=== PATIENT | female | born 1950 | race Caucasian/White ===

== ENCOUNTER 2021-11-12 11:35 | Outpatient (CLI) | payer MEDICARE, OTHER, SELFPAY ==
[2021-11-12 13:57] LABS: Cholesterol* 193 mg/dL (90-199); Triglycerides* 163 mg/dL (40-149)
[2021-11-12 13:58] LABS: HDL Cholesterol* 57 mg/dL (>=50); LDL Cholesterol Calculated 103 mg/dL (<100)
[2021-11-12 14:31] LABS: Vitamin D 25 Hydroxy* 34 ng/mL (30-80)
== END 2021-11-12 11:36 | disposition home or self-care (01) ==
LOC: RAD 11:37
PROVIDERS: PCP Internal Medicine; Visit Provider Internal Medicine
DX: Z00.00 Encounter for general adult medical examination without abnormal findings (principal); M81.0 Age-related osteoporosis without current pathological fracture; E78.5 Hyperlipidemia, unspecified; R51.9 Headache, unspecified; F32.9 Major depressive disorder, single episode, unspecified; F41.9 Anxiety disorder, unspecified
CPT/HCPCS: 36415; 80061; 82306

== ENCOUNTER 2022-01-17 13:59 | Outpatient (CLI) | payer MEDICARE, OTHER, SELFPAY ==
--- NOTE | 2022-01-17 14:00 | CRLHL7_ITS ---
For Patients: As a result of the Century Cures Act, medical imaging exams and procedure reports are released immediately into your electronic medical record. You may view this report before your referring provider. If you have questions, please contact your health care provider. DXA BONE MINERAL DENSITY STUDY Current height (in): 67.5. Weight (lb): 175.0. Menopause age: 44. Ethnicity: White. 1. Have you had a previous hip or vertebral fracture? Yes. 2. Have you had any fractures during your adult life which did not result from significant trauma (e.g., auto accident)? Yes. 3. Did either of your parents have a hip fracture? Yes. 4. Do you smoke? No. 5. Have you ever taken Glucocorticoids? No. 6. Do you have rheumatoid arthritis? No. 7. Do you have secondary osteoporosis? No. 8. Do you drink 3 or more alcoholic drinks per day? No. 9. Are you being treated for osteoporosis? No. 10. Have you ever taken any of the following medications: Actonel, Evista, Fosamax, Miacalcin, Reclast, Boniva, Forteo, HRT (i.e. estrogen/hormone therapy), Protelos, Prolia, Vitamin D, Calcium, other ??? please specify. ANSWER: Yes, Fosamax, vitamin D, calcium. 11. Do you have any of the following medical conditions: Anorexia or bulimia, asthma or emphysema, end stage renal disease, hyperparathyroidism, any seizure disorders, cancer, inflammatory bowel diseases, hysterectomy, other ??? please specify. ANSWER: Yes, stroke 2009. 12. What was your maximum height (inches)? Not provided. 13. Do you perform weight bearing exercise regularly? Yes. 14. Do you regularly consume dairy products? Yes. 15. Do you drink caffeinated beverages? Yes. If female: 16. At what age did your period start? 17. 17. Are you premenopausal? No. 18. How many full term pregnancies have you had? 1. 19. Have you ever missed your period for more than 6 months in a row (not including or menopause)? No. TECHNIQUE: Bone mineral density study was performed using the [employer] [facility]. FINDINGS: The results of the study expressed as bone mineral density (BMD) are as follows: Lumbar spine L1 to L3: BMD: 0.716 g/cm2. T-score: -2.7. Z-score: -0.7. Neck Left: BMD: 0.440 g/cm2. T-score: -3.7. Z-score: -1.9. Total Left: BMD: 0.629 g/cm2. T-score: -2.6. Z-score: -1.1. IMPRESSION: Osteoporosis. COMPARISON: Compared with scan of 04/02/2010, the bone mineral density has increased by 1.4 percent at the spine and decreased by 9.3 percent at the left hip. Bandar Rodriguez M.D. Diagnostic Radiologist [email or web address] Transcribed: 9:30 a.m. DW/Dictated by: Bandar Rodriguez MD @ 01/18/2022 8:22:00 AM (Electronically Signed)
--- NOTE | 2022-01-17 14:40 | CRLHL7_ITS ---
For Patients: As a result of the Century Cures Act, medical imaging exams and procedure reports are released immediately into your electronic medical record. You may view this report before your referring provider. If you have questions, please contact your health care provider. BILATERAL SCREENING MAMMOGRAM WITH COMPUTER-AIDED DETECTION AND TOMOSYNTHESIS TECHNIQUE: CC and MLO views were obtained. These mammographic images have been obtained using full-field digital technique. These mammographic images were interpreted with the benefit of computer-aided detection. Breast Tomosynthesis was used in this interpretation. COMPARISON FILM: 10/04/20, 03/01/19, 04/01/17. FINDINGS: There are scattered areas of fibroglandular density IMPRESSION: There is no radiographic evidence for malignancy. ASSESSMENT: BI-RADS Category 2: Benign RECOMMENDATION: Routine screening mammogram in 1 year. A lay language report of this examination will be provided to the patient. Bandar Rodriguez M.D. Diagnostic Radiologist [email or web address] TIRSO/Dictated by: Bandar Rodriguez MD @ 01/18/2022 8:10:00 AM (Electronically Signed)
== END 2022-01-17 14:00 | disposition home or self-care (01) ==
LOC: RAD 13:59
PROVIDERS: PCP Internal Medicine; Visit Provider Internal Medicine
DX: Z12.31 Encounter for screening mammogram for malignant neoplasm of breast (principal); M81.0 Age-related osteoporosis without current pathological fracture
CPT/HCPCS: 77063; 77067; 77080

== ENCOUNTER 2022-02-06 16:21 | Outpatient (CLI) | payer MEDICARE, OTHER, SELFPAY ==
[2022-02-06 12:18] LABS: Creatinine* 0.6 mg/dL (0.5-1.5); Estimated Glomerular Filt Rate 97 ml/min
[2022-02-06 17:03] LABS: Calcium* 9.5 mg/dL (8.4-10.6)
== END 2022-02-06 16:22 | disposition home or self-care (01) ==
PROVIDERS: PCP Internal Medicine; Visit Provider Internal Medicine
DX: M81.0 Age-related osteoporosis without current pathological fracture (principal)
CPT/HCPCS: 82310; 82565

== ENCOUNTER 2022-03-01 09:54 | Outpatient (RCR) | payer MEDICARE, OTHER, SELFPAY ==
--- NOTE | 2022-02-13 10:22 | URNOTE ---
Request received for authorization for Zoledronic acid (Reclast) ([id number]). Prior authorization is not required as services are based on medical necessity and follow Medicare guidelines.
[2022-03-01 10:30] VITALS: BP 129/86; PULSE 81; RESP 16; TEMP 36.1; O2SAT 94
--- NOTE | 2022-03-01 16:29 | ONC.NURNOTE ---
ca 9.5. cr. clear. 86. ok to give reclast.
== END 2022-08-28 23:59 | disposition home or self-care (01) ==
LOC: CCIC 09:54
PROVIDERS: PCP Internal Medicine; Referring Provider Internal Medicine; Visit Provider Internal Medicine
DX: M81.0 Age-related osteoporosis without current pathological fracture (principal)
CPT/HCPCS: 96365; J3489

== ENCOUNTER 2022-07-28 12:01 | Observation (INO) | payer MEDICARE, OTHER, SELFPAY ==
[2022-07-28] VITALS (9 sets, daily range): BP systolic 126–171; BP diastolic 80–106; PULSE 76–97; RESP 16–22; TEMP 36.6–36.8; O2SAT 85–95; BMI 28.2; BMI 27.6
--- NOTE | 2022-07-28 12:32 | ED.URI ---
HPI - URI/Sore Throat General Time Seen by Provider: 12:32 Date Seen: 07/28/22 Chief Complaint: Cough Stated Complaint: Short of breath, cough Time Seen by Provider: 07/28/22 12:15 Source: patient Mode of arrival: ambulatory Limitations: no limitations History of Present Illness HPI Narrative: Pat is a very pleasant 72-year-old female with a history of hemorrhagic stroke with right-sided paralysis, anxiety who is here today for evaluation regarding a cough and shortness of breath. Patient had the onset of symptoms on Friday night and complained to her friend who is here on of a cough. She was tested for COVID on July 26 and yesterday and was negative. Note onset of symptoms on but not feeling well on Friday night. Patient notes chronic difficulty with chronic congestion of the right lung because of her hemiparesis. She has not had a fever but has had mild nausea. No diarrhea. Denies sore throat or runny nose. She did have Tylenol this morning at 0800 hours and she thinks that this helped her and she was feeling better. Her major complaint is a headache with coughing. Related Data Home Medications Medication Instructions Recorded Confirmed calcium-vitamin D3-vitamin K 500 1 tab PO BID 11/12/21 05/28/22 mg-200 unit-40 mcg tablet Previous Rx's Medication Instructions Recorded baclofen 10 mg tablet 10 mg PO BID #180 tabs 11/12/21 fluoxetine 40 mg capsule 40 mg PO DAILY #90 caps 11/12/21 gabapentin 100 mg capsule 100 mg PO TID #270 caps 11/12/21 omeprazole 20 mg capsule,delayed 20 mg PO QAM #90 caps 11/12/21 release simvastatin 20 mg tablet 20 mg PO .Bedtime #90 tabs 11/12/21 acetaminophen 500 mg tablet 1,000 mg PO BID PRN fever or pain 05/07/22 #360 tabs benzoyl peroxide 2.5 % topical gel 1 applic topical QAM #60 grams 05/07/22 clindamycin phosphate 1 % topical 1 applic topical .Bedtime #60 grams 05/07/22 gel sennosides 8.6 mg tablet 3 mg PO BID PRN constipation #180 05/07/22 tabs Allergies Allergy/AdvReac Type Severity Reaction Status Date / Time sulfamethoxazole AdvReac Mild Nausea Verified 11/12/21 11:02 [From Sulfamethoxazole-Trimethoprim] trimethoprim AdvReac Mild Nausea Verified 11/12/21 11:02 [From Sulfamethoxazole-Trimethoprim] Review of Systems Status of ROS: Reports: 10 or more systems reviewed and unremarkable except as noted in History and below Const: Reports: chills and fatigue; Denies: fever ENMT: Reports: difficulty swallowing (Chronic on the right); Denies: throat pain or neck pain Cardio: Reports: lightheadedness and shortness of breath with exertion; Denies: chest pain or swelling of feet/ankles Resp: Reports: shortness of breath, cough and wheezing GI: Reports: nausea and difficulty swallowing (Chronic on the right); Denies: abdominal pain, vomiting or diarrhea Musculo: Denies: neck pain Neuro: Reports: headache (With coughing) Psych: Reports: anxiety Endo: Reports: fatigue Allergy/Immuno: Reports: wheezing PFSH PFSH Medical History Abscess of skin and subcutaneous tissue ?L02.91 - Cutaneous abscess, unspecified (ICD-10) History of pelvic fracture (2012) ?Z87.81 - Personal history of (healed) traumatic fracture (ICD-10) History of small bowel obstruction (02/2011) ?Z87.19 - Personal history of other diseases of the digestive system (ICD-10) Surgical History History of craniotomy (04/2009) ?Z98.890 - Other specified postprocedural states (ICD-10) History of laparoscopic appendectomy (12/2010) ?Z90.49 - Acquired absence of other specified parts of digestive tract (ICD-10) History of open reduction and internal fixation (ORIF) procedure (05/2010) ?Z98.890 - Other specified postprocedural states (ICD-10) Family History Unknown Colon polyps Social History Smoking Status: Never smoker How often do you have a drink containing alcohol: never AUDIT-C Alcohol total score: 0 Non-prescribed substance use: denies use Little interest or pleasure in doing things: not at all Feeling down, depressed, or hopeless: not at all Exam Narrative: Exam Narrative: Patient is alert and oriented. Nontoxic in appearance. She is breathing a quite well with oxygen levels at 90-91% occasionally 93%. If she tells me that she is short of breath she suddenly developed some wheezing. However this is distractible. EOM is full. Obvious cranial deformity on the left episcopalian parietal area. Well-healed. Oral cavity with moist mucous membranes. Neck is supple no lymphadenopathy Heart with regular rate and rhythm. Lungs are clear bilaterally. Perhaps some decreased breath sounds in the right lower lung base. Abdomen is soft nontender. Lower extremities with out a significant edema. Const: Vital Signs, click to edit/add: Vital Signs - 24 hr 07/28/22 12:25 07/28/22 15:16 07/28/22 15:02 Temperature 98.3 F Pulse Rate 97 Pulse Rate [Pulse Oximeter] 95 Respiratory Rate 17 Blood Pressure [Le ft Upper Arm] 171/106 H Pulse Oximetry 93 90 85 L Oxygen Delivery Me thod Room Air Nasal Cannula Room Air Oxygen Flow Rate 4 07/28/22 15:10 Temperature Pulse Rate Pulse Rate [Pulse Oximeter] Respiratory Rate Blood Pressure [Le ft Upper Arm] Pulse Oximetry Oxygen Delivery Me thod Nasal Cannula Oxygen Flow Rate 4 Documenting provider has reviewed patient's vital signs: yes Course Course Hospital Course: Patient is strongly suspicious for COVID although she has had 2- tests at [facility] where she currently resides. COVID PCR/influenza currently ordered. Will place an IV and order CBC, comprehensive, CRP, chest x-ray, and give small bolus of IV fluids 500 mL. Tylenol 1 g p.o. Reevaluation(s) Reevaluation #1: Patient noted to have a positive urinalysis. A admittedly it is somewhat contaminated but I do believe this is real. Patient will be treated with 1 g IV Rocephin. O2 sats continue to dip down to 88-89%. Will try some oxygen to see if her shortness of breath is improved. X-ray was reassuring but given patient's complaint and mild hypoxia have ordered a CT of the chest for PE rule out. Surprisingly COVID is negative. White count slightly depressed. Reevaluation #2: Patient much improved on oxygen. O2 sats now 93-98%. Subjectively also much improved. CT done but results are currently pending. Vital Signs Vital signs: Initial Vital Signs Temperature 98.3 F 07/28/22 12:25 Temperature Source Temporal Artery Scan 07/28/22 12:25 Pulse Rate 95 07/28/22 12:25 Respiratory Rate 17 07/28/22 12:25 Blood Pressure 171/106 H 07/28/22 12:25 Blood Pressure Mean 127 07/28/22 12:25 Pulse Oximetry 93 07/28/22 12:25 Oxygen Delivery Method Room Air 07/28/22 12:25 Vital Signs Temperature 98.3 F 07/28/22 12:25 Pulse Rate 95 07/28/22 12:25 Respiratory Rate 17 07/28/22 12:25 Blood Pressure 171/106 H 07/28/22 12:25 Pulse Oximetry 93 07/28/22 12:25 Oxygen Delivery Method Room Air 07/28/22 12:25 Temperature 98.3 F 07/28/22 12:25 Pulse Rate 97 07/28/22 15:02 Respiratory Rate 17 07/28/22 12:25 Blood Pressure 171/106 H 07/28/22 12:25 Pulse Oximetry 90 07/28/22 15:16 Oxygen Delivery Method Nasal Cannula 07/28/22 15:16 Oxygen Flow Rate 4 07/28/22 15:16 MDM - URI/Sore Throat MDM Narrative Medical decision making narrative: 1. UTI-Rocephin 1 g IV. Culture pending. 2. Viral syndrome-patient has tested negative for COVID but certainly mild leukopenia, hypoxia and shortness of breath suggest this to be the cause of patient's symptoms. CT accomplished and results are currently pending. Dr. Villela will follow-up on these. 3. Headache patient has headache only with cough. Tylenol 1 g given at noon. No new neurological deficits. 4. . Disposition-admission to the floor under the care of hospitalist Dr. Checo Villela. Medical Records Attestation: I reviewed the patient's medical records. Lab Data Attestation: I reviewed the patient's lab results. Labs: Lab Results 07/28/22 07/28/22 07/28/22 Range/Units 12:30 13:20 13:40 WBC 4.30 L (4.50-11.00) K/uL RBC 5.12 (4.00-5.20) m/uL Hgb 16.1 H (12.0-16.0) gm/dL Hct 48.0 (33.0-51.0) % MCV 94 (80-100) fL MCH 31 (26-34) pg MCHC 34 (32-36) gm/dL RDW Coeff of Alex 13.2 (11.5-15.5) % Plt Count 221 (140-440) K/uL Neut % (Auto) 58.2 (42.0-72.0) % Lymph % (Auto) 33.7 (20-44) % [place] % (Auto) 7.9 (0.0-11.0) % Eos % (Auto) 0.2 (0.0-7.0) % Baso % (Auto) 0.0 (0.0-3.0) % Neut # (Auto) 2.50 (1.7-7.0) K/uL Lymph # (Auto) 1.40 (0.90-2.90) K/uL [place] # (Auto) 0.30 (0.00-0.90) K/UL Eos # (Auto) 0.00 (0.00-0.50) K/uL Baso # (Auto) 0.00 (0.00-0.30) K/uL Sodium 141 (135-149) mmol/L Potassium 3.5 L (3.6-5.1) mmol/L Chloride 110 (96-114) mmol/L Carbon Dioxide 23 (20-32) mmol/L BUN 7 (7-30) mg/dL Creatinine 0.4 L (0.5-1.5) mg/dL Estimated Creat Clear 49.00 Estimated GFR 106 ml/min Glucose 100 (60-115) mg/dL Lactate 0.9 (0.5-1.9) mmol/L Calcium 9.0 (8.4-10.6) mg/dL Total Bilirubin 0.8 (0.1-1.5) mg/dL AST 27 (12-35) U/L ALT 24 (4-35) U/L Alkaline Phosphatase 98 (40-150) U/L Troponin I < 0.01 L (0.01-0.04) ng/mL C-Reactive Protein 1.4 H (0.5-1.0) mg/dL Total Protein 7.7 (6.0-8.3) g/dL Albumin 4.3 (3.3-5.0) g/dL Urine Color Light yellow (Yellow) Urine Appearance Cloudy A (Clear) Urine pH 7.0 (5.0-8.5) Ur Specific Cardinal 1.010 (1.000-1.030) Urine Protein Negative (Negative) Urine Glucose (UA) Negative (Negative) Urine Ketones Trace A (Negative) Urine Blood 1+ A (Negative) Urine Nitrite Positive A (Negative) Urine Bilirubin Negative (Negative) Urine Urobilinogen 0.2 (0.2-1.0) Ur Leukocyte Esterase 3+ A (Negative) Urine RBC 5-10 A (0-2) Urine WBC >100 A (0-5) Ur Squamous Epith Cells Moderate A (None-Few) Urine Bacteria Many A (None) SARS-CoV-2 (PCR) Negative SARS-CoV-2 (Negative) Influenza Type A (PCR) Negative PCR FLU A (Negative) Influenza Type B (PCR) Negative PCR FLU B (Negative) Imaging Data Chest x-ray: Attestation: I have reviewed the pertinent imaging results. My impression: No obvious infiltrates Radiologist's impression: o new focal pulmonary opacity, pneumothorax, or pleural effusion. Normal cardiac size. Similar thoracic aortic tortuosity. IMPRESSION: No acute cardiopulmonary findings. Discharge Plan Discharge Clinical Impression: URI (upper respiratory infection), Hypoxia, Acute UTI Patient Disposition: Admitted As Inpatient Condition: Improved
--- NOTE | 2022-07-28 12:53 | CRLHL7_ITS ---
For Patients: As a result of the Century Cures Act, medical imaging exams and procedure reports are released immediately into your electronic medical record. You may view this report before your referring provider. If you have questions, please contact your health care provider. INDICATION: Cough. TECHNIQUE: Portable AP chest radiograph. COMPARISON: 05/04/2021. FINDINGS: No new focal pulmonary opacity, pneumothorax, or pleural effusion. Normal cardiac size. Similar thoracic aortic tortuosity. IMPRESSION: No acute cardiopulmonary findings. Dictated by Dmitriy Jones MD @ 07/28/2022 1:59:06 PM Dictated by: Dmitriy Jones MD @ 07/28/2022 13:59:09 (Electronically Signed)
[2022-07-28] MEDS: ACETAMINOPHEN 500 MG TABLET 1000 MG PO ×2 (13:10→21:07)
[2022-07-28] MEDS: GABAPENTIN 100 MG CAPSULE PO ×2 (13:10→21:08)
[2022-07-28 13:12] LABS: PCR FLU A Negative PCR FLU A (Negative); PCR FLU B Negative PCR FLU B (Negative)
[2022-07-28 13:16] LABS: SARS PCR* Negative SARS-CoV-2 (Negative)
[2022-07-28] MEDS: 0.9 % SODIUM CHLORIDE 500 ML 500 ML IV (13:20)
[2022-07-28 13:30] LABS: Eosinophils Percent Auto 0.2 % (0.0-7.0); Hemoglobin* 16.1 gm/dL (12.0-16.0); Lymphocytes Percent Auto 33.7 % (20-44); Mean Corpuscular HGB Conc 34 gm/dL (32-36); Mean Corpuscular Hemoglobin 31 pg (26-34); Mean Corpuscular Volume 94 fL (80-100); Monocytes Percent Auto 7.9 % (0.0-11.0); Neutrophils Percent Auto 58.2 % (42.0-72.0); Platelet Count* 221 K/uL (140-440); RDW Coefficient of Variation % 13.2 % (11.5-15.5); Red Blood Count 5.12 m/uL (4.00-5.20)
[2022-07-28 13:31] LABS: Lactate* 0.9 mmol/L (0.5-1.9)
[2022-07-28 13:32] LABS: Slide Review Reflex No
[2022-07-28 13:50] LABS: Appearance Urine Cloudy (Clear); Bilirubin Urine Negative (Negative); Blood Urine 1+ (Negative); Color Urine Light yellow (Yellow); Glucose Urine Negative (Negative); Ketones Urine Trace (Negative); Leukocyte Esterase Urine 3+ (Negative); Nitrite Urine Positive (Negative); Protein Urine Negative (Negative); Urobilinogen Urine 0.2 (0.2-1.0)
[2022-07-28 13:51] LABS: Albumin* 4.3 g/dL (3.3-5.0); Chloride* 110 mmol/L (96-114); Sodium* 141 mmol/L (135-149)
[2022-07-28 13:52] LABS: Potassium* 3.5 mmol/L (3.6-5.1)
[2022-07-28 13:54] LABS: Creatinine* 0.4 mg/dL (0.5-1.5); Estimated Glomerular Filt Rate 106 ml/min
[2022-07-28 13:55] LABS: Alanine Aminotransferase* 24 U/L (4-35); Alkaline Phosphatase* 98 U/L (40-150); Aspartate Amino Transferase* 27 U/L (12-35); Bilirubin Total* 0.8 mg/dL (0.1-1.5); Blood Urea Nitrogen* 7 mg/dL (7-30); Carbon Dioxide* 23 mmol/L (20-32); Glucose* 100 mg/dL (60-115); Total Protein* 7.7 g/dL (6.0-8.3)
[2022-07-28 13:58] LABS: C Reactive Protein* 1.4 mg/dL (0.5-1.0)
[2022-07-28 14:11] LABS: Troponin I* < 0.01 ng/mL (0.01-0.04)
[2022-07-28 14:12] LABS: Bacteria Urine Many; Squamous Epithelial Cell Urine Moderate (None-Few); WBC Urine >100 (0-5)
--- NOTE | 2022-07-28 14:37 | CRLHL7_ITS ---
For Patients: As a result of the Century Cures Act, medical imaging exams and procedure reports are released immediately into your electronic medical record. You may view this report before your referring provider. If you have questions, please contact your health care provider. INDICATION: Hypoxia. Shortness of breath. COMPARISON: Chest radiograph from today. TECHNIQUE: CT examination of the chest was performed with the uneventful intravenous administration of 95 cc of Isovue 370 while 1.5 mm thick axial sections were obtained from above the apices of the lungs through the mid renal level. Please note that all CT scans at this facility use dose modulation, iterative reconstruction, and/or weight-based dosing when appropriate to reduce radiation dose to as low as reasonably achievable. FINDINGS: : There is no sign of pulmonary embolism, with normal enhancement and branching of the pulmonary arteries. There is mild eventration of the left hemidiaphragm with mild atelectasis along the posterior left hemidiaphragm. The rest of the chest is clear. There is no sign of mediastinal or hilar mass or adenopathy. The heart is normal in appearance for the patient`s age. There is age appropriate appearance of the thoracic aorta and ascending great vessels. There is no sign of supraclavicular or axillary mass or adenopathy. The visualized superior liver, spleen, pancreas, kidneys, and adrenals are normal in appearance. There is a small hiatal hernia. There is mild loss of T10 vertebral body height with a mild superior endplate fracture of indeterminate age. There is a mild superior T11 endplate fracture without loss of vertebral body height. This is of indeterminate age. IMPRESSION: No sign of pulmonary embolism. No significant abnormality in the chest. Small hiatal hernia. Mild T10 compression fracture with mild superior T10 and T11 endplate fractures, of indeterminate age. Please note that all CT scans at this facility use dose modulation, iterative reconstruction, and/or weight-based dosing when appropriate to reduce radiation dose to as low as reasonably achievable. Dictated by Adalberto Phillip MD @ 07/28/2022 3:57:50 PM (Electronically Signed)
[2022-07-28] MEDS: cefTRIAXone 1 GM in 0.9 % SODIUM CHLORIDE Mini-bag 100 ML IVPB (15:15)
--- NOTE | 2022-07-28 16:13 | ED.NURSE ---
Report given to PREETHI [place].
--- NOTE | 2022-07-28 16:22 | ED.NURSE ---
Pt brought down to M/S via cart by EDT with belongings and personal w/c. Tolerated transfer well.
--- NOTE | 2022-07-28 16:44 | RESP.RT ---
Patient had drop of SaO2 to 85%, was placed on 4 Lpm NC in ED, weaned to 2 Lpm NC by Nursing. Moved to Med/Surg, placed on NC 2 Lpm, SaO2 95%. Bilateral breath sound with fine crackles and very slight expiratory wheeze in right base. clears with wet/moist, coarse, loose, non-productive cough, patient possible swallowed secretions. Patient has effective cough, able to clear secretions when present. When encouraged patient is able to large deep breath.
--- NOTE | 2022-07-28 17:17 | PM.IMHP1 ---
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 Patient awoke Friday night with cough and dyspnea. She says it is worse when she is supine. The cough is quite difficult for her, because as a sequelae of her hemorrhagic stroke, her head hurts whenever she coughs. She has not had a fever. She does feel some dyspnea. She has had some minor upper respiratory symptoms including a scratchy throat and some head congestion. She self tested for COVID a couple times with negative results. She is not having any pain associated with breathing just with coughing. She does not have chest pain or abdominal pain. She does have some chronic pain problems as a sequelae of her hemorrhagic stroke which occurred 13 years ago. No history of lung disease. No history of heart disease. Review of Systems Narrative: She reports no other new concerns other than noted above. Chronically she is most bothered by a pain syndromes related to her hemorrhagic stroke. She currently has some ability to bear weight on her right lower extremity button minimal function in her right upper extremity. [facility] Medical History Abscess of skin and subcutaneous tissue ?L02.91 - Cutaneous abscess, unspecified (ICD-10) History of pelvic fracture (2012) ?Z87.81 - Personal history of (healed) traumatic fracture (ICD-10) History of small bowel obstruction (02/2011) ?Z87.19 - Personal history of other diseases of the digestive system (ICD-10) Surgical History History of craniotomy (04/2009) ?Z98.890 - Other specified postprocedural states (ICD-10) History of laparoscopic appendectomy (12/2010) ?Z90.49 - Acquired absence of other specified parts of digestive tract (ICD-10) History of open reduction and internal fixation (ORIF) procedure (05/2010) ?Z98.890 - Other specified postprocedural states (ICD-10) Family History (Updated 07/28/22 @ 17:22 by Kirill Villela MD) Unknown Colon polyps Brother COPD (chronic obstructive pulmonary disease) Coronary artery disease Lung cancer Diabetes Social History (Updated 07/28/22 @ 17:23 by Kirill Villela MD) Narrative: She lives at [facility]. She is relatively independent in transfers. 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 She walks in the hallway holding onto the railing every day. She has a remote history of minimal smoking. She does not drink alcohol. Code status is full. Smoking Status: Never smoker How often do you have a drink containing alcohol: never AUDIT-C Alcohol total score: 0 Non-prescribed substance use: denies use Little interest or pleasure in doing things: not at all Feeling down, depressed, or hopeless: not at all Meds Home Medications and Allergies Home Medications Medication Instructions Recorded Confirmed Type calcium-vitamin D3-vitamin K 500 1 tab PO BID 11/12/21 07/28/22 History mg-200 unit-40 mcg tablet Allergies Allergy/AdvReac Type Severity Reaction Status Date / Time sulfamethoxazole AdvReac Mild Nausea Verified 11/12/21 11:02 [From Sulfamethoxazole-Trimethoprim] trimethoprim AdvReac Mild Nausea Verified 11/12/21 11:02 [From Sulfamethoxazole-Trimethoprim] Exam Narrative: Exam Narrative: She is alert and appears in no distress. A course rhonchus cough is noted. Breathing appears unlabored with supplemental oxygen. Eyes are normal. Pupils are equal round reactive to light. Oropharynx with dry mucous membranes. Neck is supple without mass or adenopathy or tenderness. Palpation of the head noted tenderness in the low left frontal parietal area from prior craniotomy. No other apparent trauma. Respirations are clear to auscultation without wheezing rales or rhonchi. Breathing is unlabored. Cardiovascular: S1, S2, regular rate and rhythm. No murmur gallop or rub. Abdomen: Bowel sounds active. Abdomen is soft without tenderness or mass. External genitalia normal. Palpation over her back shows no tenderness and no skin breakdown. Lower extremities with trace edema bilaterally. She is able to lift her right foot off the bed but has minimal motion in her right foot. She has intact pedal pulses. Feet are warm to touch with good circulation. Skin is without rash. Const: Vital Signs, click to edit/add: Vital Signs - 24 hr 07/28/22 12:25 07/28/22 15:16 07/28/22 15:02 Temperature 98.3 F Pulse Rate 97 Pulse Rate [Left B rachial] Pulse Rate [Pulse Oximeter] 95 Respiratory Rate 17 Blood Pressure Blood Pressure [Le ft Arm] Blood Pressure [Le ft Upper Arm] 171/106 H Pulse Oximetry 93 90 85 L Oxygen Delivery Me thod Room Air Nasal Cannula Room Air Oxygen Flow Rate 4 07/28/22 15:10 07/28/22 15:35 07/28/22 16:15 Temperature Pulse Rate 88 91 Pulse Rate [Left B rachial] Pulse Rate [Pulse Oximeter] Respiratory Rate Blood Pressure 167/95 H Blood Pressure [Le ft Arm] Blood Pressure [Le ft Upper Arm] Pulse Oximetry 93 89 Oxygen Delivery Me thod Nasal Cannula Nasal Cannula Oxygen Flow Rate 4 2 07/28/22 16:42 07/28/22 16:49 Temperature 98.3 F Pulse Rate Pulse Rate [Left B rachial] 76 Pulse Rate [Pulse Oximeter] Respiratory Rate 22 16 Blood Pressure Blood Pressure [Le ft Arm] 126/80 Blood Pressure [Le ft Upper Arm] Pulse Oximetry 95 94 Oxygen Delivery Me thod Nasal Cannula Nasal Cannula Oxygen Flow Rate 2 2 Documenting provider has reviewed patient's vital signs: yes Hospitalist - H&P: Result Labs Labs: Short CBC 07/28/22 Range/Units 13:20 WBC 4.30 L (4.50-11.00) K/uL Hgb 16.1 H (12.0-16.0) gm/dL Hct 48.0 (33.0-51.0) % Plt Count 221 (140-440) K/uL BMP 07/28/22 13:20 Sodium 141 Potassium 3.5 L Chloride 110 Carbon Dioxide 23 BUN 7 Creatinine 0.4 L Glucose 100 Calcium 9.0 Cardiac Enzymes 07/28/22 Range/Units 13:20 Troponin I < 0.01 L (0.01-0.04) ng/mL Liver Function 07/28/22 Range/Units 13:20 Total Bilirubin 0.8 (0.1-1.5) mg/dL AST 27 (12-35) U/L ALT 24 (4-35) U/L Alkaline Phosphatase 98 (40-150) U/L Albumin 4.3 (3.3-5.0) g/dL Urine 07/28/22 Range/Units 13:40 Urine Color Light yellow (Yellow) Urine Appearance Cloudy A (Clear) Urine pH 7.0 (5.0-8.5) Ur Specific [place] 1.010 (1.000-1.030) Urine Protein Negative (Negative) Urine Glucose (UA) Negative (Negative) Imaging CT scan - chest: Attestation: I have reviewed the pertinent imaging results. (Chest CT shows no acute infiltrate, no pulmonary embolism. Mild vertebral compression fractures lower thoracic spine.) Assessment and Plan Assessment and plan (1) Hypoxia: Status: Acute (2) Bronchitis: Status: Acute (3) Acute UTI: Status: Acute (4) RAJENDRA (generalized anxiety disorder): Problem comment: Fluoxetine started outside 11/06 Status: Chronic (5) History of hemorrhagic stroke with residual hemiparesis: Problem comment: Ruptured AVM. R hemiparesis. 04/2009 Status: Chronic Plan 72-year-old female with history of right hemiparesis secondary to hemorrhagic stroke 13 years ago now presents with a 3-4 day history of cough and dyspnea. She is found to be hypoxic requiring 2 L of oxygen to maintain her O2 sats above 90%. Imaging with CT for PE shows no acute PE or infiltrates. Clinically she has a syndrome of a viral respiratory illness. She also has a urinary tract infection. Will treat with ceftriaxone for respiratory infection and UTI and temporarily and treat with Zithromax for community-acquired pneumonia in pending her clinical course and her hypoxia. Total time is 60 min, 40 min in coordination of care and in discussing with patient and family ongoing evaluation and management of hypoxia and respiratory infection/
[2022-07-28 17:22] LABS: NT Pro B Type NatriureticPept* 137 pg/mL
--- NOTE | 2022-07-28 18:40 | PC.NURSE ---
shift note: pt to room @ 1645 via cart from ED. Pt a&o x3. pt states she has sharp lt side head pain with coughing. Pt has moist non productive cough. LS insp fine crkls bibasilar. pt placed on 2L pnc with sats 94-97%. Pt states she feels sob. pt placed in semi fowlers to assist with sob. Pt using bsc with assist of 2 (guidance only). pt rt u/e flaccid. rt l/e is flaccid but pt is able to guide l/e to pivot to surfaces. iv to Lt AC intact.
[2022-07-28] MEDS: AZITHROMYCIN 250 MG TABLET 500 MG PO (18:59)
[2022-07-28] MEDS: SIMVASTATIN 20 MG TABLET PO (21:08)
[2022-07-28] MEDS: GUAIF/CODEINE 200/20MG/10 ML SOLUTION PO (21:08)
[2022-07-28] MEDS: BACLOFEN 10 MG TABLET PO (21:08)
[2022-07-29 00:55] VITALS: O2SAT 91
[2022-07-29 03:36] VITALS: BP 149/84; PULSE 88; RESP 18; TEMP 37.1; O2SAT 93
[2022-07-29] MEDS: GUAIF/CODEINE 200/20MG/10 ML SOLUTION PO (03:46)
[2022-07-29] MEDS: ACETAMINOPHEN 325 MG TABLET 650 MG PO (04:56)
--- NOTE | 2022-07-29 06:29 | PC.NURSE ---
Pt pleasant and cooperative. Is manipulative at times with her care. She is able to due things that she says she cant. Assist of 2 to bedside commode. No BM . only once to commode during the night. Guafenasin with codiene x2 during this 12 hr shift. Prn dose of tylenol 650 mg x1
[2022-07-29 07:00] VITALS: O2SAT 92
[2022-07-29 07:55] VITALS: BP 148/85; PULSE 82; RESP 16; TEMP 36.9; O2SAT 92
[2022-07-29] MEDS: ACETAMINOPHEN 500 MG TABLET 1000 MG PO (09:07)
[2022-07-29] MEDS: FLUOXETINE HCL 20 MG CAPSULE 40 MG PO (09:08)
[2022-07-29] MEDS: cefTRIAXone 1 GM in 0.9 % SODIUM CHLORIDE Mini-bag 100 ML IVPB (09:09)
[2022-07-29] MEDS: GABAPENTIN 100 MG CAPSULE PO ×2 (09:09→12:56)
[2022-07-29] MEDS: BACLOFEN 10 MG TABLET PO (09:09)
[2022-07-29] MEDS: OMEPRAZOLE 20 MG CAPSULE DR PO (09:09)
[2022-07-29] MEDS: SODIUM CHLORIDE 0.9 % (FLUSH) 10 ML SYRINGE 5 ML IVF (09:11)
[2022-07-29] MEDS: SENNOSIDES 1 TAB TABLET PO (09:12)
--- NOTE | 2022-07-29 10:20 | PM.DS1 ---
DS: Providers Provider Time Seen by Provider: 09:30 Date Seen: 07/29/22 Date of admission: 07/28/22 16:00 Primary care physician: Daylin Rosales MD Admitting Clinician: Kirill Villela MD Attending Physician on discharge: Lara Schulz MD Date of Discharge: 07/29/22 DS: Diagnosis Discharge Diagnosis (1) URI (upper respiratory infection): Status: Acute Problem details: Suspect viral URI. No radiographic evidence of infection. (2) Acute UTI: Status: Acute Problem details: Gram-negative rods on urine culture. (3) RAJENDRA (generalized anxiety disorder): Status: Chronic Problem details: Fluoxetine started outside 11/06 (4) History of hemorrhagic stroke with residual hemiparesis: Status: Chronic Problem details: Ruptured AVM. R hemiparesis. 04/2009 DS: Summary Hospital Course Hospital Course: This is a 72-year-old female with history right hemiparesis secondary to stroke 13 years ago who lives in assisted living at [facility] and presented yesterday for cough, dyspnea and hypoxia. Chest x-ray and chest CT showed no acute infiltrates. She is needing some oxygen initially, but this is improved after admission and she is now satting well on room air. He got 2 doses of ceftriaxone and azithromycin. She has not been febrile. She is doing very well today and has been able to care for herself without are assistance. She is in stable condition and will discharge back to [facility] today. She does have g negative rods in her urine for which I have ordered 1 more day of 3rd generation cephalosporin. She has an allergy to Bactrim and her creatinine clearance is low enough that I cannot use Macrobid. Do not have fosfomycin available in our pharmacy. Time Spent with Patient Time attestation: Total time spent providing and/or coordinating discharge services: Exam Narrative: Exam Narrative: General: No acute distress. Awake, alert, oriented x3. No pallor. No jaundice. Oropharynx: Clear. Mucous membranes moist. Cardiovascular: Regular rate and rhythm. No murmurs, gallops, or rubs. Respiratory: No respiratory distress. She is not on oxygen. Clear to auscultation bilaterally. No wheezes or crackles. Abdomen: Bowel sounds present. Soft, nondistended, nontender. Const: Vital Signs, click to edit/add: Vital Signs - 24 hr 07/28/22 12:25 07/28/22 15:16 07/28/22 15:02 Temperature 98.3 F Pulse Rate 97 Pulse Rate [Left B rachial] Pulse Rate [Pulse Oximeter] 95 Respiratory Rate 17 Blood Pressure Blood Pressure [Le ft Arm] Blood Pressure [Le ft Upper Arm] 171/106 H Pulse Oximetry 93 90 85 L Oxygen Delivery Me thod Room Air Nasal Cannula Room Air Oxygen Flow Rate 4 07/28/22 15:10 07/28/22 15:35 07/28/22 16:15 Temperature Pulse Rate 88 91 Pulse Rate [Left B rachial] Pulse Rate [Pulse Oximeter] Respiratory Rate Blood Pressure 167/95 H Blood Pressure [Le ft Arm] Blood Pressure [Le ft Upper Arm] Pulse Oximetry 93 89 Oxygen Delivery Me thod Nasal Cannula Nasal Cannula Oxygen Flow Rate 4 2 07/28/22 16:42 07/28/22 16:49 07/28/22 16:49 Temperature 98.3 F Pulse Rate Pulse Rate [Left B rachial] 76 Pulse Rate [Pulse Oximeter] Respiratory Rate 22 16 18 Blood Pressure Blood Pressure [Le ft Arm] 126/80 Blood Pressure [Le ft Upper Arm] Pulse Oximetry 95 94 94 Oxygen Delivery Me thod Nasal Cannula Nasal Cannula Nasal Cannula Oxygen Flow Rate 2 2 2 07/28/22 21:45 07/29/22 00:55 07/28/22 23:00 Temperature 98 F Pulse Rate Pulse Rate [Left B rachial] 82 88 Pulse Rate [Pulse Oximeter] Respiratory Rate 20 Blood Pressure Blood Pressure [Le ft Arm] 171/106 H Blood Pressure [Le ft Upper Arm] Pulse Oximetry 93 91 Oxygen Delivery Me thod Room Air Room Air Oxygen Flow Rate 07/29/22 03:36 07/29/22 07:55 07/29/22 07:00 Temperature 98.7 F 98.5 F Pulse Rate Pulse Rate [Left B rachial] 88 Pulse Rate [Pulse Oximeter] 82 Respiratory Rate 18 16 Blood Pressure Blood Pressure [Le ft Arm] 149/84 H 148/85 H Blood Pressure [Le ft Upper Arm] Pulse Oximetry 93 92 92 Oxygen Delivery Me thod Room Air Room Air Room Air Oxygen Flow Rate Documenting provider has reviewed patient's vital signs: yes DS: Data Data Completed and Pending Completed studies during hospitalization: Ordering Physician: Daphney Velázquez M.D. Date of Service: 07/28/22 Procedure(s): XR chest 1V portable Accession Number(s): [id number] cc: Daphney Velázquez M.D.; Daylin Rosales M.D.~ For Patients: As a result of the Cures Act, medical imaging exams and procedure reports are released immediately into your electronic medical record. You may view this report before your referring provider. If you have questions, please contact your health care provider. INDICATION: Cough. TECHNIQUE: Portable AP chest radiograph. COMPARISON: 05/04/2021. FINDINGS: No new focal pulmonary opacity, pneumothorax, or pleural effusion. Normal cardiac size. Similar thoracic aortic tortuosity. IMPRESSION: No acute cardiopulmonary findings. Dictated by Dmitriy Jones MD @ 07/28/2022 1:59:06 PM Dictated by: Dmitriy Jones MD @ 07/28/2022 13:59:09 (Electronically Signed) Ordering Physician: Daphney Velázquez M.D. Date of Service: 07/28/22 Procedure(s): CT angio chest PE protocol Accession Number(s): [id number] cc: Daphney Velázquez M.D.; Daylin Rosales M.D.~ For Patients: As a result of the Cures Act, medical imaging exams and procedure reports are released immediately into your electronic medical record. You may view this report before your referring provider. If you have questions, please contact your health care provider. INDICATION: Hypoxia. Shortness of breath. COMPARISON: Chest radiograph from today. TECHNIQUE: CT examination of the chest was performed with the uneventful intravenous administration of 95 cc of Isovue 370 while 1.5 mm thick axial sections were obtained from above the apices of the lungs through the mid renal level. Please note that all CT scans at this facility use dose modulation, iterative reconstruction, and/or weight-based dosing when appropriate to reduce radiation dose to as low as reasonably achievable. FINDINGS: : There is no sign of pulmonary embolism, with normal enhancement and branching of the pulmonary arteries. There is mild eventration of the left hemidiaphragm with mild atelectasis along the posterior left hemidiaphragm. The rest of the chest is clear. There is no sign of mediastinal or hilar mass or adenopathy. The heart is normal in appearance for the patient`s age. There is age appropriate appearance of the thoracic aorta and ascending great vessels. There is no sign of supraclavicular or axillary mass or adenopathy. The visualized superior liver, spleen, pancreas, kidneys, and adrenals are normal in appearance. There is a small hiatal hernia. There is mild loss of T10 vertebral body height with a mild superior endplate fracture of indeterminate age. There is a mild superior T11 endplate fracture without loss of vertebral body height. This is of indeterminate age. IMPRESSION: No sign of pulmonary embolism. No significant abnormality in the chest. Small hiatal hernia. Mild T10 compression fracture with mild superior T10 and T11 endplate fractures, of indeterminate age. Please note that all CT scans at this facility use dose modulation, iterative reconstruction, and/or weight-based dosing when appropriate to reduce radiation dose to as low as reasonably achievable. Dictated by Adalberto Phillip MD @ 07/28/2022 3:57:50 PM (Electronically Signed) Specimen: [id number] RES Collected: 07/28/22-UNK Received: 07/28/22-1412 Source: Urine CC Sp Descrip: Sub Dr: Daphney Velázquez M.D. Other Dr: Procedure Result Site Urine Culture Preliminary ML Organism 1 Gram negative rajesh Ur [place] Count >100,000 CFU/ml Labs on day of discharge: Labs from last 24 hours 07/28/22 07/28/22 07/28/22 13:40 13:20 12:30 WBC 4.30 L RBC 5.12 Hgb 16.1 H Hct 48.0 MCV 94 MCH 31 MCHC 34 RDW Coeff of Alex 13.2 Plt Count 221 Neut % (Auto) 58.2 Lymph % (Auto) 33.7 Ward % (Auto) 7.9 Eos % (Auto) 0.2 Baso % (Auto) 0.0 Neut # (Auto) 2.50 Lymph # (Auto) 1.40 Ward # (Auto) 0.30 Eos # (Auto) 0.00 Baso # (Auto) 0.00 Sodium 141 Potassium 3.5 L Chloride 110 Carbon Dioxide 23 BUN 7 Creatinine 0.4 L Estimated Creat Clear 49.00 Estimated GFR 106 Glucose 100 Lactate 0.9 Calcium 9.0 Total Bilirubin 0.8 AST 27 ALT 24 Alkaline Phosphatase 98 Troponin I < 0.01 L C-Reactive Protein 1.4 H NT-Pro-B Natriuret Pep 137 Total Protein 7.7 Albumin 4.3 Urine Color Light yellow Urine Appearance Cloudy A Urine pH 7.0 Ur Specific [place] 1.010 Urine Protein Negative Urine Glucose (UA) Negative Urine Ketones Trace A Urine Blood 1+ A Urine Nitrite Positive A Urine Bilirubin Negative Urine Urobilinogen 0.2 Ur Leukocyte Esterase 3+ A Urine RBC 5-10 A Urine WBC >100 A Ur Squamous Epith Cells Moderate A Urine Bacteria Many A SARS-CoV-2 (PCR) Negative SARS-CoV-2 Influenza Type A (PCR) Negative PCR FLU A Influenza Type B (PCR) Negative PCR FLU B Preliminary micro results at discharge 07/28/22 Unknown Urine Culture - Preliminary Urine,Clean Catch Gram negative rajesh Discharge Plan Discharge Disposition: Home, Self-Care Date of Admission: 07/28/22 16:00 Attending Provider on Discharge: Lara Schulz Primary Care Provider: Daylin Rosales Condition: Improved Anticipated Discharge Date/Time: 07/29/22 10:25 Discharge Medications: New cefpodoxime 100 mg tablet 100 mg PO BID Qty: 2 0RF Rx Instructions: Start tomorrow morning (07/30/22). Must administer with a meal/food Continued calcium-vitamin D3-vitamin K 500-200-40 mg-unit-mcg tablet 1 tab PO BID baclofen 10 mg tablet 10 mg PO BID Qty: 180 3RF gabapentin 100 mg capsule 100 mg PO TID Qty: 270 3RF fluoxetine 40 mg capsule 40 mg PO DAILY Qty: 90 3RF simvastatin 20 mg tablet 20 mg PO .Bedtime Qty: 90 3RF sennosides 8.6 mg tablet 3 mg PO BID PRN (Reason: constipation) Qty: 180 0RF benzoyl peroxide 2.5 % gel 1 applic topical QAM Qty: 60 11RF Rx Instructions: APPLIED TO FACE clindamycin phosphate 1 % gel 1 applic topical .Bedtime Qty: 60 11RF Rx Instructions: APPLIED TO POSTERIOR THIGH AREA acetaminophen 500 mg tablet 1,000 mg PO BID PRN (Reason: fever or pain) Qty: 360 3RF Rx Instructions: NO MORE THAN 4000 MG/DAY Held omeprazole 20 mg capsule,delayed release(DR/EC) 20 mg PO QAM Qty: 90 3RF Hold Instructions: Resume on 07/31/22. Discharge Orders: Discharge Order (Routine); Ordered 07/29/22 Ordered By: Lara Schulz Patient Education: Urinary Tract Infection in Women (DC), Upper Respiratory Infection (DC) Activity Level: No Restrictions Discharge Diet: Regular Follow Up Appointments: Daylin Rosales MD [Primary Care Provider] - (as needed) Forms: [employer] Info Instructions
[2022-07-29 10:34] VITALS: BP 167/95; PULSE 91; RESP 16; TEMP 36.9
--- NOTE | 2022-07-29 10:40 | PC.SOCIAL ---
Discharge plan: Met with pt who is aware of plan for discharge today. Pt states she is interested in talking with [facility] staff about increasing her services there but has not done so yet. Pt requested social media analyst contact her dtr and sister regardign plans for discharge today and that her sister will be her transportation back at discharge. Faxed information to PREETHI Wasserman at [facility], and left message for dtr regarding plans to discharge pt today with contact number to call back. Spoke with sister who states she is on her way to the [facility] and will be pt's transportation back to [facility]. Dtr states she wants to make sure that [facility] can met pt's needs prior to discharge. RN will give nurse to nurse report to [facility] prior to discharge. Discharge summary and information on admission have been faxed to [facility] by social media analyst. Discharge orders to be faxed at discharge.
--- NOTE | 2022-07-29 13:15 | PC.NURSE ---
Pt alert and orientated. Known right sided paralysis. SBA to commode. Tolerated activity. Dressed and ate independently. Complained of headache due to cough. Scheduled Tylenol given with relief. D/c instructions given verbally to pt and family. Written instructions sent with pt and family. IV removed with tip intact. D/c to [facility] via family at 1311.
== END 2022-07-29 13:11 | disposition home or self-care (01) ==
LOC: ED 13:15 → MEDSURG 16:00
PROVIDERS: Admitting Provider Family Medicine; Emergency Provider Family Medicine; PCP Internal Medicine; Visit Provider Family Medicine
DX: J06.9 Acute upper respiratory infection, unspecified (principal); R09.02 Hypoxemia; N39.0 Urinary tract infection, site not specified; B96.20 Unspecified Escherichia coli [E. coli] as the cause of diseases classified elsewhere; J40 Bronchitis, not specified as acute or chronic; I69.351 Hemiplegia and hemiparesis following cerebral infarction affecting right dominant side; Z86.79 Personal history of other diseases of the circulatory system; R06.00 Dyspnea, unspecified; F41.1 Generalized anxiety disorder; R05.9 Cough, unspecified; R06.02 Shortness of breath; T36.8X5A Adverse effect of other systemic antibiotics, initial encounter; K44.9 Diaphragmatic hernia without obstruction or gangrene; G44.83 Primary cough headache; R68.83 Chills (without fever); R53.83 Other fatigue; R13.10 Dysphagia, unspecified; R42 Dizziness and giddiness; R07.9 Chest pain, unspecified; R06.2 Wheezing; Z87.81 Personal history of (healed) traumatic fracture; Z87.19 Personal history of other diseases of the digestive system; Z98.890 Other specified postprocedural states; Z90.49 Acquired absence of other specified parts of digestive tract; D72.819 Decreased white blood cell count, unspecified; Z20.822 Contact with and (suspected) exposure to COVID-19; Z87.891 Personal history of nicotine dependence
CPT/HCPCS: 36415; 71045; 71260; 80053; 81001; 83605; 83880; 84484; 85025; 86140; 87086; 87186; 87631; 94761; 96361; 96365; 96366; 99285; A9270; G0378; J0696; J7120; Q9967

== ENCOUNTER 2022-11-04 09:50 | Outpatient (CLI) | payer MEDICARE, OTHER, SELFPAY | END 2022-11-04 09:51 | disposition home or self-care (01) | LOC: NFLDREF 11-05 22:08 | PROVIDERS: PCP Internal Medicine; Referring Provider Internal Medicine; Visit Provider Internal Medicine | DX: Z00.00 Encounter for general adult medical examination without abnormal findings (principal); E78.5 Hyperlipidemia, unspecified; M81.0 Age-related osteoporosis without current pathological fracture | CPT/HCPCS: 80061; 82306 ==

== ENCOUNTER 2023-03-05 10:06 | Outpatient (CLI) | payer MEDICARE, OTHER, SELFPAY | END 2023-03-05 10:07 | disposition home or self-care (01) | LOC: NFLDREF 03-06 22:13 | PROVIDERS: PCP Internal Medicine; Referring Provider Internal Medicine; Visit Provider Internal Medicine | DX: M81.0 Age-related osteoporosis without current pathological fracture (principal) | CPT/HCPCS: 82310; 82565 ==

== ENCOUNTER 2023-03-25 09:28 | Outpatient (CLI) | payer MEDICARE, OTHER, SELFPAY ==
--- NOTE | 2023-03-25 09:45 | CRLHL7_ITS ---
For Patients: As a result of the Cures Act, medical imaging exams and procedure reports are released immediately into your electronic medical record. You may view this report before your referring provider. If you have questions, please contact your health care provider. BILATERAL SCREENING MAMMOGRAM WITH COMPUTER-AIDED DETECTION AND TOMOSYNTHESIS TECHNIQUE: CC and MLO views were obtained. These mammographic images have been obtained using full-field digital technique. These mammographic images were interpreted with the benefit of computer-aided detection. Breast Tomosynthesis was used in this interpretation. COMPARISON FILM: 01/17/22, 10/04/20, 03/01/19. FINDINGS: The breasts are almost entirely fatty IMPRESSION: There is no radiographic evidence for malignancy. ASSESSMENT: BI-RADS Category 2: Benign RECOMMENDATION: Routine screening mammogram in 1 year. A lay language report of this examination will be provided to the patient. Hipolito Benavidez M.D. Diagnostic/Nuclear Medicine Radiologist [email or web address] TIRSO/Dictated by: Hipolito Benavidez MD @ 03/26/2023 9:00:00 AM (Electronically Signed)
== END 2023-03-25 09:29 | disposition home or self-care (01) ==
LOC: MAMMO 09:29
PROVIDERS: PCP Internal Medicine; Visit Provider Internal Medicine
DX: Z12.31 Encounter for screening mammogram for malignant neoplasm of breast (principal)
CPT/HCPCS: 77063; 77067

== ENCOUNTER 2023-03-25 11:07 | Outpatient (RCR) | payer MEDICARE, OTHER, SELFPAY ==
[2023-03-25] MEDS: SODIUM CHLORIDE 0.9 % (FLUSH) 10 ML SYRINGE IVF (10:45)
[2023-03-25] MEDS: 0.9 % SODIUM CHLORIDE 250 ml IV (10:45)
[2023-03-25 11:17] VITALS: BP 128/85; PULSE 67; RESP 16; TEMP 35.8; O2SAT 97
== END 2023-09-21 23:59 | disposition home or self-care (01) ==
LOC: CCIC 11:07
PROVIDERS: PCP Internal Medicine; Referring Provider Internal Medicine; Visit Provider Clinical Nurse Specialist
DX: M81.0 Age-related osteoporosis without current pathological fracture (principal)
CPT/HCPCS: 96374; J3489; J7050

== ENCOUNTER 2023-09-18 16:12 | Inpatient (IN) | payer MEDICARE, SELFPAY ==
[2023-09-18 16:16] VITALS: BP 136/88; PULSE 87; RESP 18; TEMP 36.4; O2SAT 93; BMI 27.3
--- NOTE | 2023-09-18 16:42 | CRLHL7_ITS ---
For Patients: As a result of the Century Cures Act, medical imaging exams and procedure reports are released immediately into your electronic medical record. You may view this report before your referring provider. If you have questions, please contact your health care provider. Indication: Left abdominal pain, vomiting, history of bowel obstruction Comparison: None available. Technique: CT of the abdomen and pelvis with IV contrast. 83 mL Isovue 370 IV. Findings: Examination is positive for small bowel obstruction with multiple fluid-filled bowel loops with air-fluid levels seen measuring just under 3 cm in the anterior mid abdomen and pelvis. Mesenteric venous congestion and moderate amount of stranding surrounding these bowel loops especially in the lower pelvis. Swirling of loops around some postsurgical changes around the cecum is seen which appears tethered towards the midline (see image 75, series 2, and image 38, series 4). No pneumatosis or portal venous gas. No mesenteric venous gas. Small amount of perihepatic fluid and small amount of fluid in the pelvis. Trace fluid between the affected bowel loops. The mucosal enhancement appears intact within the bowel loops. Non cirrhotic liver morphology. Patent portal and hepatic veins. The spleen is normal size. No suspicious incidental findings in the lung bases. Adrenal glands appear unremarkable. Kidneys enhance symmetrically without hydronephrosis. No suspicious pancreatic abnormality. The gallbladder appears unremarkable. The IVC and iliac veins are patent. Atherosclerotic changes within the abdominal aorta without abdominal aortic aneurysm. Femoral neck screw fixation. No aggressive appearing osseous lesion. Mild height loss of lower thoracic vertebral bodies. No obvious abnormality involving the uterus or adnexa. Impression: Distal small bowel obstruction which appears tethered and swirling around postoperative changes in the region of the cecum. Small amount of fluid between the bowel loops more inferiorly, with trace amount of fluid around the liver and in the pelvis are concerning but there is no definite pneumatosis or portal venous gas. Correlate with lactate, and exam to determine if there is ischemia. Recommend surgical consult. Please note that all CT scans at this facility use dose modulation, iterative reconstruction, and/or weight-based dosing when appropriate to reduce radiation dose to as low as reasonably achievable. Dictated by Paco Montoya MD @ 09/18/2023 7:50:59 PM (Electronically Signed)
--- OUTSIDE RECORDS SUMMARY | 2023-09-18 16:51 | XMS_ITS | Clinical Summary ---
Author Organization [facility] Address [place], [place] [address] Care Team Providers Care Roller Coaster Designer Name Role Phone Daylin Rosales MD Primary Care Provider [phone] Stella Padron MD Unavailable [phone] Allergies Active Allergy Reactions Criticality Noted Date Comments Sulfamethoxazole-Trimethoprim Nausea Only 09/09 Medications Medication Sig Dispensed Refills Start Date End Date Status simvastatin (ZOCOR) 10 mg tabletIndications:Heal th care maintenance Take 1 tablet by mouth at bedtime. 0 04/17/2015 Active calcium carbonate-vitamin D2, 500 mg-200 units, (OS-MICHEL 500 + D) 500 mg(1,250mg) -200 unit tabletIndications:Heal th care maintenance Take 1 tablet by mouth 2 times daily with meals. 0 04/17/2015 Active clindamycin 1% (CLEOCIN-T) 1 % gel 30 mg one time. Active Benzoyl Peroxide 2.5 % topical cream 60 mg once daily. Apply once daily to affected areas 12/14/2015 Active KETAMINE HCL (KETAMINE 8%-GABAPENTIN 6%-LIDOCAINE 2.5%) gelIndications:Neuropa thic pain Apply 0.3-1 mL topically to affected area(s) 4 times daily. 100 mL 05/28/2016 Active sennosides-docusate, 8.6-50 mg, (SENOKOT S) 8.6-50 mg tabletIndications:[facility] Take 3 tablets by mouth once daily. 0 12/11/2017 Active acetaminophen (TYLENOL EXTRA STRGTH) 500 mg tablet Take 2 tablets by mouth 3 times daily. 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 05/26/2009 Arteriovenous malformation 10/28/2007 Encounters Date Type Department Care Team Description 07/17/2023 10:45 AM CDT - 07/17/2023 11:59 PM CDT Hospital Encounter [facility] [address] [place] [address] Stella Padron MD 07/17/2023 10:45 AM CDT Procedure Only [facility] [address] [place] [phone] Stella Padron MD Procedure (Botox) 07/17/2023 Travel 06/25/2023 Telephone [facility] [address] [place] [phone] Stella Padron MD Procedure from Last 3 Months Social History Tobacco Use Types Packs/Day Years Used Date Smoking Tobacco: Never Smokeless Tobacco: Never Tobacco Cessation:Counseling Given: Yes Alcohol Use Standard Drinks/Week Comments Never 0 (1 standard drink = 0.6 oz pur e alcohol) Sex and Gender Information Value Date Recorded Sex Assigned at Not on file Gender Identity Not on file Sexual Orientation Not on file Obstetrics History Last Filed Vital Signs Vital Sign Reading Time Taken Comments Blood Pressure 150/79 07/17/2023 10:50 AM CDT Pulse 69 07/17/2023 10:50 AM CDT Temperature 36.7 ??C (98.1 ??F) 08/29/2022 1 :35 PM CDT Respiratory Rate 16 01/11/2021 11:0 1 AM CDT Oxygen Saturation 95% 07/17/2023 10: 50 AM CDT Inhaled Oxygen Concentration - - Weight 83.9 kg (185 lb) 05/10/2021 10:3 6 AM [employer]ATERWOR[employer] 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[employer] 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 Patient reported Height 170.2 cm (5' 7) 05/10/2021 10:3 6 AM [employer]ATERWOR[employer] CHIEF ENGINEER Patient reported Body Mass Index 28.98 05/10/2021 10:36 AM [employer]ATERWOR[employer] CHIEF ENGINEER Plan of Treatment Upcoming Encounters Date Type Department Care Team (Late st Contact Info) Description 10/23/2023 11:00 AM CDT Procedure Only [facility] [address] [place] [phone] Stella Padron MD [address] [place], [place] [phone] Health Maintenance Due Date Last Done Comments Tdap 1963 Depression screening for age 12+ 1964 Hepatitis C screening for age 18-79 1970 Tetanus booster 1972 Colonoscopy through age 75 1997 Lipids for age 45-75 1997 Mammogram for age 45-75 1997 Zoster (shingles) series for age 50+ (1 of 2) 2002 DEXA/DXA scan for age 65+ 2017 Medicare Wellness for age 65+ 2017 Pneumococcal series for age 65+ (1 of 1 - PCV) 2017 BMI (ht and wt on same day) for age 18+ 05/10/2022 05/10/2021 COVID-19 vaccine series ( season) 2022 01/31/2022, 06/18/2020, 05/21/2020 Influenza for age 65+ 12/28/2023 Care Teams Roller Coaster Designer Relationship Specialty Start Date End Date Daylin Rosales MD [address] [place], [place] [phone] PCP - General Internal Medicine 04/03/15 Stella Padron MD [facility] [place] [address] Physical Medicince Rehab Physical Medicine and Rehabilitation 4/25/19
--- NOTE | 2023-09-18 16:54 | ED_ITS ---
HPI - General Adult General Date Seen: 09/18/23 Chief complaint: Abdominal Pain Stated complaint: Abdominal pain, vomiting Time Seen by Provider: 09/18/23 16:15 Source: patient, RN notes reviewed and old records reviewed Mode of arrival: ambulatory Limitations: no limitations History of Present Illness HPI narrative: Patient is a 73-year-old woman here with her sister for evaluation of abdominal pain and vomiting. She and her sister both say she was in her usual state of health when she got up today. At around 9:15 a.m. she had her normal breakfast which included fiber 1 serial, steel cut oats, pumpkin pie, apparently she struggles a little bit with constipation and tries to eat a lot of fiber. They went out for a walk after that, she did have a small bowel movement before they left but while they were walking started to feel ill, developed which he thought were gas pains. Went back had another small bowel movement but also vomited twice. She continues to have abdominal pain which is more on the left side than on the right. She continues to feel nauseated. She has not had a fever that she knows of, but she has been feeling hot and cold. She has not had urinary symptoms. She has had an appendectomy, her sister reports that she does have a history of a bowel obstruction in the past. She does not smoke or drink. 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 She is not anticoagulated. Related Data Home Medications ?Medication ?Instructions ?Recorded ?Confirmed calcium carbonate 600 mg-vitamin 1 tab PO BID 09/19/23 09/19/23 D3 5 mcg (200 unit) tablet (Calcium 600 + D(3)) clindamycin phosphate 1 % topical 1 applic topical HS 09/19/23 09/19/23 gel simvastatin 20 mg tablet 20 mg PO HS 09/19/23 09/19/23 Previous Rx's ?Medication ?Instructions ?Recorded benzoyl peroxide 2.5 % topical gel 1 applic topical QAM #60 grams 05/07/22 sennosides 8.6 mg tablet 3 mg (0.3488 x 8.6 mg) PO BID PRN 05/07/22 constipation #180 tabs gabapentin 100 mg capsule 100 mg PO TID #270 caps 11/06/22 omeprazole 20 mg capsule,delayed 20 mg PO QAM #90 caps 11/06/22 release fluoxetine 40 mg capsule 40 mg PO DAILY #90 caps 05/07/23 baclofen 10 mg tablet 10 mg PO BID #180 tabs 05/15/23 Allergies Allergy/AdvReac Type Severity Reaction Status Date / Time sulfamethoxazole AdvReac Mild Nausea Verified 09/18/23 19:19 [From Sulfamethoxazole-Trimethoprim] trimethoprim AdvReac Mild Nausea Verified 09/18/23 19:19 [From Sulfamethoxazole-Trimethoprim] Review of Systems Status of ROS: Reports: 10 or more systems reviewed and unremarkable except as noted in History and below [facility] Medical History (Updated 09/19/23 @ 11:39 by Lara Schulz MD) Hemiparesis ?G81.90 - Hemiplegia, unspecified affecting unspecified side (ICD-10) Fracture of right ankle, lateral malleolus ?S82.61XA - Displaced fracture of lateral malleolus of right fibula, initial encounter for closed fracture (ICD-10) Physician orders for life-sustaining treatment (POLST) form indicates patient wish for full code resuscitation status (06/25/18) ?Z78.9 - Other specified health status (ICD-10) Health care directive on file (07/17/09) ?Z78.9 - Other specified health status (ICD-10) Hyperlipidemia ?E78.5 - Hyperlipidemia, unspecified (ICD-10) RAJENDRA (generalized anxiety disorder) (2011) ?F41.1 - Generalized anxiety disorder (ICD-10) Major depressive disorder (2011) ?F32.9 - Major depressive disorder, single episode, unspecified (ICD-10) Chronic intractable headache (2009) ?R51.9 - Headache, unspecified (ICD-10) ?G89.29 - Other chronic pain (ICD-10) History of hemorrhagic stroke with residual hemiparesis (04/2009) ?I69.359 - Hemiplegia and hemiparesis following cerebral infarction affecting unspecified side (ICD-10) Osteoporosis (2012) ?M81.0 - Age-related osteoporosis without current pathological fracture (ICD- 10) History of pelvic fracture (2012) ?Z87.81 - Personal history of (healed) traumatic fracture (ICD-10) History of small bowel obstruction (02/2011) ?Z87.19 - Personal history of other diseases of the digestive system (ICD-10) Abscess of skin and subcutaneous tissue ?L02.91 - Cutaneous abscess, unspecified (ICD-10) Surgical History (Updated 09/19/23 @ 11:38 by Lara Schulz MD) S/P exploratory laparotomy (09/18/23) ?Z98.890 - Other specified postprocedural states (ICD-10) History of open reduction and internal fixation (ORIF) procedure (06/10/10) ?Z98.890 - Other specified postprocedural states (ICD-10) History of laparoscopic appendectomy (12/2010) ?Z90.49 - Acquired absence of other specified parts of digestive tract (ICD-10) History of craniotomy (04/2009) ?Z98.890 - Other specified postprocedural states (ICD-10) Family History Unknown Colon polyps Brother COPD (chronic obstructive pulmonary disease) Coronary artery disease Lung cancer Diabetes Social History Narrative: She lives at [facility]. She is relatively independent in transfers. 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 She walks in the hallway holding onto the railing every day. She has a remote history of minimal smoking. She does not drink alcohol. Code status is full. What is your current living situation?: I presently have a place to live Problems where you live: no known problems In the past 12 months, utilities in danger of being shut off: no In past 12 months, lack of transportation kept you from medical appts, meetings, work, or getting things needed for daily living: no In the past 12 mos, have been you worried that your food would run out before you had money to buy more?: never true In the past 12 mos, the food you bought just didn't last and you didn't have money to buy more?: never true Highest level of school completed/degree received: Bachelor's degree Smoking Status: Former smoker Do you use any of these nicotine containing products: None Second hand tobacco smoke exposure: No How often do you have a drink containing alcohol: never How often do you have six or more drinks on one occasion: Never AUDIT-C Alcohol total score: 0 Non-prescribed substance use: denies use Caffeine: No How often does anyone, including family, friends and others, physically hurt you : never How often does anyone, including family, friends and others, insult or talk down to you: never How often does anyone, including family, friends and others, threaten you with harm: never How often does anyone, including family, friends and others, scream or curse at you: never Little interest or pleasure in doing things: not at all Feeling down, depressed, or hopeless: not at all service: No Exam Narrative: Exam Narrative: Vital signs as noted above. In general, an alert, well-appearing patient. Head: Normocephalic, atraumatic. Eyes: Pupils are equal reactive. Extraocular movements are full. Conjunctivae are normal. ENT: Mucous membranes are moist. Throat is normal. Neck: Supple without lymphadenopathy. Heart: Regular rate and rhythm. No murmur or rub. Lungs: Clear bilaterally. No increased work of breathing, crackles or wheezes. Abdomen: Soft, not significantly distended. Diffuse tenderness to palpation with some voluntary guarding, no rebound or rigidity. Extremities: Well perfused. No edema. No calf tenderness. Pulses intact. Neurologic: Patient is alert and oriented to person and place. Speech is fluent. Face is symmetric. Chronic right-sided hemiparesis. Affect: Normal. Skin: Warm and dry. Well perfused. Const: Vital Signs, click to edit/add: Vital Signs - 24 hr 09/18/23 20:11 09/18/23 20:44 09/18/23 20:46 Temperature Pulse Rate Pulse Rate [Right Pulse Oximeter] 78 83 Respiratory Rate 18 Blood Pressure Blood Pressure [Ri ght Upper Arm] 172/103 H Pulse Oximetry 95 94 94 Oxygen Delivery Me thod Room Air Nasal Cannula Nasal Cannula Oxygen Flow Rate 2 09/19/23 00:00 09/19/23 00:05 09/19/23 00:10 Temperature 97.0 F L Pulse Rate 93 94 96 Pulse Rate [Right Pulse Oximeter] Respiratory Rate 18 16 18 Blood Pressure 145/95 H 147/86 H 136/64 Blood Pressure [Ri ght Upper Arm] Pulse Oximetry 97 97 97 Oxygen Delivery Me thod Nasal Cannula Nasal Cannula Nasal Cannula Oxygen Flow Rate 5 5 5 09/19/23 00:15 09/19/23 00:20 09/19/23 00:25 Temperature 98.0 F Pulse Rate 95 94 96 Pulse Rate [Right Pulse Oximeter] Respiratory Rate 18 17 19 Blood Pressure 141/79 H 135/76 132/77 Blood Pressure [Ri ght Upper Arm] Pulse Oximetry 97 94 94 Oxygen Delivery Me thod Nasal Cannula Nasal Cannula Room Air Oxygen Flow Rate 5 3 09/19/23 00:30 Temperature 98.5 F Pulse Rate 94 Pulse Rate [Right Pulse Oximeter] Respiratory Rate 18 Blood Pressure 138/79 Blood Pressure [Ri ght Upper Arm] Pulse Oximetry 94 Oxygen Delivery Me thod Room Air Oxygen Flow Rate Course Course ED Course: An IV was placed, she was initially given Zofran, L of normal saline as well as morphine 4 mg. She went on have labs and I ordered a CT of the abdomen to evaluate for diagnostic possibilities such as bowel obstruction, colitis, diverticulitis,, a UA was obtained, CBC showed a white blood cell count of 11.8, 90% neutrophils. Her lactate was 1.5, metabolic panel was unremarkable. CRP was less than 0.5, LFTs normal. Lipase was 54. UA does show 3+ ketones, positive nitrites and 5-10 white blood cells. Pain was improved after morphine, she continued to complain of nausea. She went on have CT scan which by my review look to show bowel obstruction, read as follows by Radiology:Findings: Examination is positive for small bowel obstruction with multiple fluid-filled bowel loops with air-fluid levels seen measuring just under 3 cm in the anterior mid abdomen and pelvis. Mesenteric venous congestion and moderate amount of stranding surrounding these bowel loops especially in the lower pelvis. Swirling of loops around some postsurgical changes around the cecum is seen which appears tethered towards the midline (see image 75, series 2, and image 38, series 4). No pneumatosis or portal venous gas. No mesenteric venous gas. Small amount of perihepatic fluid and small amount of fluid in the pelvis. Trace fluid between the affected bowel loops. The mucosal enhancement appears intact within the bowel loops. Non cirrhotic liver morphology. Patent portal and hepatic veins. The spleen is normal size. No suspicious incidental findings in the lung bases. Adrenal glands appear unremarkable. Kidneys enhance symmetrically without hydronephrosis. No suspicious pancreatic abnormality. The gallbladder appears unremarkable. The IVC and iliac veins are patent. Atherosclerotic changes within the abdominal aorta without abdominal aortic aneurysm. Femoral neck screw fixation. No aggressive appearing osseous lesion. Mild height loss of lower thoracic vertebral bodies. No obvious abnormality involving the uterus or adnexa. Impression: Distal small bowel obstruction which appears tethered and swirling around postoperative changes in the region of the cecum. Small amount of fluid between the bowel loops more inferiorly, with trace amount of fluid around the liver and in the pelvis are concerning but there is no definite pneumatosis or portal venous gas. Correlate with lactate, and exam to determine if there is ischemia. Recommend surgical consult. Repeat abdominal exam shows continued tenderness but certainly less tender than previously. No longer guarding. Case was discussed with Dr. Lynne, general surgery who is reviewed patient CT scan and we have discussed exam and lab findings. She recommends OR for exploratory laparotomy tonight. Patient is agreeable to this plan. I have ordered some Reglan to see if we can get her nausea settled down a bit more. She is also going to have 4 mg more of morphine IV. She did have an EKG which by my review showed a normal sinus rhythm, diffuse T-wave flattening, no acute ST segment changes. Sinus rhythm of 86 beats per minute. Vital Signs Vital signs: Initial Vital Signs Temperature 97.6 F 09/18/23 16:16 Temperature Source Temporal Artery Scan 09/18/23 16:16 Pulse Rate 87 09/18/23 16:16 Respiratory Rate 18 09/18/23 16:16 Blood Pressure 136/88 09/18/23 16:16 Blood Pressure Mean 104 09/18/23 16:16 Blood Pressure Position Sitting 09/18/23 16:16 Pulse Oximetry 93 09/18/23 16:16 Oxygen Delivery Method Room Air 09/18/23 16:16 Vital Signs Temperature 97.6 F 09/18/23 16:16 Pulse Rate 87 09/18/23 16:16 Respiratory Rate 18 09/18/23 16:16 Blood Pressure 136/88 09/18/23 16:16 Pulse Oximetry 93 09/18/23 16:16 Oxygen Delivery Method Room Air 09/18/23 16:16 Temperature 98.8 F 09/19/23 15:00 Pulse Rate 92 09/19/23 15:00 Respiratory Rate 18 09/19/23 15:00 Blood Pressure 141/83 H 09/19/23 15:00 Pulse Oximetry 94 09/19/23 15:00 Oxygen Delivery Method Room Air 09/19/23 15:00 Oxygen Flow Rate 2 09/19/23 03:30 Medications Administered Medications: Generic Name Dose Route Start Last Admin Trade Name Wilq PRN Reason Stop Dose Admin Baclofen 10 mg 09/19/23 09:00 09/19/23 10:19 Baclofen 10 Mg Tablet PO 10 mg BID CELE Administration Enoxaparin Sodium 40 mg 09/19/23 12:00 09/19/23 12:07 Enoxaparin 40 Mg/0.4 Ml Inj SUBCUT 40 mg Q24H CELE Administration Fluoxetine HCl 40 mg 09/19/23 09:00 09/19/23 10:18 Fluoxetine Hcl 20 Mg Capsule PO 40 mg DAILY CELE Administration Gabapentin 100 mg 09/19/23 09:00 09/19/23 14:16 Gabapentin 100 Mg Capsule PO 100 mg TID CELE Administration Hydromorphone HCl 0.1 - 0.5 mg 09/18/23 21:35 09/19/23 03:59 Hydromorphone 0.5 Mg/0.5 Ml Inj IVP 0.5 mg Q1H PRN Administration Pain Lactated Ringer's 1,000 mls @ 100 mls/hr 09/18/23 21:35 09/19/23 17:12 Lactated Ringers 1000 Ml IV 100 mls/hr .Q10H CELE Administration Omeprazole 20 mg 09/19/23 09:00 09/19/23 10:18 Omeprazole [address] PO 20 mg QAM CELE Administration Ondansetron HCl 4 - 8 mg 09/18/23 21:35 09/19/23 10:42 Ondansetron 2 Mg/Ml Inj IVP 4 mg Q8H PRN Administration Nausea And Vomiting Discontinued Medications Generic Name Dose Route Start Last Admin Trade Name Soledad PRN Reason Stop Dose Admin Hydromorphone HCl 0.5 mg 09/19/23 00:18 09/19/23 00:05 Hydromorphone 0.5 Mg/0.5 Ml Inj IVP 0.5 mg Q10M PRN Administration Sodium Chloride 1,000 mls @ 1,000 mls/hr 09/18/23 16:45 09/18/23 19:09 0.9 % Sodium Chloride 1000 Ml IV 09/18/23 17:44 Infused .Q1H CELE Infusion Metoclopramide HCl 10 mg/ 102 mls @ 306 mls/hr 09/18/23 20:21 09/19/23 07:21 Sodium Chloride IVPB 09/18/23 20:22 Infused ONCE ONE Infusion Piperacillin Sod/Tazobactam 100 mls @ 200 mls/hr 09/18/23 22:15 09/19/23 07:21 Sod 3.375 gm/ Sodium Chloride IVPB 09/18/23 22:44 Infused ONCE ONE Infusion Morphine Sulfate 4 mg 09/18/23 16:42 09/18/23 17:12 Morphine 4 Mg/Ml Inj IVP 09/18/23 16:43 4 mg ONCE ONE Administration Morphine Sulfate 4 mg 09/18/23 20:40 09/18/23 20:42 Morphine 4 Mg/Ml Inj IVP 09/18/23 20:41 4 mg ONCE ONE Administration Ondansetron HCl 4 mg 09/18/23 16:42 09/18/23 17:12 Ondansetron 2 Mg/Ml Inj IVP 09/18/23 16:43 4 mg ONCE ONE Administration Medical Decision Making Lab Data Labs: Lab Results 09/18/23 09/18/23 Range/Units 17:00 Unknown WBC 11.82 H (4.50-11.00) K/uL RBC 5.06 (4.00-5.20) m/uL Hgb 15.8 (12.0-16.0) gm/dL Hct 48.5 (33.0-51.0) % MCV 96 (80-100) fL MCH 31 (26-34) pg MCHC 33 (32-36) gm/dL RDW Coeff of Alex 12.7 (11.5-15.5) % Plt Count 305 (140-440) K/uL Neut % (Auto) 90.3 H (42.0-72.0) % Lymph % (Auto) 7.5 L (20-44) % [place] % (Auto) 1.9 (0.0-11.0) % Eos % (Auto) 0.0 (0.0-7.0) % Baso % (Auto) 0.0 (0.0-3.0) % Neut # (Auto) 10.70 H (1.7-7.0) K/uL Lymph # (Auto) 0.90 (0.90-2.90) K/uL [place] # (Auto) 0.20 (0.00-0.90) K/UL Eos # (Auto) 0.00 (0.00-0.50) K/uL Baso # (Auto) 0.00 (0.00-0.30) K/uL Abs Immat Gran (auto) 0.00 (0.00-0.30) K/uL Imm/Tot Granulo (auto) 0.3 % Sodium 142 (135-149) mmol/L Potassium 3.7 (3.6-5.1) mmol/L Chloride 110 (96-114) mmol/L Carbon Dioxide 22 (20-32) mmol/L Anion Gap 10 (7-15) mEq/L BUN 17 (7-30) mg/dL Creatinine 0.5 (0.5-1.5) mg/dL Estimated Creat Clear 48.30 Estimated GFR 100 ml/min Glucose 147 H (60-115) mg/dL Lactate 1.5 (0.5-1.9) mmol/L Calcium 9.6 (8.4-10.6) mg/dL Total Bilirubin 0.8 (0.1-1.5) mg/dL Direct Bilirubin 0.3 (0.0-0.5) mg/dL AST 27 (12-35) U/L ALT 24 (4-35) U/L Alkaline Phosphatase 122 (40-150) U/L C-Reactive Protein < 0.5 L (0.5-1.0) mg/dL Total Protein 8.9 H (6.0-8.3) g/dL Albumin 5.0 (3.3-5.0) g/dL Lipase 54 (23-300) U/L Urine Color Yellow (Yellow) Urine Appearance Cloudy A (Clear) Urine pH 5.5 (5.0-8.5) Ur Specific [place] >= 1.030 (1.000-1.030) Urine Protein Trace A (Negative) Urine Glucose (UA) Negative (Negative) Urine Ketones 3+ A (Negative) Urine Blood Negative (Negative) Urine Nitrite Positive A (Negative) Urine Bilirubin Negative (Negative) Urine Urobilinogen 0.2 (0.2-1.0) Ur Leukocyte Esterase Negative (Negative) Urine RBC 0-2 (0-2) Urine WBC 5-10 A (0-5) Ur Squamous Epith Cells Few (None-Few) Amorphous Sediment Few A (None) Urine Bacteria Many A (None) Urine Mucus Moderate A (None)
[2023-09-18 17:04] LABS: Lactate Sepsis w/Reflex* 1.5 mmol/L (0.5-1.9)
[2023-09-18 17:07] LABS: Hematocrit 48.5 % (33.0-51.0); Hemoglobin* 15.8 gm/dL (12.0-16.0); Immature Granulocytes Pct Auto 0.3 %; Lymphocytes Percent Auto 7.5 % (20-44); Mean Corpuscular HGB Conc 33 gm/dL (32-36); Mean Corpuscular Hemoglobin 31 pg (26-34); Mean Corpuscular Volume 96 fL (80-100); Monocytes Percent Auto 1.9 % (0.0-11.0); Neutrophils Percent Auto 90.3 % (42.0-72.0); Platelet Count* 305 K/uL (140-440); RDW Coefficient of Variation % 12.7 % (11.5-15.5); Red Blood Count 5.06 m/uL (4.00-5.20); White Blood Count* 11.82 K/uL (4.50-11.00)
[2023-09-18 17:10] LABS: Slide Review Reflex No
[2023-09-18] MEDS: ONDANSETRON 2 MG/ML inj 4 MG IVP (17:12)
[2023-09-18] MEDS: 0.9 % SODIUM CHLORIDE 1000 ml 1,000 ML IV (17:12)
[2023-09-18] MEDS: MORPHINE 4 MG/ML INJ IVP ×2 (17:12→20:42)
[2023-09-18 17:47] LABS: Chloride* 110 mmol/L (96-114)
[2023-09-18 17:48] LABS: Potassium* 3.7 mmol/L (3.6-5.1); Sodium* 142 mmol/L (135-149)
[2023-09-18 17:49] LABS: Creatinine* 0.5 mg/dL (0.5-1.5); Estimated Glomerular Filt Rate 100 ml/min
[2023-09-18 17:50] LABS: Alkaline Phosphatase* 122 U/L (40-150); Anion Gap 10 mEq/L (7-15); Aspartate Amino Transferase* 27 U/L (12-35); Bilirubin Direct* 0.3 mg/dL (0.0-0.5); Bilirubin Total* 0.8 mg/dL (0.1-1.5); Blood Urea Nitrogen* 17 mg/dL (7-30); Carbon Dioxide* 22 mmol/L (20-32); Lipase* 54 U/L (23-300); Total Protein* 8.9 g/dL (6.0-8.3)
[2023-09-18 17:51] LABS: Alanine Aminotransferase* 24 U/L (4-35); Calcium* 9.6 mg/dL (8.4-10.6); Glucose* 147 mg/dL (60-115)
[2023-09-18 18:02] LABS: C Reactive Protein* < 0.5 mg/dL (0.5-1.0)
[2023-09-18 18:17] VITALS: BP 127/66; RESP 18; O2SAT 95
[2023-09-18 18:57] LABS: Appearance Urine Cloudy (Clear); Bilirubin Urine Negative (Negative); Blood Urine Negative (Negative); Color Urine Yellow (Yellow); Glucose Urine Negative (Negative); Ketones Urine 3+ (Negative); Leukocyte Esterase Urine Negative (Negative); Nitrite Urine Positive (Negative); Protein Urine Trace (Negative); Specific Gravity Urine >= 1.030 (1.000-1.030); Urobilinogen Urine 0.2 (0.2-1.0); pH Urine 5.5 (5.0-8.5)
[2023-09-18 19:45] LABS: Amorphous Sediment Urine Few; Bacteria Urine Many; Mucus Urine Moderate; RBC Urine 0-2 (0-2); Squamous Epithelial Cell Urine Few (None-Few)
[2023-09-18 20:11] VITALS: BP 172/103; PULSE 78; O2SAT 95
[2023-09-18] MEDS: METOCLOPRAMIDE HCL 10 MG in 0.9 % SODIUM CHLORIDE 100 ml 100 ML 306 MG IVPB (20:39)
[2023-09-18 20:44] VITALS: O2SAT 94
[2023-09-18 20:46] VITALS: PULSE 83; RESP 18; O2SAT 94
--- OUTSIDE RECORDS SUMMARY | 2023-09-18 21:14 | XMS_ITS | Clinical Summary ---
Author Organization [employer] [facility] Address [place], [place] [address] Care Team Providers Care Flux Plant Operator Name Role Phone Daylin Rosales MD Primary Care Provider [phone] Stella Padron MD Unavailable [phone] Allergies Active Allergy Reactions Criticality Noted [...] 8.6-50 mg, (SENOKOT S) 8.6-50 mg tabletIndications:[facility] Take 3 tablets by mouth once [...] - 07/17/2023 11:59 PM CDT Hospital Encounter [facility] [address] [place] [address] Stella Padron MD 07/17/2023 10:45 AM CDT Procedure Only [facility] [address] [place] [address] [phone] Stella Padron MD Procedure (Botox) 07/17/2023 Travel 06/25/2023 Telephone [facility] [address] [place] [phone] Stella Padron MD Procedure from Last 3 [...] kg (185 lb) 05/10/2021 10:3 6 AM 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 Patient reported Height 170.2 cm (5' 7) 05/10/2021 10:3 6 AM 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 Patient reported Body Mass Index 28.98 05/10/2021 10:36 AM 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 Plan of Treatment Upcoming Encounters Date Type Department Care Team (Late st Contact Info) Description 10/23/2023 11:00 AM CDT Procedure Only [facility] [address] [place] [phone] Stella Padron MD [address] [place], [place] [phone] Health Maintenance Due Date Last Done Comments [...] Influenza for age 65+ 12/28/2023 Care Teams Flux Plant Operator Relationship Specialty Start Date End Date Daylin Rosales MD [address] [place], [place] [id number] PCP - General Internal Medicine 04/03/15 Stella Padron MD [facility] [place] [address] Physical Medicince Rehab Physical Medicine and Rehabilitation 4/25/19
--- NOTE | 2023-09-18 21:28 | PM.GSHP ---
History of Present Illness History of Present Illness Date Seen: 09/18/23 Chief complaint: Abdominal pain, vomiting Narrative: Shanti Hollins is a 73 year old female, paraplegic, presented to emergency room with abdominal pain and I was asked by Dr. Brewster to see in consultation. Patient states that her abdominal pain started at 10:30 a.m. of a sudden. She did not feel good after fiber that she usually eats to avoid constipation. She describes it as ?gassy?. She went on a walk to try and feel better but her pain was getting progressively worse. She then started vomiting. He had a small bowel movement but no gas since the abdominal pain started. In the emergency room she was found to have an elevated WBC of 11. Her CRP was less than 0.5. Abdominal CT was obtained that showed dilated loops of small bowel with some of the loops being decompressed. The radiologist described tethering of the small bowel loops in the middle of the abdomen adjacent to her prior appendectomy site. There was also a finding of moderate mesenteric edema. Off note, patient recently ?smashed? her right foot and has a compound fibular fracture on the right side. She can weight bear on that side and is okay to do independent transfers on the right leg. Review of Systems Narrative: General: no fevers HENT: no problems swallowing CV: no shortness of breath Resp: no cough GI: No nausea, vomiting, abdominal pain : no dysuria, no increased urinary frequency, no hematuria Skin: no new rashes Musculoskeletal: no back pain Neuro: no muscle weakness Psyche: no depression, no anxiety PFSH PFSH Medical History History of pelvic fracture (2012) ?Z87.81 - Personal history of (healed) traumatic fracture (ICD-10) History of small bowel obstruction (02/2011) ?Z87.19 - Personal history of other diseases of the digestive system (ICD-10) Abscess of skin and subcutaneous tissue ?L02.91 - Cutaneous abscess, unspecified (ICD-10) Surgical History History of open reduction and internal fixation (ORIF) procedure (06/10/10) ?Z98.890 - Other specified postprocedural states (ICD-10) History of laparoscopic appendectomy (12/2010) ?Z90.49 - Acquired absence of other specified parts of digestive tract (ICD-10) History of craniotomy (04/2009) ?Z98.890 - Other specified postprocedural states (ICD-10) Family History Unknown Colon polyps Brother COPD (chronic obstructive pulmonary disease) Coronary artery disease Lung cancer Diabetes Social History Narrative: She lives at [facility]. She is relatively independent in transfers. 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 She walks in the hallway holding onto the railing every day. She has a remote history of minimal smoking. She does not drink alcohol. Code status is full. What is your current living situation?: I presently have a place to live Problems where you live: no known problems In the past 12 months, utilities in danger of being shut off: no In past 12 months, lack of transportation kept you from medical appts, meetings, work, or getting things needed for daily living: no In the past 12 mos, have been you worried that your food would run out before you had money to buy more?: never true In the past 12 mos, the food you bought just didn't last and you didn't have money to buy more?: never true Highest level of school completed/degree received: Bachelor's degree Smoking Status: Former smoker What tobacco products do you use: cigarettes Smoking quit date/years: >15 years ago Do you use any of these nicotine containing products: None Second hand tobacco smoke exposure: No How often do you have a drink containing alcohol: never AUDIT-C Alcohol total score: 0 Non-prescribed substance use: denies use Caffeine: No How often does anyone, including family, friends and others, physically hurt you: never How often does anyone, including family, friends and others, insult or talk down to you: never How often does anyone, including family, friends and others, threaten you with harm: never How often does anyone, including family, friends and others, scream or curse at you: never Little interest or pleasure in doing things: not at all Feeling down, depressed, or hopeless: not at all service: No Meds Home Medications and Allergies Home Medications ?Medication ?Instructions ?Recorded ?Confirmed ?Type calcium-vitamin D3-vitamin K 500 1 tab PO BID 11/12/21 09/09/23 History mg-200 unit-40 mcg tablet acetaminophen 500 mg tablet 1,000 mg PO BID PRN fever or pain 08/01/22 09/09/23 History Allergies Allergy/AdvReac Type Severity Reaction Status Date / Time sulfamethoxazole AdvReac Mild Nausea Verified 09/18/23 19:19 [From Sulfamethoxazole-Trimethoprim] trimethoprim AdvReac Mild Nausea Verified 09/18/23 19:19 [From Sulfamethoxazole-Trimethoprim] Exam Narrative: Exam Narrative: General appearance: Alert, cooperative, and in no distress Pulmonary: Chest symmetric, lungs clear bilaterally Cardiovascular Heart: Regular rate and rhythm, S1, S2, no murmurs/rubs/gallops Gastrointestinal Abdominal: soft, not distended, not tender to percussion but diffusely tender to palpation especially in epigastrium. There is involuntary guarding in epigastrium. Neuro: The right arm is flaccid and positioned over the right thigh. Psychiatric: Alert, cooperative, normal affect. Const: Vital Signs, click to edit/add: Vital Signs - 24 hr 09/18/23 16:16 09/18/23 18:17 09/18/23 20:11 Temperature 97.6 F Pulse Rate [Right Pulse Oximeter] 87 78 Respiratory Rate 18 18 Blood Pressure [Ri ght Upper Arm] 136/88 127/66 172/103 H Pulse Oximetry 93 95 95 Oxygen Delivery Me thod Room Air Room Air Room Air Oxygen Flow Rate 09/18/23 20:44 09/18/23 20:46 Temperature Pulse Rate [Right Pulse Oximeter] 83 Respiratory Rate 18 Blood Pressure [Ri ght Upper Arm] Pulse Oximetry 94 94 Oxygen Delivery Me thod Nasal Cannula Nasal Cannula Oxygen Flow Rate 2 Results Results EKG: image reviewed Additional studies: EKG with regular rate and rhythm. Progress Note:A&P Assessment and plan (1) Small bowel obstruction: Status: Acute Assessment and Plan: 73-year-old female presents with abdominal pain and vomiting that is due to small-bowel obstruction concerning for an internal hernia. I discussed with the patient and her sister her CT findings and her laboratory findings. Her CT is concerning for possible internal hernia due to adhesions. I recommended to proceed with urgent exploratory laparotomy. The procedure was discussed in detail. The risks associated procedure including infection, bleeding, injury to intra-abdominal organs, possible small-bowel resection, and possible need for additional procedures were all discussed with the patient, and she agreed to proceed.
[2023-09-18] MEDS: LACTATED RINGERS 1000 ML 1,000 ML 100 ML IV ×2 (21:49→23:26)
[2023-09-18] MEDS: PIPERACILLIN/TAZOBACTAM 3.375 GM in 0.9 % SODIUM CHLORIDE Mini-bag 100 ML IVPB (22:09)
[2023-09-19] VITALS (26 sets, daily range): BP systolic 117–149; BP diastolic 64–95; PULSE 88–102; RESP 14–19; TEMP 36.1–37.4; O2SAT 90–97; BMI 27.4
[2023-09-19] MEDS: HYDROmorphone 0.5 mg/0.5 ml inj IVP ×4 (00:05→23:38)
--- NOTE | 2023-09-19 00:06 | PM.GSPRC ---
Operative Note Date of procedure: 09/19/23 Pre-op diagnosis: 1. Small-bowel obstruction concerning for internal hernia. Post-op diagnosis: 1. Closed loop obstruction due to adhesion. Type of Procedure: 1. Exploratory laparotomy. 2. Lysis of adhesions. Indications: 73-year-old female presented to emergency room with sudden onset of abdominal pain nausea and vomiting that started today in the morning. The pain was getting progressively worse and patient was brought to the emergency room by her sister. In the emergency room she was found to have an elevated WBC of 11. An abdominal CT was obtained that showed dilated loops of small bowel with tethering appearing adhesive band or small intestine in the mid abdomen concerning for an internal hernia. On clinical exam patient had tenderness to palpation throughout the abdomen with involuntary guarding in epigastrium. Given patient's clinical information and her clinical exam an internal hernia or closed loop obstruction was suspected, and exploratory laparotomy was recommended. The procedure was discussed in detail. The risks associated procedure including infection, bleeding, injury to intra-abdominal organs, the need for small-bowel resection, and the need for additional procedures were all discussed with the patient, and she agreed to proceed. Procedure Description: After discussing the risks and benefits of the procedure, the patient signed informed consent.? The operative site was marked and the patient was brought to the operating room and placed on the operating table in supine position.? Care was taken to pad the patient's pressure points.?? The patient was then intubated by anesthesia.??TAP blocks were administered by Anesthesia. Clement catheter was placed under sterile conditions. The operative site was then prepped and draped in the usual sterile fashion.? A time-out was then performed. Midline laparotomy incision was made with a scalpel. Subcutaneous fat was divided with cautery down to the anterior fascia. The anterior fascia was then grasped with Chris clamps and incised with Metzenbaum scissors. Posterior fascia and peritoneum were grasped with Honey clamps and incised with Metzenbaum scissors as well. Abdomen was entered. The incision was then extended superiorly and inferiorly for the length of the skin incision. The large Blair retractor was placed into the incision. Moderate amount of thin slightly bloody ascites was seen and suctioned out. A loop of dusky appearing maroon intestine was immediately identified. This was somewhat twisted and there was a very tight adhesive band spanning from proximal terminal ileum to the cecum that was creating the closed loop obstruction. This band was lysed and the bowel was carefully examined. The small intestine was congested and the mesentery of the terminal ileum for about 50 cm proximal to the ileocecal valve was edematous and somewhat ecchymotic. No additional adhesive bands were noted. We placed the small intestine into the abdomen and covered with towels and waited to assess perfusion. After waiting for over 1/2 hour, we assessed perfusion of the small intestine. Visually, majority of the affected terminal ileum has recovered with only 2 short areas that still had some maroon patchiness but were not necrotic. Using the indocyanine green( I-SPY) this affected segment had perfusion and the edematous mesentery also appeared perfused. Decision was made not to perform small bowel resection. The small intestine was then placed back into the abdomen and covered by omentum. The abdomen was irrigated with warm normal saline. The midline fascia was then closed with 2 running 0-0 Maxon sutures. Subcutaneous fat and dermis was reapproximated with interrupted 3-0 Vicryl sutures. The skin was closed with mayra. Sterile dressings were placed over the incision. Sterile dressings were then applied. ? The patient was then woken and transported to the recovery area in stable condition. ? The patient tolerated the procedure well. Findings: A tight adhesive band creating a closed loop obstruction. Edematous mesentery and small intestine improved after waiting. Perfusion was confirmed by I-SPY. NG tube was placed and its stomach position was confirmed intraoperatively. Anesthesia: GETA Surgeon: Walter Mathur MD Estimated blood loss (mL): 25 Condition: stable Disposition: PACU
--- NOTE | 2023-09-19 00:19 | P.ANES_ITS ---
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
--- NOTE | 2023-09-19 00:19 | W.ANESCHARGE ---
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
--- NOTE | 2023-09-19 00:20 | P.NB_ITS ---
Nerve Block Nerve Block Time Seen by Provider: 22:02 Date Seen: 09/18/23 Type of block requested by surgeon for post-operative analgesia: TAP Side: bilateral Time out performed: Yes Verification of patient name: Yes Verification of date of : Yes Name of person performing procedure: SAVANNAH Land Continuous monitoring Was continuous monitoring of O2 sat, B/P, monitoring analyst, recorded every 15 minutes?: Yes Procedure Checklist: sterile prep, needles and gloves Ultrasound guided. Images saved: Yes Medications given in 5ml increments after negative aspiration: Marcaine (30 ml total) %: 0.25 mL: 15 Needle gauge: 20 and Exparel (10 ml total) mL: 5 Needle gauge: 20 Patient tolerated procedure well: Yes Block Charges Block Charge (with Pro Fee): TAP Bilateral Use of Ultrasound Machine for Block: Yes- US Guidance/pain block
[2023-09-19] MEDS: LACTATED RINGERS 1000 ML 1,000 ML 100 ML IV ×2 (05:48→17:12)
--- NOTE | 2023-09-19 06:35 | PC.NURSE ---
ADMISSION/SHIFT NOTE: Pt admitted to med-surg from PACU at 0040. Pt very drowsy, arouses to name, but falls asleep quickly between cares. Abdominal incision with a dressing, CDI. Ice pack to op site. NG patent in the left nare, 150ml of pink output this shift. Clement patent with adequate amounts of clear & yellow output. Pt repositioned with a 2 assist, tolerates fairly, increased pain with movement. PRN Dilaudid given x1 with pt reporting good relief. Denies SOB, CP, and N/V. Initially requiring oxygen 2L PNC on arrival from PACU, weaned to room air.
--- NOTE | 2023-09-19 08:54 | PM.IMCN1 ---
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 She was found to have an SBO and had an exploratory laporotomy with lysis of adhesions overnight by Dr. Mathur. We are consulted for medical management. Pat c/o sore throat this morning from the NGT that is in place. Abdominal pain at incision site is tolerable. She saw Dr. Douglas 09/09/23 for R ankle fracture. He recommended nonoperative management and said she is safe to bear weight with transfers as tolerated. She noted that she had a lot of pain at first, but that has gotten better and she is able to put some weight on her right LE for transfers now. She had recently been working on strengthening her core, but with last night's surgery, her ability to transfer is affected. She uses a power chair, but also has a manual chair that she uses sometimes. Review of Systems Status of ROS: Reports: 10 or more systems reviewed and unremarkable except as noted in History and below [facility] Medical History (Updated 09/19/23 @ 11:39 by Lara Schulz MD) Hemiparesis ?G81.90 - Hemiplegia, unspecified affecting unspecified side (ICD-10) Fracture of right ankle, lateral malleolus ?S82.61XA - Displaced fracture of lateral malleolus of right fibula, initial encounter for closed fracture (ICD-10) Physician orders for life-sustaining treatment (POLST) form indicates patient wish for full code resuscitation status (06/25/18) ?Z78.9 - Other specified health status (ICD-10) Health care directive on file (07/17/09) ?Z78.9 - Other specified health status (ICD-10) Hyperlipidemia ?E78.5 - Hyperlipidemia, unspecified (ICD-10) RAJENDRA (generalized anxiety disorder) (2011) ?F41.1 - Generalized anxiety disorder (ICD-10) Major depressive disorder (2012) ?F32.9 - Major depressive disorder, single episode, unspecified (ICD-10) Chronic intractable headache (2009) ?R51.9 - Headache, unspecified (ICD-10) ?G89.29 - Other chronic pain (ICD-10) History of hemorrhagic stroke with residual hemiparesis (04/2009) ?I69.359 - Hemiplegia and hemiparesis following cerebral infarction affecting unspecified side (ICD-10) Osteoporosis (2012) ?M81.0 - Age-related osteoporosis without current pathological fracture (ICD-10) History of pelvic fracture (2012) ?Z87.81 - Personal history of (healed) traumatic fracture (ICD-10) History of small bowel obstruction (02/2011) ?Z87.19 - Personal history of other diseases of the digestive system (ICD-10) Abscess of skin and subcutaneous tissue ?L02.91 - Cutaneous abscess, unspecified (ICD-10) Surgical History (Updated 09/19/23 @ 11:38 by Lara Schulz MD) S/P exploratory laparotomy (09/18/23) ?Z98.890 - Other specified postprocedural states (ICD-10) History of open reduction and internal fixation (ORIF) procedure (06/10/10) ?Z98.890 - Other specified postprocedural states (ICD-10) History of laparoscopic appendectomy (12/2010) ?Z90.49 - Acquired absence of other specified parts of digestive tract (ICD-10) History of craniotomy (04/2009) ?Z98.890 - Other specified postprocedural states (ICD-10) Family History Unknown Colon polyps Brother COPD (chronic obstructive pulmonary disease) Coronary artery disease Lung cancer Diabetes Social History Narrative: She lives at [facility]. She is relatively independent in transfers. She gets assistant director of admissions is for a bath twice a week. She walks in the hallway holding onto the railing every day. She has a remote history of minimal smoking. She does not drink alcohol. Code status is full. What is your current living situation?: I presently have a place to live Problems where you live: no known problems In the past 12 months, utilities in danger of being shut off: no In past 12 months, lack of transportation kept you from medical appts, meetings, work, or getting things needed for daily living: no In the past 12 mos, have been you worried that your food would run out before you had money to buy more?: never true In the past 12 mos, the food you bought just didn't last and you didn't have money to buy more?: never true Highest level of school completed/degree received: Bachelor's degree Smoking Status: Former smoker Do you use any of these nicotine containing products: None Second hand tobacco smoke exposure: No How often do you have a drink containing alcohol: never How often do you have six or more drinks on one occasion: Never AUDIT-C Alcohol total score: 0 Non-prescribed substance use: denies use Caffeine: No How often does anyone, including family, friends and others, physically hurt you: never How often does anyone, including family, friends and others, insult or talk down to you: never How often does anyone, including family, friends and others, threaten you with harm: never How often does anyone, including family, friends and others, scream or curse at you: never Little interest or pleasure in doing things: not at all Feeling down, depressed, or hopeless: not at all service: No Meds Home Medications and Allergies Home Medications ?Medication ?Instructions ?Recorded ?Confirmed ?Type calcium carbonate 600 mg-vitamin 1 tab PO BID 09/19/23 09/19/23 History D3 5 mcg (200 unit) tablet (Calcium 600 + D(3)) clindamycin phosphate 1 % topical 1 applic topical HS 09/19/23 09/19/23 History gel simvastatin 20 mg tablet 20 mg PO HS 09/19/23 09/19/23 History Allergies Allergy/AdvReac Type Severity Reaction Status Date / Time sulfamethoxazole AdvReac Mild Nausea Verified 09/18/23 19:19 [From Sulfamethoxazole-Trimethoprim] trimethoprim AdvReac Mild Nausea Verified 09/18/23 19:19 [From Sulfamethoxazole-Trimethoprim] Exam Narrative: Exam Narrative: General: No acute distress. Awake alert oriented x3. HEENT: Normocephalic atraumatic, pupils equally round and reactive to light and accommodation. Oropharynx clear. Mucous membranes are dry. No cervical lymphadenopathy, thyromegaly or carotid bruits. No JVD. Cardiovascular: Regular rate and rhythm. No murmurs, gallops, or rubs. Chest: No increased work of breathing. Clear to auscultation bilaterally. No crackles or wheezes. Abdomen: Bandages are clean, dry, and intact. Extremities: Right lower extremity has brace in place. Trace right ankle edema. Skin: No jaundice, no pallor, no rashes. Neuro: Chronic right-sided hemiparesis. Right arm especially is spastic. Const: Vital Signs, click to edit/add: Vital Signs - 24 hr 09/18/23 16:16 09/18/23 18:17 09/18/23 20:11 Temperature 97.6 F Pulse Rate Pulse Rate [Left P ulse Oximeter] Pulse Rate [Right Pulse Oximeter] 87 78 Respiratory Rate 18 18 Blood Pressure Blood Pressure [Le ft Arm] Blood Pressure [Ri ght Upper Arm] 136/88 127/66 172/103 H Pulse Oximetry 93 95 95 Oxygen Delivery Me thod Room Air Room Air Room Air Oxygen Flow Rate 09/18/23 20:44 09/18/23 20:46 09/19/23 00:00 Temperature 97.0 F L Pulse Rate 93 Pulse Rate [Left P ulse Oximeter] Pulse Rate [Right Pulse Oximeter] 83 Respiratory Rate 18 18 Blood Pressure 145/95 H Blood Pressure [Le ft Arm] Blood Pressure [Ri ght Upper Arm] Pulse Oximetry 94 94 97 Oxygen Delivery Me thod Nasal Cannula Nasal Cannula Nasal Cannula Oxygen Flow Rate 2 5 09/19/23 00:05 09/19/23 00:10 09/19/23 00:15 Temperature 98.0 F Pulse Rate 94 96 95 Pulse Rate [Left P ulse Oximeter] Pulse Rate [Right Pulse Oximeter] Respiratory Rate 16 18 18 Blood Pressure 147/86 H 136/64 141/79 H Blood Pressure [Le ft Arm] Blood Pressure [Ri ght Upper Arm] Pulse Oximetry 97 97 97 Oxygen Delivery Me thod Nasal Cannula Nasal Cannula Nasal Cannula Oxygen Flow Rate 5 5 5 09/19/23 00:20 09/19/23 00:25 09/19/23 00:30 Temperature 98.5 F Pulse Rate 94 96 94 Pulse Rate [Left P ulse Oximeter] Pulse Rate [Right Pulse Oximeter] Respiratory Rate 17 19 18 Blood Pressure 135/76 132/77 138/79 Blood Pressure [Le ft Arm] Blood Pressure [Ri ght Upper Arm] Pulse Oximetry 94 94 94 Oxygen Delivery Me thod Nasal Cannula Room Air Room Air Oxygen Flow Rate 3 09/19/23 00:40 09/19/23 00:42 09/19/23 00:42 Temperature 97.9 F 97.9 F 97.9 F Pulse Rate 97 97 Pulse Rate [Left P ulse Oximeter] 97 Pulse Rate [Right Pulse Oximeter] Respiratory Rate 16 16 16 Blood Pressure 144/89 H 144/89 H Blood Pressure [Le ft Arm] 144/89 H Blood Pressure [Ri ght Upper Arm] Pulse Oximetry 91 91 91 Oxygen Delivery Me thod Room Air Nasal Cannula Nasal Cannula Oxygen Flow Rate 2 2 2 09/19/23 00:45 09/19/23 01:00 09/19/23 01:15 Temperature 97.9 F 97.8 F 98.1 F Pulse Rate 95 97 93 Pulse Rate [Left P ulse Oximeter] Pulse Rate [Right Pulse Oximeter] Respiratory Rate 14 14 16 Blood Pressure 149/89 H 136/90 H 133/84 Blood Pressure [Le ft Arm] Blood Pressure [Ri ght Upper Arm] Pulse Oximetry 92 93 93 Oxygen Delivery Me thod Nasal Cannula Nasal Cannula Nasal Cannula Oxygen Flow Rate 2 2 2 09/19/23 01:30 09/19/23 01:45 09/19/23 02:00 Temperature 98 F 98.1 F 98.3 F Pulse Rate 95 95 94 Pulse Rate [Left P ulse Oximeter] Pulse Rate [Right Pulse Oximeter] Respiratory Rate 16 14 14 Blood Pressure 132/80 127/80 132/80 Blood Pressure [Le ft Arm] Blood Pressure [Ri ght Upper Arm] Pulse Oximetry 93 91 92 Oxygen Delivery Me thod Nasal Cannula Nasal Cannula Nasal Cannula Oxygen Flow Rate 2 2 2 09/19/23 02:30 09/19/23 03:00 09/19/23 03:30 Temperature 98.1 F 99 F 99.1 F Pulse Rate 95 96 98 Pulse Rate [Left P ulse Oximeter] Pulse Rate [Right Pulse Oximeter] Respiratory Rate 14 16 16 Blood Pressure 122/80 125/78 129/76 Blood Pressure [Le ft Arm] Blood Pressure [Ri ght Upper Arm] Pulse Oximetry 92 92 93 Oxygen Delivery Me thod Nasal Cannula Nasal Cannula Nasal Cannula Oxygen Flow Rate 2 2 2 09/19/23 04:00 09/19/23 05:00 09/19/23 06:00 Temperature 99 F 99.1 F 99.2 F Pulse Rate 102 H 96 100 Pulse Rate [Left P ulse Oximeter] Pulse Rate [Right Pulse Oximeter] Respiratory Rate 16 18 16 Blood Pressure 130/88 117/75 122/75 Blood Pressure [Le ft Arm] Blood Pressure [Ri ght Upper Arm] Pulse Oximetry 90 90 91 Oxygen Delivery Me thod Room Air Room Air Room Air Oxygen Flow Rate 09/19/23 07:00 Temperature 99.4 F Pulse Rate 100 Pulse Rate [Left P ulse Oximeter] Pulse Rate [Right Pulse Oximeter] Respiratory Rate 14 Blood Pressure 131/78 Blood Pressure [Le ft Arm] Blood Pressure [Ri ght Upper Arm] Pulse Oximetry 92 Oxygen Delivery Me thod Room Air Oxygen Flow Rate Labs Labs: Short CBC 09/18/23 Range/Units 17:00 WBC 11.82 H (4.50-11.00) K/uL Hgb 15.8 (12.0-16.0) gm/dL Hct 48.5 (33.0-51.0) % Plt Count 305 (140-440) K/uL BMP 09/18/23 17:00 Sodium 142 Potassium 3.7 Chloride 110 Carbon Dioxide 22 BUN 17 Creatinine 0.5 Glucose 147 H Calcium 9.6 Liver Function 09/18/23 Range/Units 17:00 Total Bilirubin 0.8 (0.1-1.5) mg/dL Direct Bilirubin 0.3 (0.0-0.5) mg/dL AST 27 (12-35) U/L ALT 24 (4-35) U/L Alkaline Phosphatase 122 (40-150) U/L Albumin 5.0 (3.3-5.0) g/dL Urine 09/18/23 Range/Units Unknown Urine Color Yellow (Yellow) Urine Appearance Cloudy A (Clear) Urine pH 5.5 (5.0-8.5) Ur Specific [place] >= 1.030 (1.000-1.030) Urine Protein Trace A (Negative) Urine Glucose (UA) Negative (Negative) Procedure(s): CT abdomen pelvis w con Accession Number(s): [id number] cc: Daphney Brewster M.D.; Daylin Rosales M.D.~ For Patients: As a result of the Century Cures Act, medical imaging exams and procedure reports are released immediately into your electronic medical record. You may view this report before your referring provider. If you have questions, please contact your health care provider. Indication: Left abdominal pain, vomiting, history of bowel obstruction Comparison: None available. Technique: CT of the abdomen and pelvis with IV contrast. 83 mL Isovue 370 IV. Findings: Examination is positive for small bowel obstruction with multiple fluid-filled bowel loops with air-fluid levels seen measuring just under 3 cm in the anterior mid abdomen and pelvis. Mesenteric venous congestion and moderate amount of stranding surrounding these bowel loops especially in the lower pelvis. Swirling of loops around some postsurgical changes around the cecum is seen which appears tethered towards the midline (see image 75, series 2, and image 38, series 4). No pneumatosis or portal venous gas. No mesenteric venous gas. Small amount of perihepatic fluid and small amount of fluid in the pelvis. Trace fluid between the affected bowel loops. The mucosal enhancement appears intact within the bowel loops. Non cirrhotic liver morphology. Patent portal and hepatic veins. The spleen is normal size. No suspicious incidental findings in the lung bases. Adrenal glands appear unremarkable. Kidneys enhance symmetrically without hydronephrosis. No suspicious pancreatic abnormality. The gallbladder appears unremarkable. The IVC and iliac veins are patent. Atherosclerotic changes within the abdominal aorta without abdominal aortic aneurysm. Femoral neck screw fixation. No aggressive appearing osseous lesion. Mild height loss of lower thoracic vertebral bodies. No obvious abnormality involving the uterus or adnexa. Impression: Distal small bowel obstruction which appears tethered and swirling around postoperative changes in the region of the cecum. Small amount of fluid between the bowel loops more inferiorly, with trace amount of fluid around the liver and in the pelvis are concerning but there is no definite pneumatosis or portal venous gas. Correlate with lactate, and exam to determine if there is ischemia. Recommend surgical consult. Please note that all CT scans at this facility use dose modulation, iterative reconstruction, and/or weight-based dosing when appropriate to reduce radiation dose to as low as reasonably achievable. Dictated by Paco Montoya MD @ 09/18/2023 7:50:59 PM (Electronically Signed) Assessment and Plan Assessment and plan (1) S/P exploratory laparotomy: Problem comment: - 09/19/23 Dr. Kevan - Cares per surgery, routine post op cares - discuss when to start pharmacologic VTE prophylaxis with gen surgery - NGT in place to LIS. IVF are LR @100cc/hr Status: Acute (2) Small bowel obstruction: Problem comment: - now s/p exp lap. Status: Acute (3) Hemiparesis: Problem comment: spastic paresis, affecting dominant side, due to h/o stroke Status: Chronic (4) Fracture of right ankle, lateral malleolus: Problem comment: - closed treatment of a closed, acute right lateral malleolus fracture (DOI: 09/01/2023) - Saw Dr. Douglas (ortho) on 09/09/23: nonoperative management, safe to bear weight with transfers as tolerated; anything that produces a sharp pain should be regressed; f/u in ortho clinic in 2 months - Start PT and OT to assess and treat as movement and rehab are likely affected by abdominal surgery and overall level of debility. Patient may need rehab before returning to [facility]. Status: Acute Plan VTE prophylaxis: Low-dose nightly enoxaparin and SCDs.
[2023-09-19] MEDS: GABAPENTIN 100 MG CAPSULE PO ×3 (10:17→21:09)
[2023-09-19] MEDS: OMEPRAZOLE 20 MG CAPSULE DR PO (10:18)
[2023-09-19] MEDS: FLUOXETINE HCL 20 MG CAPSULE 40 MG PO (10:18)
[2023-09-19] MEDS: BACLOFEN 10 MG TABLET PO ×2 (10:19→21:09)
--- NOTE | 2023-09-19 10:20 | PM.GSPN ---
Subjective Subjective Date Seen: 09/19/23 Interval history: Patient is doing well postoperatively. She had some nausea but no vomiting. NG tube with minimal amount of clear brown fluid. Patient denies passing gas. Her abdominal pain is controlled with pain medication. Exam Narrative: Exam Narrative: Abdomen is soft, minimally distended, tender to palpation throughout the abdomen. Midline surgical incision is covered with clean and dry dressing. Const: Vital Signs, click to edit/add: Vital Signs - 24 hr 09/18/23 16:16 09/18/23 18:17 09/18/23 20:11 Temperature 97.6 F Pulse Rate Pulse Rate [Left P ulse Oximeter] Pulse Rate [Right Pulse Oximeter] 87 78 Respiratory Rate 18 18 Blood Pressure Blood Pressure [Le ft Arm] Blood Pressure [Ri ght Upper Arm] 136/88 127/66 172/103 H Pulse Oximetry 93 95 95 Oxygen Delivery Me thod Room Air Room Air Room Air Oxygen Flow Rate 09/18/23 20:44 09/18/23 20:46 09/19/23 00:00 Temperature 97.0 F L Pulse Rate 93 Pulse Rate [Left P ulse Oximeter] Pulse Rate [Right Pulse Oximeter] 83 Respiratory Rate 18 18 Blood Pressure 145/95 H Blood Pressure [Le ft Arm] Blood Pressure [Ri ght Upper Arm] Pulse Oximetry 94 94 97 Oxygen Delivery Me thod Nasal Cannula Nasal Cannula Nasal Cannula Oxygen Flow Rate 2 5 09/19/23 00:05 09/19/23 00:10 09/19/23 00:15 Temperature 98.0 F Pulse Rate 94 96 95 Pulse Rate [Left P ulse Oximeter] Pulse Rate [Right Pulse Oximeter] Respiratory Rate 16 18 18 Blood Pressure 147/86 H 136/64 141/79 H Blood Pressure [Le ft Arm] Blood Pressure [Ri ght Upper Arm] Pulse Oximetry 97 97 97 Oxygen Delivery Me thod Nasal Cannula Nasal Cannula Nasal Cannula Oxygen Flow Rate 5 5 5 09/19/23 00:20 09/19/23 00:25 09/19/23 00:30 Temperature 98.5 F Pulse Rate 94 96 94 Pulse Rate [Left P ulse Oximeter] Pulse Rate [Right Pulse Oximeter] Respiratory Rate 17 19 18 Blood Pressure 135/76 132/77 138/79 Blood Pressure [Le ft Arm] Blood Pressure [Ri ght Upper Arm] Pulse Oximetry 94 94 94 Oxygen Delivery Me thod Nasal Cannula Room Air Room Air Oxygen Flow Rate 3 09/19/23 00:40 09/19/23 00:42 09/19/23 00:42 Temperature 97.9 F 97.9 F 97.9 F Pulse Rate 97 97 Pulse Rate [Left P ulse Oximeter] 97 Pulse Rate [Right Pulse Oximeter] Respiratory Rate 16 16 16 Blood Pressure 144/89 H 144/89 H Blood Pressure [Le ft Arm] 144/89 H Blood Pressure [Ri ght Upper Arm] Pulse Oximetry 91 91 91 Oxygen Delivery Me thod Room Air Nasal Cannula Nasal Cannula Oxygen Flow Rate 2 2 2 09/19/23 00:45 09/19/23 01:00 09/19/23 01:15 Temperature 97.9 F 97.8 F 98.1 F Pulse Rate 95 97 93 Pulse Rate [Left P ulse Oximeter] Pulse Rate [Right Pulse Oximeter] Respiratory Rate 14 14 16 Blood Pressure 149/89 H 136/90 H 133/84 Blood Pressure [Le ft Arm] Blood Pressure [Ri ght Upper Arm] Pulse Oximetry 92 93 93 Oxygen Delivery Me thod Nasal Cannula Nasal Cannula Nasal Cannula Oxygen Flow Rate 2 2 2 09/19/23 01:30 09/19/23 01:45 09/19/23 02:00 Temperature 98 F 98.1 F 98.3 F Pulse Rate 95 95 94 Pulse Rate [Left P ulse Oximeter] Pulse Rate [Right Pulse Oximeter] Respiratory Rate 16 14 14 Blood Pressure 132/80 127/80 132/80 Blood Pressure [Le ft Arm] Blood Pressure [Ri ght Upper Arm] Pulse Oximetry 93 91 92 Oxygen Delivery Me thod Nasal Cannula Nasal Cannula Nasal Cannula Oxygen Flow Rate 2 2 2 09/19/23 02:30 09/19/23 03:00 09/19/23 03:30 Temperature 98.1 F 99 F 99.1 F Pulse Rate 95 96 98 Pulse Rate [Left P ulse Oximeter] Pulse Rate [Right Pulse Oximeter] Respiratory Rate 14 16 16 Blood Pressure 122/80 125/78 129/76 Blood Pressure [Le ft Arm] Blood Pressure [Ri ght Upper Arm] Pulse Oximetry 92 92 93 Oxygen Delivery Me thod Nasal Cannula Nasal Cannula Nasal Cannula Oxygen Flow Rate 2 2 2 09/19/23 04:00 09/19/23 05:00 09/19/23 06:00 Temperature 99 F 99.1 F 99.2 F Pulse Rate 102 H 96 100 Pulse Rate [Left P ulse Oximeter] Pulse Rate [Right Pulse Oximeter] Respiratory Rate 16 18 16 Blood Pressure 130/88 117/75 122/75 Blood Pressure [Le ft Arm] Blood Pressure [Ri ght Upper Arm] Pulse Oximetry 90 90 91 Oxygen Delivery Me thod Room Air Room Air Room Air Oxygen Flow Rate 09/19/23 07:00 Temperature 99.4 F Pulse Rate 100 Pulse Rate [Left P ulse Oximeter] Pulse Rate [Right Pulse Oximeter] Respiratory Rate 14 Blood Pressure 131/78 Blood Pressure [Le ft Arm] Blood Pressure [Ri ght Upper Arm] Pulse Oximetry 92 Oxygen Delivery Me thod Room Air Oxygen Flow Rate Progress Note:A&P Assessment and plan (1) S/P exploratory laparotomy: Status: Acute Assessment and Plan: 73-year-old female s/p exploratory laparotomy for closed loop obstruction POD 1. NG tube will remain in place on low intermittent suction. We will remove patient's Clement catheter. Will restart patient's home medications. She will work with Physical therapy and Occupational therapy on mobility. Patient is independent at home. Waiting for return of bowel function.
--- NOTE | 2023-09-19 10:28 | CRLHL7_ITS ---
For Patients: As a result of the Century Cures Act, medical imaging exams and procedure reports are released immediately into your electronic medical record. You may view this report before your referring provider. If you have questions, please contact your health care provider. Indication: Check NG tube placement Technique: AP view of the abdomen. Comparison: None. Findings: Enteric tube with tip in the distal stomach. Skin mayra overlie the upper abdomen. Nonobstructive bowel gas pattern. Possible lucency is seen superior to the liver beneath the diaphragm. Impression: 1. Enteric tube with tip in the distal stomach. 2. Possible lucency is seen superior to the liver beneath the diaphragm; pneumoperitoneum is difficult to exclude, which was not present on CT 09/18/2023. Consider correlation with physical examination and further evaluation with CT as clinically indicated if there is concern for free air. Dictated by Edward Harper MD @ 09/19/2023 11:53:01 AM (Electronically Signed)
[2023-09-19] MEDS: ONDANSETRON 2 MG/ML inj IVP (10:42)
[2023-09-19 11:09] LABS: Hematocrit 41.3 % (33.0-51.0); Hemoglobin* 13.7 gm/dL (12.0-16.0); Immature Granulocytes Pct Auto 0.2 %; Lymphocytes Percent Auto 8.4 % (20-44); Mean Corpuscular HGB Conc 33 gm/dL (32-36); Mean Corpuscular Hemoglobin 32 pg (26-34); Mean Corpuscular Volume 96 fL (80-100); Monocytes Percent Auto 5.5 % (0.0-11.0); Neutrophils Percent Auto 85.9 % (42.0-72.0); Platelet Count* 275 K/uL (140-440); Red Blood Count 4.29 m/uL (4.00-5.20); White Blood Count* 11.24 K/uL (4.50-11.00)
[2023-09-19 11:23] LABS: Chloride* 114 mmol/L (96-114); Slide Review Reflex No
[2023-09-19 11:24] LABS: Potassium* 3.6 mmol/L (3.6-5.1); Sodium* 141 mmol/L (135-149)
[2023-09-19 11:26] LABS: Creatinine* 0.5 mg/dL (0.5-1.5); Estimated Glomerular Filt Rate 100 ml/min
[2023-09-19 11:27] LABS: Anion Gap 4 mEq/L (7-15); Blood Urea Nitrogen* 11 mg/dL (7-30); Calcium* 8.1 mg/dL (8.4-10.6); Carbon Dioxide* 23 mmol/L (20-32); Glucose* 134 mg/dL (60-115)
[2023-09-19] MEDS: ENOXAPARIN 40 MG/0.4 ML INJ SUBCUT (12:07)
--- NOTE | 2023-09-19 13:26 | PC.NURSE ---
End of Shift Note: Patient is alert and orientated. She did get up to the chair for several hours and then PT used the lucas steady and she went back to bed easier that when she got up. Did a x-ray this am to check placement of her NG as was not comfortable that it was in the right place as her nose securement device came loose. After x-ray did give her medications through her NG tube. Complains of the NG tube being in place but due to history of stroke she is worried about doing lidcaine spray or anything as not sure how it will effect her swallowing. Will continue to monitor until next shift arrives.
--- NOTE | 2023-09-19 14:33 | REH.OT ---
OT: New orders received, attempted x2, initially had just returned to bed with PT then with other discipline. Noted family bringing in pt's manual w/c and may benefit from modifying set up of room to simulate transfers in apartment with pt getting OOB to L side. Will follow to assess and aid in d/c recommendations.
--- NOTE | 2023-09-19 15:55 | PC.SOCIAL ---
Discharge planning: Called to [facility] where pt lives and spoke with nurse Wasserman about plan at discharge. Lisy states that if pt is ready for discharge on Friday, updated information on her needs, including MD note, RN notes, PT/OT notes and medication list should be faxed to nurse Raygoza (phone [phone], fax [phone]). Idalmis will assess and make a decision on whether she needs to come for a face to face assessment or if pt can just return to [facility]. As social work is not working on Friday, nursing will contact [facility] nurse on Friday with this information if pt is ready for discharge.
--- NOTE | 2023-09-19 19:33 | PC.NURSE ---
Pt up to BR using Maria Alejandra Ashby. Pt anxious with movements and new situations. Prior explanation of plan helps pt process information and ease anxiety. Pain in abdomen with movement, denies need for PRN meds. Complains of pain in throat due to NG tube. Bowel sounds present, pt denies Flatus.
[2023-09-20] VITALS (7 sets, daily range): BP systolic 134–153; BP diastolic 79–91; PULSE 79–90; RESP 16–20; TEMP 36.6–37.3; O2SAT 90–94
[2023-09-20] MEDS: LACTATED RINGERS 1000 ML 1,000 ML 100 ML IV ×2 (02:38→15:06)
--- NOTE | 2023-09-20 04:38 | PC.NURSE ---
Shift note: Pt has been in bed throughout the shift. Pain has been rated between 3 and 5. PRN Deluded given 2x. Pt is A/O. Pt is incontinent with urine. Hypoactive bowel sound. Pt has not pass gas. Dressing appeared clean and dry. NG tube is at 65 cm, suction intermittently at low pressure with brownish gastric content. Turn and reposition upon request.
--- NOTE | 2023-09-20 09:12 | PM.GSPN ---
Subjective Subjective Date Seen: 09/20/23 Interval history: Shanti had a rough night yesterday because she was not able to cough easily. She states that her cough reflex is not normal after her stroke. Her abdominal pain is controlled. She denies passing gas. She sat in a chair yesterday. Clement catheter was removed and she is incontinent of urine. NG tube is bothering her lot. It put out only 150 mL yesterday and 150 mL since midnight. Exam Narrative: Exam Narrative: Abdomen is soft, not distended, not tender to percussion but tender to palpation throughout the abdomen. Surgical dressing was removed and incision is clean and dry. There was no surrounding erythema. Const: Vital Signs, click to edit/add: Vital Signs - 24 hr 09/19/23 11:00 09/19/23 15:00 09/19/23 15:00 Temperature 98.5 F 98.8 F Pulse Rate [Left P ulse Oximeter] 96 92 92 Respiratory Rate 18 18 18 Blood Pressure [Le ft Arm] 136/78 141/83 H Pulse Oximetry 92 94 Oxygen Delivery Me thod Room Air Room Air Oxygen Flow Rate 09/19/23 19:00 09/19/23 23:00 09/19/23 23:00 Temperature 99.1 F 98.7 F Pulse Rate [Left P ulse Oximeter] 91 88 91 Respiratory Rate 18 18 18 Blood Pressure [Le ft Arm] 142/82 H 135/82 Pulse Oximetry 91 91 Oxygen Delivery Me thod Room Air Room Air Oxygen Flow Rate 2 09/20/23 02:02 Temperature 98.4 F Pulse Rate [Left P ulse Oximeter] 90 Respiratory Rate 18 Blood Pressure [Le ft Arm] 134/80 Pulse Oximetry 90 Oxygen Delivery Me thod Room Air Oxygen Flow Rate Progress Note:A&P Assessment and plan (1) S/P exploratory laparotomy: Status: Acute Assessment and Plan: 73-year-old female s/p exploratory laparotomy and lysis of adhesions POD 2. I discussed with the patient that we are waiting for return of bowel function. If patient's NG continues to put out minimal amount, we may remove it tomorrow because it is bothersome to the patient. Patient needs to be out of bed as much as possible. She is on DVT prophylaxis.
[2023-09-20] MEDS: FLUOXETINE HCL 20 MG CAPSULE 40 MG PO (10:00)
[2023-09-20] MEDS: GABAPENTIN 100 MG CAPSULE PO ×3 (10:00→20:42)
[2023-09-20] MEDS: BACLOFEN 10 MG TABLET PO ×2 (10:00→20:42)
[2023-09-20] MEDS: OMEPRAZOLE 20 MG CAPSULE DR PO (10:00)
[2023-09-20 10:03] LABS: Albumin* 3.8 g/dL (3.3-5.0); Chloride* 109 mmol/L (96-114); Potassium* 3.4 mmol/L (3.6-5.1); Sodium* 138 mmol/L (135-149)
[2023-09-20 10:05] LABS: Anion Gap 3 mEq/L (7-15); Aspartate Amino Transferase* 29 U/L (12-35); Carbon Dioxide* 26 mmol/L (20-32); Creatinine* 0.4 mg/dL (0.5-1.5); Estimated Glomerular Filt Rate 106 ml/min
[2023-09-20 10:06] LABS: Alanine Aminotransferase* 18 U/L (4-35); Alkaline Phosphatase* 92 U/L (40-150); Blood Urea Nitrogen* 7 mg/dL (7-30); Glucose* 98 mg/dL (60-115); Total Protein* 7.1 g/dL (6.0-8.3)
[2023-09-20] MEDS: ONDANSETRON 2 MG/ML inj IVP (13:22)
[2023-09-20] MEDS: ENOXAPARIN 40 MG/0.4 ML INJ SUBCUT (13:24)
--- NOTE | 2023-09-20 13:46 | PM.IMPN1 ---
Progress Note: A&P Assessment and plan (1) S/P exploratory laparotomy: Problem details: - 09/19/23 Dr. Mathur. Lysis of adhesions for closed loop obstruction. No bowel resection. Status: Acute (2) Small bowel obstruction: Problem details: - now s/p exp lap. Day 2. Coordinate with General surgery regarding NG suctioning and advancing diet. Status: Acute (3) Hemiparesis: Problem details: spastic paresis, affecting dominant side, due to h/o stroke. Abdominal surgery is affecting her ability to transfer. PT and OT to work towards discharge back to [facility] Status: Chronic (4) Fracture of right ankle, lateral malleolus: Problem details: Avulsion facture of lateral malleolus of right ankle. Weight-bearing as tolerated. Has AFO for old stroke on that side. Status: Acute (5) RAJENDRA (generalized anxiety disorder): Problem details: Fluoxetine started outside 11/06 Status: Chronic (6) Discharge planning issues: Problem details: Prior to admission patient was functioning fairly well at [facility]. Goal is to return there. She will need to regain her ability to transfer independently to achieve this goal. Still having quite a bit of abdominal pain and core weakness with transfers. Status: Acute Plan Continue in hospital for postoperative care including NG suctioning, IV fluids. Continue therapies. Time Spent With Patient Total time spent: Total time spent today is 50 minutes, 30 minutes in coordination of care discussing with patient family and other providers management of postoperative care in the context of right hemiparesis from stroke. 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 She was found to have an SBO and had an exploratory laporotomy with lysis of adhesions at the time of admission by Dr. Mathur. Operative findings include a closed loop small-bowel obstruction secondary to adhesion. She had lysis of adhesions without bowel resection. Postoperatively she has had an NG tube in place. She reports discomfort from the NG tube, abdominal pain with any movement or coughing. She has not had dyspnea or fever. She has not yet passed gas. Exam Narrative: Exam Narrative: She is alert and appears in no distress. Speech is normal. Respirations are clear to auscultation. Cardiovascular: S1, S2, regular rate and rhythm. Abdomen with bowel sounds present. Laparotomy incision is clean and dry. Minimal bruising around the incision. No erythema. No drainage. She has diffuse abdominal tenderness consistent with her postoperative status. External genitalia normal. Extremities without edema. Chronic right hemiparesis and rigidity from stroke noted. Const: Vital Signs, click to edit/add: Vital Signs - 24 hr 09/19/23 15:00 09/19/23 15:00 09/19/23 19:00 Temperature 98.8 F 99.1 F Pulse Rate [Left P ulse Oximeter] 92 92 91 Respiratory Rate 18 18 18 Blood Pressure [Le ft Arm] 141/83 H 142/82 H Pulse Oximetry 94 91 Oxygen Delivery Me thod Room Air Room Air Oxygen Flow Rate 2 09/19/23 23:00 09/19/23 23:00 09/20/23 02:02 Temperature 98.7 F 98.4 F Pulse Rate [Left P ulse Oximeter] 88 91 90 Respiratory Rate 18 18 18 Blood Pressure [Le ft Arm] 135/82 134/80 Pulse Oximetry 91 90 Oxygen Delivery Me thod Room Air Room Air Oxygen Flow Rate 09/20/23 07:00 09/20/23 09:00 09/20/23 11:00 Temperature 98.4 F 98.2 F Pulse Rate [Left P ulse Oximeter] 90 86 87 Respiratory Rate 16 18 18 Blood Pressure [Le ft Arm] 153/91 H 147/88 H Pulse Oximetry 90 93 Oxygen Delivery Me thod Room Air Room Air Oxygen Flow Rate Documenting provider has reviewed patient's vital signs: yes Labs Labs: Laboratory Results - last 24 hr 09/20/23 09:36 Sodium 138 Potassium 3.4 L Chloride 109 Carbon Dioxide 26 Anion Gap 3 L BUN 7 Creatinine 0.4 L Estimated Creat Clear 48.30 Estimated GFR 106 Glucose 98 Calcium 8.0 L Total Bilirubin 1.0 AST 29 ALT 18 Alkaline Phosphatase 92 Total Protein 7.1 Albumin 3.8
[2023-09-20] MEDS: POTASSIUM CHLORIDE 10 MEQ/100 ML PIGGYBACK 100 MEQ IVPB ×2 (19:25→20:42)
--- NOTE | 2023-09-20 19:26 | PC.NURSE ---
Pt up in chair, using Maria Alejandra Steady to bedside commode. Denies pain at rest, c/o pain with movement, denies need for medication intervention. Slight nausea after morning pills, with NG clamp. Zofran given per MAR with relief. Bowels active, pt denies flatus but states I think I might have a BM, but tried twice with no success.
[2023-09-21 00:30] VITALS: BP 147/84; PULSE 76; PULSE 81; RESP 18; TEMP 36.6; O2SAT 95
[2023-09-21 03:00] VITALS: BP 154/95; PULSE 84; RESP 20; TEMP 37; O2SAT 91
[2023-09-21] MEDS: LACTATED RINGERS 1000 ML 1,000 ML 100 ML IV (03:13)
--- NOTE | 2023-09-21 05:48 | PC.NURSE ---
Shift note: Pt's pain is minimal, increases to about 5 with activity or reposition. Incision site appeared clean and dry, no erythema or swelling. Incontinent with bladder. Pt had hypoactive bowel sound. Pt has not pass gas yet. Continue to have right sided paralysis. NG tube set to low intermittent suction.
[2023-09-21 06:41] LABS: Basophils Absolute Auto 0.01 K/uL (0.00-0.30); Basophils Percent Auto 0.1 % (0.0-3.0); Eosinophils Absolute Auto 0.04 K/uL (0.00-0.50); Eosinophils Percent Auto 0.5 % (0.0-7.0); Hematocrit 39.1 % (33.0-51.0); Hemoglobin* 12.8 gm/dL (12.0-16.0); Immature Granulocytes Abs Auto 0.07 K/uL (0.00-0.30); Lymphocytes Absolute Auto 1.99 K/uL (0.90-2.90); Lymphocytes Percent Auto 27.2 % (20-44); Mean Corpuscular HGB Conc 33 gm/dL (32-36); Mean Corpuscular Hemoglobin 32 pg (26-34); Mean Corpuscular Volume 97 fL (80-100); Monocytes Percent Auto 6.6 % (0.0-11.0); Neutrophils Absolute Auto 4.73 K/uL (1.7-7.0); Neutrophils Percent Auto 64.6 % (42.0-72.0); Platelet Count* 233 K/uL (140-440); RDW Coefficient of Variation % 12.5 % (11.5-15.5); Red Blood Count 4.04 m/uL (4.00-5.20); White Blood Count* 7.32 K/uL (4.50-11.00)
[2023-09-21 06:45] LABS: Slide Review Reflex No
[2023-09-21 06:56] LABS: Chloride* 110 mmol/L (96-114); Sodium* 138 mmol/L (135-149)
[2023-09-21 06:57] LABS: Potassium* 3.4 mmol/L (3.6-5.1)
[2023-09-21 06:59] LABS: Anion Gap 6 mEq/L (7-15); Carbon Dioxide* 22 mmol/L (20-32); Creatinine* 0.4 mg/dL (0.5-1.5); Estimated Glomerular Filt Rate 106 ml/min
[2023-09-21 07:00] LABS: Blood Urea Nitrogen* 6 mg/dL (7-30); Calcium* 8.1 mg/dL (8.4-10.6); Glucose* 77 mg/dL (60-115); Magnesium* 2.4 mg/dL (1.5-2.6)
[2023-09-21 07:20] VITALS: BP 140/98; PULSE 86; RESP 16; TEMP 37.1; O2SAT 91
--- NOTE | 2023-09-21 08:01 | PM.GSPN ---
Subjective Subjective Date Seen: 09/21/23 Interval history: Patient is improving postoperatively. Her pain is improving although she still complains of abdominal pain worse with movement. Patient slept better last night. She denies passing gas. The NG tube is bothering her a lot. Patient has a baseline impaired cough due to her stroke. She was in the chair for majority of the day. Exam Narrative: Exam Narrative: Abdomen is soft, not distended, tender to palpation to the right of surgical incision. Midline laparotomy incision is with intact mayra. There is some surrounding resolving ecchymosis around the surgical incision but no surrounding erythema. Const: Vital Signs, click to edit/add: Vital Signs - 24 hr 09/20/23 09:00 09/20/23 11:00 09/20/23 15:00 Temperature 98.2 F Pulse Rate [Left P ulse Oximeter] 86 87 85 Respiratory Rate 18 18 18 Blood Pressure [Le ft Arm] 147/88 H Pulse Oximetry 93 Oxygen Delivery Me thod Room Air 09/20/23 15:00 09/20/23 19:00 09/20/23 23:00 Temperature 97.9 F 99.1 F Pulse Rate [Left P ulse Oximeter] 89 89 79 Respiratory Rate 20 20 20 Blood Pressure [Le ft Arm] 149/89 H Pulse Oximetry 94 93 Oxygen Delivery Me thod Room Air Room Air 09/20/23 23:00 09/21/23 03:00 Temperature 98.7 F 98.6 F Pulse Rate [Left P ulse Oximeter] 79 84 Respiratory Rate 20 20 Blood Pressure [Le ft Arm] 144/79 H 154/95 H Pulse Oximetry 93 91 Oxygen Delivery Me thod Room Air Room Air Progress Note:A&P Assessment and plan (1) S/P exploratory laparotomy: Status: Acute Plan 73-year-old female s/p exploratory laparotomy with lysis of adhesions POD 2. Will remove patient's NG tube due to discomfort and her impaired cough reflex. Will still continue with NPO and bowel rest until return of bowel function.
[2023-09-21] MEDS: FLUOXETINE HCL 20 MG CAPSULE 40 MG PO (08:14)
[2023-09-21] MEDS: GABAPENTIN 100 MG CAPSULE PO ×3 (08:14→21:04)
[2023-09-21] MEDS: BACLOFEN 10 MG TABLET PO ×2 (08:14→21:04)
[2023-09-21] MEDS: OMEPRAZOLE 20 MG CAPSULE DR PO (08:14)
[2023-09-21] MEDS: 5 % DEX/0.9 SOD CHL+KCL 20 mEq 1,000 ML 100 ML IV (12:11)
[2023-09-21] MEDS: POTASSIUM CHLORIDE 10 MEQ/100 ML PIGGYBACK 100 MEQ IVPB (12:11)
--- NOTE | 2023-09-21 12:13 | PM.IMPN1 ---
Progress Note: A&P Assessment and plan (1) S/P exploratory laparotomy: Problem details: - 09/19/23 Dr. Mathur. Lysis of adhesions for closed loop obstruction. No bowel resection. Anticipate slow return of bowel function due to mesenteric edema. Status: Acute (2) Small bowel obstruction: Problem details: - now s/p exp lap. Day 2. Remove NG tube today. Status: Acute (3) Hemiparesis: Problem details: spastic paresis, affecting dominant side, due to h/o stroke. Abdominal surgery is affecting her ability to transfer. PT and OT to work towards discharge back to [facility]. She reports weight-bearing is much better today Status: Chronic (4) Fracture of right ankle, lateral malleolus: Problem details: Avulsion facture of lateral malleolus of right ankle. Weight-bearing as tolerated. Has AFO for old stroke on that side. Status: Acute (5) RAJENDRA (generalized anxiety disorder): Problem details: Fluoxetine started outside 11/06 Status: Chronic (6) Discharge planning issues: Problem details: Prior to admission patient was functioning fairly well at [facility]. Goal is to return there. She will need to regain her ability to transfer independently to achieve this goal. Still having quite a bit of abdominal pain and core weakness with transfers. Status: Acute Plan Continue in-hospital for monitoring for return of bowel function. Manage fluid and electrolytes. Ongoing therapy to return to independent living. 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 She was found to have an SBO and had an exploratory laporotomy with lysis of adhesions at the time of admission by Dr. Mathur. Operative findings include a closed loop small-bowel obstruction secondary to adhesion. She had lysis of adhesions without bowel resection. Prominent mesenteric edema noted. Postoperatively she has had an NG tube in place. She reports discomfort from the NG tube, abdominal pain with any movement or coughing. She has not had dyspnea or fever. She has not yet passed gas. Exam Narrative: Exam Narrative: She is alert and appears in no distress. Mood and affect are brighter today. Respirations are clear to auscultation. Cardiovascular: S1, S2, regular rate and rhythm. No murmur gallop or rub. Abdomen: Bowel sounds are present but diminished. Abdomen is soft with moderate mid abdominal tenderness, near the laparotomy incision. Incision is clean and dry with mild bruising around it but no erythema or drainage. Extremities without edema. Const: Vital Signs, click to edit/add: Vital Signs - 24 hr 09/20/23 15:00 09/20/23 15:00 09/20/23 19:00 Temperature 97.9 F 99.1 F Pulse Rate [Left P ulse Oximeter] 85 89 89 Respiratory Rate 18 20 20 Blood Pressure [Le ft Arm] 149/89 H Pulse Oximetry 94 93 Oxygen Delivery Me thod Room Air Room Air 09/20/23 23:00 09/20/23 23:00 09/21/23 03:00 Temperature 98.7 F 98.6 F Pulse Rate [Left P ulse Oximeter] 79 79 84 Respiratory Rate 20 20 20 Blood Pressure [Le ft Arm] 144/79 H 154/95 H Pulse Oximetry 93 91 Oxygen Delivery Me thod Room Air Room Air 09/21/23 07:20 09/21/23 07:20 Temperature 98.7 F Pulse Rate [Left P ulse Oximeter] 86 86 Respiratory Rate 16 16 Blood Pressure [Le ft Arm] 140/98 H Pulse Oximetry 91 Oxygen Delivery Me thod Room Air Documenting provider has reviewed patient's vital signs: yes Labs Labs: Laboratory Results - last 24 hr 09/21/23 05:55 WBC 7.32 RBC 4.04 Hgb 12.8 Hct 39.1 MCV 97 MCH 32 MCHC 33 RDW Coeff of Alex 12.5 Plt Count 233 Neut % (Auto) 64.6 Lymph % (Auto) 27.2 Parmer % (Auto) 6.6 Eos % (Auto) 0.5 Baso % (Auto) 0.1 Neut # (Auto) 4.73 Lymph # (Auto) 1.99 Parmer # (Auto) 0.50 Eos # (Auto) 0.04 Baso # (Auto) 0.01 Abs Immat Gran (auto) 0.07 Imm/Tot Granulo (auto) 1.0 Sodium 138 Potassium 3.4 L Chloride 110 Carbon Dioxide 22 Anion Gap 6 L BUN 6 L Creatinine 0.4 L Estimated Creat Clear 48.30 Estimated GFR 106 Glucose 77 Calcium 8.1 L Magnesium 2.4
[2023-09-21] MEDS: ENOXAPARIN 40 MG/0.4 ML INJ SUBCUT (12:22)
[2023-09-21 12:30] VITALS: PULSE 88; RESP 18; TEMP 36.6; O2SAT 91
[2023-09-21 15:30] VITALS: BP 148/89; PULSE 81; RESP 18; TEMP 37.2; O2SAT 95
--- NOTE | 2023-09-21 18:10 | PC.NURSE ---
Pt cooperative, pleasant, and less anxious today. Able to stand to Mame Steady with less assistance today than yesterday. Per pt I feel so much better and stronger today. Up in pt's own wheelchair after therapy. NG pulled, denies n/v entire day. Flatus noted in late afternoon hours per pt.
[2023-09-21 19:00] VITALS: BP 140/84; PULSE 81; RESP 18; TEMP 37; O2SAT 95
[2023-09-22] VITALS (7 sets, daily range): BP systolic 135–167; BP diastolic 84–99; PULSE 73–79; RESP 16–18; TEMP 36.5–36.9; O2SAT 93–96
[2023-09-22] MEDS: HYDROmorphone 0.5 mg/0.5 ml inj IVP (04:22)
[2023-09-22 06:20] LABS: Basophils Absolute Auto 0.01 K/uL (0.00-0.30); Basophils Percent Auto 0.2 % (0.0-3.0); Eosinophils Absolute Auto 0.05 K/uL (0.00-0.50); Eosinophils Percent Auto 0.9 % (0.0-7.0); Hemoglobin* 13.1 gm/dL (12.0-16.0); Immature Granulocytes Abs Auto 0.04 K/uL (0.00-0.30); Immature Granulocytes Pct Auto 0.8 %; Lymphocytes Absolute Auto 1.38 K/uL (0.90-2.90); Lymphocytes Percent Auto 26.2 % (20-44); Mean Corpuscular HGB Conc 34 gm/dL (32-36); Mean Corpuscular Hemoglobin 32 pg (26-34); Mean Corpuscular Volume 95 fL (80-100); Neutrophils Absolute Auto 3.37 K/uL (1.7-7.0); Neutrophils Percent Auto 63.9 % (42.0-72.0); Platelet Count* 253 K/uL (140-440); RDW Coefficient of Variation % 12.4 % (11.5-15.5); Red Blood Count 4.09 m/uL (4.00-5.20); White Blood Count* 5.27 K/uL (4.50-11.00)
[2023-09-22 06:22] LABS: Slide Review Reflex No
[2023-09-22 06:32] LABS: Chloride* 110 mmol/L (96-114); Potassium* 3.3 mmol/L (3.6-5.1); Sodium* 139 mmol/L (135-149)
[2023-09-22 06:35] LABS: Anion Gap 7 mEq/L (7-15); Blood Urea Nitrogen* 7 mg/dL (7-30); Carbon Dioxide* 22 mmol/L (20-32); Creatinine* 0.4 mg/dL (0.5-1.5); Estimated Glomerular Filt Rate 106 ml/min; Glucose* 97 mg/dL (60-115)
[2023-09-22 06:36] LABS: Calcium* 8.3 mg/dL (8.4-10.6)
--- NOTE | 2023-09-22 06:48 | PC.NURSE ---
PATIENT INCONTINENT OF URINE BUT UP WITH A2 AND KATT STEADY TO BEDSIDE COMMODE AND VOIDED AGAIN. REPORTED INCREASED PAIN AFTER ACTIVITY THAT IMPROVED WITH DILAUDID. DENIES NAUSEA. PASSING GAS.
--- NOTE | 2023-09-22 09:17 | PM.GSPN ---
Subjective Subjective Date Seen: 09/22/23 Interval history: Patient did well yesterday without NG tube. She denied nausea vomiting. She started to pass gas overnight. She was active and in the hallway in the wheelchair. Exam Narrative: Exam Narrative: Abdomen is soft, tender to palpation near her midline laparotomy incision. There is resolving ecchymosis surrounding her laparotomy incision. No peritoneal signs. Const: Vital Signs, click to edit/add: Vital Signs - 24 hr 09/21/23 12:30 09/21/23 15:30 09/21/23 15:30 Temperature 97.9 F 98.9 F Pulse Rate [Left P ulse Oximeter] 88 81 81 Respiratory Rate 18 18 18 Blood Pressure [Le ft Arm] 148/89 H Pulse Oximetry 91 95 Oxygen Delivery Me thod Room Air Room Air 09/21/23 19:00 09/22/23 03:30 09/22/23 07:48 Temperature 98.6 F 97.7 F 98.0 F Pulse Rate [Left P ulse Oximeter] 81 76 79 Respiratory Rate 18 18 18 Blood Pressure [Le ft Arm] 140/84 H 156/89 H 167/99 H Pulse Oximetry 95 95 96 Oxygen Delivery Me thod Room Air Room Air Room Air Progress Note:A&P Assessment and plan (1) S/P exploratory laparotomy: Status: Acute Assessment and Plan: 73-year-old female s/p exploratory laparotomy POD 3. Patient is improving. Will advance her to clear liquid diet. If doing well, will advance further tomorrow. Possible discharge to assisted living in 1-2 days.
[2023-09-22] MEDS: GABAPENTIN 100 MG CAPSULE PO ×3 (09:24→20:53)
[2023-09-22] MEDS: OMEPRAZOLE 20 MG CAPSULE DR PO (09:25)
[2023-09-22] MEDS: BACLOFEN 10 MG TABLET PO ×2 (09:25→20:53)
[2023-09-22] MEDS: FLUOXETINE HCL 20 MG CAPSULE 40 MG PO (09:25)
[2023-09-22] MEDS: POTASSIUM BICARB 25 MEQ EFFERVESCENT TAB PO ×2 (11:37→18:00)
[2023-09-22] MEDS: 5 % DEX/0.9 SOD CHL+KCL 20 mEq 1,000 ML 50 ML IV (12:42)
[2023-09-22] MEDS: ENOXAPARIN 40 MG/0.4 ML INJ SUBCUT (12:42)
[2023-09-22] MEDS: ONDANSETRON 2 MG/ML inj IVP (12:47)
--- NOTE | 2023-09-22 13:42 | P.IMPN_ITS ---
Progress Note: A&P Assessment and plan (1) S/P exploratory laparotomy: Problem details: - 09/19/23 Dr. Mathur. Lysis of adhesions for closed loop obstruction. No bowel resection. Anticipate slow return of bowel function due to mesenteric edema. Status: Acute (2) Hemiparesis: Problem details: spastic paresis, affecting dominant side, due to h/o stroke. Abdominal surgery is affecting her ability to transfer. PT and OT to work towards discharge back to [facility]. She reports weight-bearing is much better today Status: Chronic (3) Discharge planning issues: Problem details: Prior to admission patient was functioning fairly well at [facility]. Goal is to return there. She will need to regain her ability to transfer independently to achieve this goal. Still having quite a bit of abdominal pain and core weakness with transfers. Status: Acute (4) Fracture of right ankle, lateral malleolus: Problem details: Avulsion facture of lateral malleolus of right ankle. Weight-bearing as tolerated. Has AFO for old stroke on that side. Status: Acute Plan Continue in hospital for management of postoperative cares, advancing diet and therapy to regain mobility. Time Spent With Patient Total time spent: Total time spent today is 35 minutes, 25 minutes in coordination of care discussing with patient, family and other providers ongoing evaluation management of recovery from surgery and rehabilitation Subjective Date Seen: 09/22/23 Interval history: Shanti Hollins is a 73 year old female with a h/o right spastic hem iparesis due to hemorrhagic stroke 14 years ago who had sudden onset of abdominal pain and vomiting the day of admission. She was found to have an SBO and had an exploratory laporotomy with lysis of adhesions at the time of admission by Dr. Mathur. Operative findings include a closed loop small-bowel obstruction secondary to adhesion. She had lysis of adhesions without bowel resection. Prominent mesenteric edema noted. Postoperatively she has had an NG tube in place. September 20: She reports discomfort from the NG tube, abdominal pain with any movement or coughing. She has not had dyspnea or fever. She has not yet passed gas. September 21: NG tube removed yesterday and patient tolerated this well. Past gas last night and had a small stool this morning. No bloating, no nausea. Has inc isional abdominal pain only associated with movement. Feeling good about making progress with therapy. Exam Narrative: Exam Narrative: She is alert and appears in no distress. Respirations are clear to auscultation. Cardiovascular: S1, S2, regular rate and rhythm. Abdomen: B owel sounds are present. Abdomen is soft with still ongoing mid abdominal tenderness. Incision is clean and dry with mild bruising and no erythema or drainage. Extremities without edema. Const: Vital Signs, click to edit/add: Vital Signs - 24 hr 09/21/23 15:30 09/21/23 15:30 09/21/23 19:00 Temperature 98.9 F 98.6 F Pulse Rate [Left P ulse Oximeter] 81 81 81 Respiratory Rate 18 18 18 Blood Pressure [Le ft Arm] 148/89 H 140/84 H Pulse Oximetry 95 95 Oxygen Delivery Me thod Room Air Room Air 09/22/23 03:30 09/22/23 07:00 09/22/23 07:48 Temperature 97.7 F 98.0 F Pulse Rate [Left P ulse Oximeter] 76 78 79 Respiratory Rate 18 18 18 Blood Pressure [Le ft Arm] 156/89 H 167/99 H Pulse Oximetry 95 96 Oxygen Delivery Me thod Room Air Room Air 09/22/23 11:00 Temperature 98.3 F Pulse Rate [Left P ulse Oximeter] 78 Respiratory Rate 18 Blood Pressure [Le ft Arm] 149/90 H Pulse Oximetry 95 Oxygen Delivery Me thod Room Air Documenting provider has reviewed patient's vital signs: yes Labs Labs: Laboratory Results - last 24 hr 09/22/23 05:57 WBC 5.27 RBC 4.09 Hgb 13.1 Hct 39.0 MCV 95 MCH 32 MCHC 34 RDW Coeff of Alex 12.4 Plt Count 253 Neut % (Auto) 63.9 Lymph % (Auto) 26.2 Stanley % (Auto) 8.0 Eos % (Auto) 0.9 Baso % (Auto) 0.2 Neut # (Auto) 3.37 Lymph # (Auto) 1.38 Stanley # (Auto) 0.40 Eos # (Auto) 0.05 Baso # (Auto) 0.01 Abs Immat Gran (auto) 0.04 Imm/Tot Granulo (auto) 0.8 Sodium 139 Potassium 3.3 L Chloride 110 Carbon Dioxide 22 Anion Gap 7 BUN 7 Creatinine 0.4 L Estimated Creat Clear 48.30 Estimated GFR 106 Glucose 97 Calcium 8.3 L
--- NOTE | 2023-09-22 18:50 | PC.NURSE ---
End of shift-- Pleasant, alert and oriented patient. VSS and pt is afebrile. SPO2 >90% on RA. She c/o increased pain with movement, but stated that it resolved without intervention. LS CTA. She briefly c/o nausea while drinking her potassium supplement and was given Zofran and stated relief. Incision along midline of abdomen is LINUS with mayra intact and appears to be healing well. Bruising noted along incision. BS + x4 but hypoactive. Pt is passing flatus and had 1x moderate BM today. She was up to the commode and chair with assist of 2 and belt pivot/ small step transfer. Incontinent of urine as well. Numerous family members at bedside today and appear loving and supportive. Report to PREETHI Bear.
[2023-09-22] MEDS: SIMVASTATIN 20 MG TABLET PO (20:53)
[2023-09-22] MEDS: ACETAMINOPHEN 325 MG TABLET 650 MG PO (20:53)
[2023-09-23] VITALS (7 sets, daily range): BP systolic 114–150; BP diastolic 64–93; PULSE 67–78; RESP 16–18; TEMP 36.4–36.6; O2SAT 93–96
[2023-09-23] MEDS: 5 % DEX/0.9 SOD CHL+KCL 20 mEq 1,000 ML 50 ML IV (03:33)
--- NOTE | 2023-09-23 06:33 | PC.NURSE ---
Endo of shift [id number]: A&O pleasant and cooperative. VSS w/ sats>90% on RA. Midline incision open to air w/ stables intact. Hypoactive bowel sounds but pt reports passing gas. X1 large BM during shift.?Reports in abdomen with movement. Pain managed with Tylenol. A2 w/ lucas steady. This am pt reports being too tired to get up and use the commode. Stencil Inspector educated importance of getting up and encouraged pt to use commode. Pt requested the bed jeter which is what was used. Inc of urine. Using call light appropriately. ?
[2023-09-23 06:45] LABS: Basophils Absolute Auto 0.01 K/uL (0.00-0.30); Basophils Percent Auto 0.2 % (0.0-3.0); Eosinophils Absolute Auto 0.11 K/uL (0.00-0.50); Eosinophils Percent Auto 2.4 % (0.0-7.0); Hematocrit 39.7 % (33.0-51.0); Hemoglobin* 13.3 gm/dL (12.0-16.0); Immature Granulocytes Abs Auto 0.01 K/uL (0.00-0.30); Immature Granulocytes Pct Auto 0.2 %; Lymphocytes Absolute Auto 1.62 K/uL (0.90-2.90); Lymphocytes Percent Auto 35.8 % (20-44); Mean Corpuscular HGB Conc 34 gm/dL (32-36); Mean Corpuscular Hemoglobin 32 pg (26-34); Mean Corpuscular Volume 95 fL (80-100); Monocytes Percent Auto 8.2 % (0.0-11.0); Neutrophils Absolute Auto 2.41 K/uL (1.7-7.0); Neutrophils Percent Auto 53.2 % (42.0-72.0); Platelet Count* 270 K/uL (140-440); RDW Coefficient of Variation % 12.6 % (11.5-15.5); Red Blood Count 4.17 m/uL (4.00-5.20); White Blood Count* 4.53 K/uL (4.50-11.00)
[2023-09-23 06:51] LABS: Slide Review Reflex No
[2023-09-23 07:11] LABS: Chloride* 111 mmol/L (96-114); Sodium* 140 mmol/L (135-149)
[2023-09-23 07:12] LABS: Potassium* 3.6 mmol/L (3.6-5.1)
[2023-09-23 07:14] LABS: Anion Gap 6 mEq/L (7-15); Carbon Dioxide* 23 mmol/L (20-32); Creatinine* 0.4 mg/dL (0.5-1.5); Estimated Glomerular Filt Rate 106 ml/min
[2023-09-23 07:15] LABS: Blood Urea Nitrogen* 5 mg/dL (7-30); Calcium* 8.5 mg/dL (8.4-10.6); Glucose* 100 mg/dL (60-115)
[2023-09-23] MEDS: ACETAMINOPHEN 325 MG TABLET 650 MG PO ×2 (08:32→21:26)
[2023-09-23] MEDS: FLUOXETINE HCL 20 MG CAPSULE 40 MG PO (08:32)
[2023-09-23] MEDS: OMEPRAZOLE 20 MG CAPSULE DR PO (08:32)
[2023-09-23] MEDS: BACLOFEN 10 MG TABLET PO ×2 (08:32→21:26)
[2023-09-23] MEDS: GABAPENTIN 100 MG CAPSULE PO ×3 (08:32→21:26)
--- NOTE | 2023-09-23 11:39 | PM.GSPN ---
Subjective Subjective Date Seen: 09/23/23 Interval history: Patient did well overnight. She tolerated clears with no nausea or vomiting. She continues to pass gas and had a bowel movement in the morning. Exam Narrative: Exam Narrative: Abdomen is soft, not distended, S2 tender to palpation to the right of the midline incision. Midline incision is with intact mayra and surrounding jud incisional resolving ecchymosis with no erythema. Const: Vital Signs, click to edit/add: Vital Signs - 24 hr 09/22/23 15:00 09/22/23 15:00 09/22/23 19:42 Temperature 98.0 F 98.4 F Pulse Rate [Left P ulse Oximeter] 74 74 73 Respiratory Rate 18 18 18 Blood Pressure [Le ft Arm] 154/92 H 144/89 H Pulse Oximetry 95 94 Oxygen Delivery Me thod Room Air Room Air 09/22/23 22:45 09/23/23 03:35 09/23/23 08:30 Temperature 97.8 F Pulse Rate [Left P ulse Oximeter] 75 67 75 Respiratory Rate 16 16 16 Blood Pressure [Le ft Arm] 135/84 150/93 H Pulse Oximetry 93 96 Oxygen Delivery Me thod Room Air Room Air 09/23/23 08:30 09/23/23 11:29 Temperature 97.6 F 97.7 F Pulse Rate [Left P ulse Oximeter] 75 78 Respiratory Rate 18 18 Blood Pressure [Le ft Arm] 136/88 143/79 H Pulse Oximetry 95 94 Oxygen Delivery Me thod Room Air Room Air Progress Note:A&P Assessment and plan (1) S/P exploratory laparotomy: Status: Acute Plan 73-year-old female s/p exploratory laparotomy with lysis of adhesions POD 4. Patient is doing well. She can advance to regular diet later today. Patient will be ready to be discharged to rehab to improve mobility. She will need staple removal at 10 days postop.
--- NOTE | 2023-09-23 11:52 | PC.SOCIAL ---
Discharge planning- Per therapy recommendation, pt will need short-term rehab stay. Per MD, pt will likely be ready for discharge tomorrow. Met with pt and pt's sister (CELINA Muñoz) to discuss therapy recommendations. Pt was aware and is agreeable to short-term rehab stay prior to returning to [facility]. Pt preference is [facility] and [facility]. Contacted the following SNF's for placement. 1. [facility]- Phone call to Dexter Martinez in admissions at [phone]. There are no openings this week. 2. [facility]- Phone call to Hiral in admissions at [phone]. They will assess for placement. Secure e-mailed referral to Hiral Biswas in admissions. Secure e-mail to Lisy Rogers ([facility] office services clerk) to provide update on pt. Social work will continue to follow up as needed.
[2023-09-23] MEDS: ENOXAPARIN 40 MG/0.4 ML INJ SUBCUT (12:32)
--- NOTE | 2023-09-23 14:49 | P.IMPN_ITS ---
Progress Note: A&P Assessment and plan (1) S/P exploratory laparotomy: Problem details: - 09/19/23 Dr. Mathur. Lysis of adhesions for closed loop obstruction. No bowel resection. Has now returned to relatively normal bowel function and oral intake. Status: Acute (2) Discharge planning issues: Problem details: Prior to admission patient was functioning fairly well at [facility]. Goal is to return there. She will need to regain her ability to transfer independently to achieve this goal. Still having quite a bit of abdominal pain and core weakness with transfers. May need group home facility rehab before going home Status: Acute (3) Small bowel obstruction: Problem details: - now s/p exp lap. No complications. Status: Acute (4) Hemiparesis: Problem details: spastic paresis, affecting dominant side, due to h/o stroke. Abdominal surgery is affecting her ability to transfer. PT and OT to work towards discharge back to [facility]. She reports weight-bearing is improving day-by-day. Appears to need a group home facility before independent living Status: Chronic (5) Fracture of right ankle, lateral malleolus: Problem details: Avulsion facture of lateral malleolus of right ankle. Weight-bearing as tolerated. Has AFO for old stroke on that side. Status: Acute Plan Continue in hospital with advancing to normal diet with anticipated discharge tomorrow. Probable going to group home facility for some rehab before going home. Time Spent With Patient Total time spent: Total time spent today is 40 minutes, 30 minutes in coordination of care discussing with patient sister and other providers disposition plan. 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 She was found to have an SBO and had an exploratory laporotomy with lysis of adhesions at the time of admission by Dr. Mathur. Operative findings include a closed loop small-bowel obstruction secondary to adhesion. She had lysis of adhesions without bowel resection. Prominent mesenteric edema noted. Postoperatively she has had an NG tube in place. September 20: She reports discomfort from the NG tube, abdominal pain with any movement or coughing. She has not had dyspnea or fever. She has not yet passed gas. September 21: NG tube removed yesterday and patient tolerated this well. Past gas last night and had a small stool this morning. No bloating, no nausea. Has incisional abdominal pain only associated with movement. Feeling good about making progress with therapy. September 22: Met with patient and sister. Still continue to make progress. Still having moderate amount of pain in her abdomen with activity which is inhibiting her normal mobility. Has had couple bowel movements and is tolerating a full liquid diet. No respiratory problems. Exam Narrative: Exam Narrative: She is alert no distress. Breathing is unlabored. Abdomen with bowel sounds present. Abdomen incision is clean and dry. Bruising is fading. No erythema and no drainage. Extremities without significant edema. Const: Vital Signs, click to edit/add: Vital Signs - 24 hr 09/22/23 15:00 09/22/23 15:00 09/22/23 19:42 Temperature 98.0 F 98.4 F Pulse Rate [Left P ulse Oximeter] 74 74 73 Respiratory Rate 18 18 18 Blood Pressure [Le ft Arm] 154/92 H 144/89 H Pulse Oximetry 95 94 Oxygen Delivery Me thod Room Air Room Air 09/22/23 22:45 09/23/23 03:35 09/23/23 08:30 Temperature 97.8 F Pulse Rate [Left P ulse Oximeter] 75 67 75 Respiratory Rate 16 16 16 Blood Pressure [Le ft Arm] 135/84 150/93 H Pulse Oximetry 93 96 Oxygen Delivery Me thod Room Air Room Air 09/23/23 08:30 09/23/23 11:29 Temperature 97.6 F 97.7 F Pulse Rate [Left P ulse Oximeter] 75 78 Respiratory Rate 18 18 Blood Pressure [Le ft Arm] 136/88 143/79 H Pulse Oximetry 95 94 Oxygen Delivery Me thod Room Air Room Air Documenting provider has reviewed patient's vital signs: yes Labs Labs: Laboratory Results - last 24 hr 09/23/23 06:00 WBC 4.53 RBC 4.17 Hgb 13.3 Hct 39.7 MCV 95 MCH 32 MCHC 34 RDW Coeff of Alex 12.6 Plt Count 270 Neut % (Auto) 53.2 Lymph % (Auto) 35.8 [place] % (Auto) 8.2 Eos % (Auto) 2.4 Baso % (Auto) 0.2 Neut # (Auto) 2.41 Lymph # (Auto) 1.62 [place] # (Auto) 0.40 Eos # (Auto) 0.11 Baso # (Auto) 0.01 Abs Immat Gran (auto) 0.01 Imm/Tot Granulo (auto) 0.2 Sodium 140 Potassium 3.6 Chloride 111 Carbon Dioxide 23 Anion Gap 6 L BUN 5 L Creatinine 0.4 L Estimated Creat Clear 48.30 Estimated GFR 106 Glucose 100 Calcium 8.5
--- NOTE | 2023-09-23 19:08 | PC.NURSE ---
Nursing Care Hours: [id number] Pt this shift calm and cooperative, alert and oriented. Pain 2/10 this AM, treated with Tylenol, no pain reported rest of shift. Abdomen incision intact and asymptomatic. Pivot assist to BSC. IV leaking but otherwise patent and non tender. Tolerating advanced regular diet, typewriter mechanic encouraging pt to increase fluids. Using IS independently Q30min. Design Cell Engineer recommended taking big sips of water after each IS session.
[2023-09-23] MEDS: SIMVASTATIN 20 MG TABLET PO (21:26)
[2023-09-24] VITALS (9 sets, daily range): BP systolic 124–154; BP diastolic 74–96; PULSE 63–80; RESP 14–16; TEMP 36.4–36.6; O2SAT 93–96
--- NOTE | 2023-09-24 06:32 | PC.NURSE ---
Pt is alert and oriented x3. Afebrile. Pt reports 1/10 pain in abdomen and reports tolerating it well. Pt?s midline stapled incision is open to air and CDI, small amount yellow bruising is noted. Pt denies passing gas?and bowel sounds are hypoactive. Pt is up SBA?Pivot to commode, voiding, and tolerating reg diet. Pt slept intermittently throughout night.??
[2023-09-24] MEDS: BACLOFEN 10 MG TABLET PO ×2 (09:09→20:57)
[2023-09-24] MEDS: FLUOXETINE HCL 20 MG CAPSULE 40 MG PO (09:10)
[2023-09-24] MEDS: GABAPENTIN 100 MG CAPSULE PO ×3 (09:10→20:58)
[2023-09-24] MEDS: OMEPRAZOLE 20 MG CAPSULE DR PO (09:10)
[2023-09-24] MEDS: ACETAMINOPHEN 325 MG TABLET 650 MG PO ×2 (10:02→20:58)
--- NOTE | 2023-09-24 11:12 | PC.SOCIAL ---
Addendum entered by BRIAN Rocha 09/24/23 17:07: Received a phone call from Tisha in admissions at [facility] at [phone]. Tisha has reviewed referral and can medically accept pt for admission. Tisha informs that pt's insurance needs prior authorization. Tisha will check into this tomorrow morning, since it is end of the day and will provide an update to social work. Phone call to pt's sister Wanda and provided update. Wanda would like to accept bed for pt and she will call pt and provide update. Pt is wanting to go to SNF in [place] to be closer to pt's sister. Pt's sister, Wanda, will transport pt to SNF when needed. Pt's sister requests that social work call her with an update on discharge date/time. Provided update to charge nurse, Ayla. Phone call to Nelda Brady in [place] and left voicemail informing that pt needs prior auth. Addendum entered by BRIAN Rocha 09/24/23 16:29: Follow up phone call to [facility] and spoke to Oralia in admissions. There is openings and they will review. Faxed referral to [facility] at [phone]. Pt's preference is 1. [facility], 2. [facility], and 3. [facility]. All three facilities have openings and are reviewing. Original Note: Discharge planning- Met with pt and pt's sister, Wanda, to discuss discharge plans. Provided update on placement options. Pt's sister would like this worker to check into two options that are in [place], since pt's sister lives in [place]. The following facilities are reviewing or have been contacted. 1. [facility]- Referral was faxed yesterday and admissions is reviewing. 2. [facility] ([place])- Phone call to admissions at [phone], left voicemail for Oralia inquiring on bed availability. [facility])- Phone call to admissions at [phone]. They have openings and will review. Faxed referral to [phone]. Social Work will continue to follow up as needed.
[2023-09-24] MEDS: ENOXAPARIN 40 MG/0.4 ML INJ SUBCUT (12:00)
--- NOTE | 2023-09-24 13:05 | PM.GSPN ---
Subjective Subjective Date Seen: 09/24/23 Interval history: Patient is doing well. She is tolerating regular diet. She is passing gas. She still working with therapies to get stronger. Exam Narrative: Exam Narrative: Abdomen is soft, not distended, not tender to palpation. Midline laparotomy incision with intact mayra with resolving jud-incisional ecchymosis. There is no erythema. Const: Vital Signs, click to edit/add: Vital Signs - 24 hr 09/23/23 15:00 09/23/23 16:00 09/23/23 20:00 Temperature 98 F 98 F Pulse Rate [Left P ulse Oximeter] 78 78 77 Respiratory Rate 18 18 18 Blood Pressure [Le ft Arm] 141/76 H 114/64 Pulse Oximetry 93 95 Oxygen Delivery Me thod Room Air Room Air 09/24/23 00:40 09/24/23 03:30 09/24/23 07:00 Temperature 97.6 F 97.7 F Pulse Rate [Left P ulse Oximeter] 68 63 72 Respiratory Rate 16 14 14 Blood Pressure [Le ft Arm] 124/77 133/85 Pulse Oximetry 93 94 Oxygen Delivery Me thod Room Air Room Air 09/24/23 08:00 09/24/23 11:50 Temperature 97.7 F 97.8 F Pulse Rate [Left P ulse Oximeter] 72 79 Respiratory Rate 14 14 Blood Pressure [Le ft Arm] 154/96 H 145/89 H Pulse Oximetry 96 96 Oxygen Delivery Me thod Room Air Room Air Progress Note:A&P Assessment and plan (1) S/P exploratory laparotomy: Status: Acute Assessment and Plan: 73-year-old female s/p ex lap POD 5 5. Patient is waiting to hear from rehab when she can be transferred. From surgery standpoint, she is ready to discharge. Patient will see me in clinic next week. Her mayra will need to be removed at 10 days postop.
--- NOTE | 2023-09-24 15:59 | PM.IMPN1 ---
Progress Note: A&P Assessment and plan (1) S/P exploratory laparotomy: Problem details: - 09/19/23 Dr. Mathur. Lysis of adhesions for closed loop obstruction. No bowel resection. Has now returned to relatively normal bowel function and oral intake. Status: Acute (2) Small bowel obstruction: Problem details: - now s/p exp lap. No complications. Status: Acute (3) Discharge planning issues: Problem details: Prior to admission patient was functioning fairly well at [facility]. Goal is to return there. She will need to regain her ability to transfer independently to achieve this goal. Still having quite a bit of abdominal pain and core weakness with transfers. Arrange for prison facility rehab prior to returning home Status: Acute (4) Hemiparesis: Problem details: spastic paresis, affecting dominant side, due to h/o stroke. Abdominal surgery is affecting her ability to transfer. PT and OT to work towards discharge back to [facility]. She reports weight-bearing is improving day-by-day. Appears to need a prison facility before independent living Status: Chronic (5) Fracture of right ankle, lateral malleolus: Problem details: Avulsion facture of lateral malleolus of right ankle. Weight-bearing as tolerated. Has AFO for old stroke on that side. Status: Acute Plan Continue in hospital for rehabilitation pending discharge to prison facility for rehab. Time Spent With Patient Total time spent: Total time spent today is 30 minutes, 20 minutes in coordination of care and discussing management of rehab and recovery from surgery with patient and her sister. 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 She was found to have an SBO and had an exploratory laporotomy with lysis of adhesions at the time of admission by Dr. Mathur. Operative findings include a closed loop small-bowel obstruction secondary to adhesion. She had lysis of adhesions without bowel resection. Prominent mesenteric edema noted. Postoperatively she has had an NG tube in place. September 20: She reports discomfort from the NG tube, abdominal pain with any movement or coughing. She has not had dyspnea or fever. She has not yet passed gas. September 21: NG tube removed yesterday and patient tolerated this well. Past gas last night and had a small stool this morning. No bloating, no nausea. Has incisional abdominal pain only associated with movement. Feeling good about making progress with therapy. September 22: Met with patient and sister. Still continue to make progress. Still having moderate amount of pain in her abdomen with activity which is inhibiting her normal mobility. Has had couple bowel movements and is tolerating a full liquid diet. No respiratory problems. September 23. Patient is seen with her sister. She reports continued to feel stronger. She is no longer needing pain medications for abdominal pain. She has been eating well. No bloating or nausea. She is passing gas but has not had a bowel movement today. She has no other concerns today. Pending prison facility placement for rehab. Exam Narrative: Exam Narrative: She is alert and appears in no distress. Respirations are clear to auscultation. Cardiovascular: S1, S2, regular rate and rhythm. Abdomen: Bowel sounds active. Abdomen with mild tenderness around her incision and just to the right. Incision is clean and dry with some bruising and no erythema or drainage. Const: Vital Signs, click to edit/add: Vital Signs - 24 hr 09/23/23 16:00 09/23/23 20:00 09/24/23 00:40 Temperature 98 F 98 F 97.6 F Pulse Rate [Left P ulse Oximeter] 78 77 68 Respiratory Rate 18 18 16 Blood Pressure [Le ft Arm] 141/76 H 114/64 124/77 Pulse Oximetry 93 95 93 Oxygen Delivery Me thod Room Air Room Air Room Air 09/24/23 03:30 09/24/23 07:00 09/24/23 08:00 Temperature 97.7 F 97.7 F Pulse Rate [Left P ulse Oximeter] 63 72 72 Respiratory Rate 14 14 14 Blood Pressure [Le ft Arm] 133/85 154/96 H Pulse Oximetry 94 96 Oxygen Delivery Ak thod Room Air Room Air 09/24/23 11:50 09/24/23 15:00 09/24/23 15:38 Temperature 97.8 F 97.7 F Pulse Rate [Left P ulse Oximeter] 79 80 80 Respiratory Rate 14 14 14 Blood Pressure [Le ft Arm] 145/89 H 150/74 H Pulse Oximetry 96 94 Oxygen Delivery Ak thod Room Air Room Air Documenting provider has reviewed patient's vital signs: yes
--- NOTE | 2023-09-24 18:45 | PC.NURSE ---
End of shift: Pt is alert and oriented x3. Afebrile. Pt reports 1/10 pain in abdomen and reports tolerating it well. Pt?s midline stapled incision is open to air and CDI, Pt is up SBA?Pivot to commode, voiding, and tolerating reg diet. Worked with PT/OT and stated she feels much better.
[2023-09-24] MEDS: SIMVASTATIN 20 MG TABLET PO (20:58)
[2023-09-25 03:40] VITALS: BP 137/81; PULSE 67; RESP 16; TEMP 36.6; O2SAT 94
--- NOTE | 2023-09-25 06:25 | PC.NURSE ---
End of shift [id number]: A&O pleasant and cooperative. VSS w/ sats>90% on RA. Midline incision open to air w/ mayra intact. Reports passing gas. A1 to commode overnight. frequently incont. of urine. Denies pain. Using call light appropriately.?
[2023-09-25 07:00] VITALS: PULSE 67; RESP 16
[2023-09-25 08:00] VITALS: BP 151/96; PULSE 67; RESP 16; TEMP 36.6; O2SAT 94
[2023-09-25] MEDS: OMEPRAZOLE 20 MG CAPSULE DR PO (08:57)
[2023-09-25] MEDS: FLUOXETINE HCL 20 MG CAPSULE 40 MG PO (08:57)
[2023-09-25] MEDS: BACLOFEN 10 MG TABLET PO (08:57)
[2023-09-25] MEDS: ACETAMINOPHEN 325 MG TABLET 650 MG PO (08:58)
[2023-09-25] MEDS: GABAPENTIN 100 MG CAPSULE PO (08:58)
--- NOTE | 2023-09-25 10:51 | PC.SOCIAL ---
Discharge plan: Called [facility] [place] at [phone] and provided information on prior authorization for short-term rehab from pt's insurance auth #[id number] for September 25, 2023 through October 01, 2023. [facility] [place] requested arrival for admit at 2:00 today and needs admission orders sent 2 hours prior to admit to fax#[phone]. Called pt's sister, Wanda, at pt's request and updated her on this plan. Sister and daughter will provide transport and plan to pick her up at 1:00 today. field crop ii farmworker to follow up as needed.
--- NOTE | 2023-09-25 11:53 | P.DS_ITS ---
DS: Providers Provider Date Seen: 09/25/23 Date of admission: 09/19/23 00:40 Primary care physician: Daylin Rosales MD Admitting Clinician: Walter Mathur MD Attending Physician on discharge: Checo Villela MD Date of Discharge: 09/25/23 DS: Diagnosis Discharge Diagnosis (1) S/P exploratory laparotomy: Status: Acute Problem details: - 09/19/23 Dr. Mathur. Lysis of adhesions for closed loop obstruction. No bowel resection. Uncomplicated recovery. Now eating a normal diet and having normal bowel function. (2) Small bowel obstruction: Status: Acute Problem details: - now s/p exp lap. No complications. (3) Discharge planning issues: Status: Acute Problem details: Prior to admission patient was functioning fairly well at [facility]. Goal is to return there. She will need to regain her ability to transfer independently to achieve this goal. Arrange for retirement facility rehab prior to returning home (4) Hemiparesis: Status: Chronic Problem details: spastic paresis, affecting dominant side, due to h/o stroke. Abdominal surgery is affecting her ability to transfer. PT and OT to work towards discharge back to [facility]. She reports weight-bearing is improving day-by-day. Appears to need a retirement facility before independent living (5) Fracture of right ankle, lateral malleolus: Status: Acute Problem details: Avulsion facture of lateral malleolus of right ankle. Weight-bearing as tolerated. Has AFO for old stroke on that side. 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 She was found to have an SBO and had an exploratory laporotomy with lysis of adhesions at the time of admission by Dr. Mathur. Operative findings include a closed loop small-bowel obstruction secondary to adhesion. She had lysis of adhesions without bowel resection. Prominent mesenteric edema noted. Postoperatively she has had an NG tube in place. Since surgery she has had steady improvement. NG tube was removed she has advanced to a normal diet and bowel function is return to normal. She has had no postoperative complications. She is making steady improvement with therapy to return to her baseline mobility with a goal of being discharged back to [facility] assisted living Status at Discharge Functional status at discharge: uses cane/walker Overall status at discharge: patient is progressing back to baseline Time Spent with Patient Time attestation: Total time spent providing and/or coordinating discharge services: Time spent: Greater than 30 minutes Exam Narrative: Exam Narrative: She is alert no distress. Respirations are unlabored. She is observed to move with therapy much better than she did a couple days ago. Const: Vital Signs, click to edit/add: Vital Signs - 24 hr 09/24/23 15:00 09/24/23 15:38 09/24/23 19:22 Temperature 97.7 F 97.9 F Pulse Rate [Left P ulse Oximeter] 80 80 75 Respiratory Rate 14 14 16 Blood Pressure [Le ft Arm] 150/74 H 146/84 H Pulse Oximetry 94 96 Oxygen Delivery Me thod Room Air Room Air 09/24/23 23:32 09/25/23 03:40 09/25/23 07:00 Temperature 97.9 F 97.8 F Pulse Rate [Left P ulse Oximeter] 74 67 67 Respiratory Rate 16 16 16 Blood Pressure [Le ft Arm] 146/84 H 137/81 Pulse Oximetry 95 94 Oxygen Delivery Me thod Room Air Room Air 09/25/23 08:00 Temperature 97.8 F Pulse Rate [Left P ulse Oximeter] 67 Respiratory Rate 16 Blood Pressure [Le ft Arm] 151/96 H Pulse Oximetry 94 Oxygen Delivery Me thod Room Air Documenting provider has reviewed patient's vital signs: yes DS: Data Data Completed and Pending Labs on day of discharge: Preliminary micro results at discharge 09/21/23 05:55 Blood Culture - Preliminary Blood NO GROWTH AFTER 96 HOURS 09/22/23 05:57 Blood Culture - Preliminary Blood NO GROWTH AFTER [address] scan - abdomen: Radiologist's impression: Indication: Left abdominal pain, vomiting, history of bowel obstruction Comparison: None available. Technique: CT of the abdomen and pelvis with IV contrast. 83 mL Isovue 370 IV. Findings: Examination is positive for small bowel obstruction with multiple fluid-filled bowel loops with air-fluid levels seen measuring just under 3 cm in the anterior mid abdomen and pelvis. Mesenteric venous congestion and moderate amount of stranding surrounding these bowel loops especially in the lower pelvis. Swirling of loops around some postsurgical changes around the cecum is seen which appears tethered towards the midline (see image 75, series 2, and image 38, series 4). No pneumatosis or portal venous gas. No mesenteric venous gas. Small amount of perihepatic fluid and small amount of fluid in the pelvis. Trace fluid between the affected bowel loops. The mucosal enhancement appears intact within the bowel loops. Non cirrhotic liver morphology. Patent portal and hepatic veins. The spleen is normal size. No suspicious incidental findings in the lung bases. Adrenal glands appear unremarkable. Kidneys enhance symmetrically without hydronephrosis. No suspicious pancreatic abnormality. The gallbladder appears unremarkable. The IVC and iliac veins are patent. Atherosclerotic changes within the abdominal aorta without abdominal aortic aneurysm. Femoral neck screw fixation. No aggressive appearing osseous lesion. Mild height loss of lower thoracic vertebral bodies. No obvious abnormality involving the uterus or adnexa. Impression: Distal small bowel obstruction which appears tethered and swirling around postoperative changes in the region of the cecum. Small amount of fluid between the bowel loops more inferiorly, with trace amount of fluid around the liver and in the pelvis are concerning but there is no definite pneumatosis or portal venous gas. Correlate with lactate, and exam to determine if there is ischemia. Recommend surgical consult. Discharge Plan Discharge Disposition: [facility] Date of Admission: 09/19/23 00:40 Attending Provider on Discharge: Kirill Villela Primary Care Provider: Daylin Rosales Discharge Medications: Continued gabapentin 100 mg capsule 100 mg PO TID Qty: 270 3RF omeprazole 20 mg capsule,delayed release(DR/EC) 20 mg PO QAM Qty: 90 3RF simvastatin 20 mg tablet 20 mg PO HS clindamycin phosphate 1 % gel 1 applic topical HS Rx Instructions: APPLIED TO POSTERIOR THIGH AREA calcium carbonate-vitamin D3 [Calcium 600 + D(3)] 600 mg-5 mcg (200 unit) tablet 1 tab PO BID sennosides 8.6 mg tablet 3 mg PO BID PRN (Reason: constipation) Qty: 180 0RF benzoyl peroxide 2.5 % gel 1 applic topical QAM Qty: 60 11RF Rx Instructions: APPLIED TO FACE fluoxetine 40 mg capsule 40 mg PO DAILY Qty: 90 1RF baclofen 10 mg tablet 10 mg PO BID Qty: 180 1RF Discharge Orders: Discharge Order (Routine); Ordered 09/25/23 Ordered By: Kirill Villela Activity Level: No strenuous activity, Weight Bearing as Tolerated and Other Activity Detail: right AFO with weight bearing Discharge Diet: Regular Follow Up Appointments: Walter Mathur MD [Staff Physician] - (on 09/30 for staple removal and post op) Daylin Rosales MD [Primary Care Provider] - Forms: [facility] Info Instructions Wound Care: remove mayra on September 3, 10 days after surgery Admit to: SNF Discharge Potential: Good Length of Stay: <30 days Can use facility standing orders?: Yes Code Status: Full Code TEDs: Bilateral Knee Rehab Potential: Good Therapy: Physical Therapy and Occupational Therapy Therapy Orders: Evaluate and Treat Oxygen: No
--- NOTE | 2023-09-25 12:03 | P.GSPN_ITS ---
Subjective Subjective Date Seen: 09/25/23 Interval history: Pat is doing well. She is tolerating a regular diet. She is moving her bowels. No nausea. She is wondering when she will be able to get back in the whirlpool Exam Narrative: Exam Narrative: Abdomen: incision clean, dry and intact without erythema. Small amount of ecchymosis. Mayra are intact. Const: Vital Signs, click to edit/add: Vital Signs - 24 hr 09/24/23 15:00 09/24/23 15:38 09/24/23 19:22 Temperature 97.7 F 97.9 F Pulse Rate [Left P ulse Oximeter] 80 80 75 Respiratory Rate 14 14 16 Blood Pressure [Le ft Arm] 150/74 H 146/84 H Pulse Oximetry 94 96 Oxygen Delivery Me thod Room Air Room Air 09/24/23 23:32 09/25/23 03:40 09/25/23 07:00 Temperature 97.9 F 97.8 F Pulse Rate [Left P ulse Oximeter] 74 67 67 Respiratory Rate 16 16 16 Blood Pressure [Le ft Arm] 146/84 H 137/81 Pulse Oximetry 95 94 Oxygen Delivery Me thod Room Air Room Air 09/25/23 08:00 Temperature 97.8 F Pulse Rate [Left P ulse Oximeter] 67 Respiratory Rate 16 Blood Pressure [Le ft Arm] 151/96 H Pulse Oximetry 94 Oxygen Delivery Me thod Room Air Progress Note:A&P Assessment and plan (1) S/P exploratory laparotomy: Status: Acute Plan The patient is postop day 6 from laparotomy lysis of adhesions for closed loop s mall-bowel obstruction. She is tolerating a diet has return of bowel function. Plan is to discharge to nursing home facility for rehab. -regular diet -per Dr. Mathur, mayra can be removed on postop day 10 -discussed with the patient that it is okay to shower, however for the whirlpool, she should wait until the mayra are out and at least 2 weeks from surgery, however I did recommend that she verify with Dr. Mathur prior to bathing. -okay to discharge when nursing home facility bed available.
--- NOTE | 2023-09-25 13:20 | PC.NURSE ---
Discharge to [facility] [place] today at 1252 accompanied by sister. Patient alert and oriented, VSS. RA. IV removed intact. Patient belongings sheet and discharge instructions given and signed. Copies sent with family to the receiving facility. Nurse to Nurse given.
--- OUTSIDE RECORDS SUMMARY | 2023-10-06 11:28 | XMS_ITS | Clinical Summary ---
Author Organization [facility] Address [place], [place] [address] Care Team Providers Care Vp Of Digital Marketing Name Role Phone Daylin Rosales MD Primary Care Provider [phone] Stella Padron MD Unavailable [phone] Allergies Active Allergy Reactions Criticality Noted [...] 8.6-50 mg, (SENOKOT S) 8.6-50 mg tabletIndications:[facility] Take 3 tablets by mouth [...] - 07/17/2023 11:59 PM CDT Hospital Encounter [facility] [address] [place] [address] Stella Padron MD 07/17/2023 10:45 AM CDT [facility] [address] [place] [phone] Stella Padron MD Procedure (Botox) 07/17/2023 Travel from Last 3 Months Social History Tobacco [...] kg (185 lb) 05/10/2021 10:3 6 AM WEIGHT REDUCTION SPECIALIST Patient reported Height 170.2 cm (5' 7) 05/10/2021 10:3 6 AM WEIGHT REDUCTION SPECIALIST Patient reported Body Mass Index 28.98 05/10/2021 10:36 AM WEIGHT REDUCTION SPECIALIST Plan of Treatment Upcoming Encounters Date Type Department Care Team (Late st Contact Info) Description 10/23/2023 11:00 AM CDT Procedure Only [facility] [address] [place] [phone] Stella Padron MD [address] [place], [place] [phone] Health Maintenance Due Date Last Done Comments [...] Influenza for age 65+ 12/28/2023 Care Teams Vp Of Digital Marketing Relationship Specialty Start Date End Date Daylin Rosales MD [address] [place] [address] PCP - General Internal Medicine 04/03/15 Stella Padron MD [facility] [place] [address] Physical Medicince Rehab Physical Medicine and Rehabilitation 08/20/18
== END 2023-09-25 12:22 | DRG 336 ==
LOC: ED 20:41 → SS 21:13 → MEDSURG 09-19 08:43 → SS 10-06 11:29 → MEDSURG 10-06 11:29
PROVIDERS: Family Medicine; Admitting Provider Surgery; Emergency Provider Emergency Medicine; PCP Internal Medicine; Visit Provider Surgery
PROC: (CPT 49000; principal; 2023-09-18 21:15)
DX: K56.52 Intestinal adhesions [bands] with complete obstruction (principal); I69.351 Hemiplegia and hemiparesis following cerebral infarction affecting right dominant side; G89.18 Other acute postprocedural pain; S82.61XD Displaced fracture of lateral malleolus of right fibula, subsequent encounter for closed fracture with routine healing; F41.1 Generalized anxiety disorder; F32.9 Major depressive disorder, single episode, unspecified; M81.0 Age-related osteoporosis without current pathological fracture; Z87.81 Personal history of (healed) traumatic fracture; Z87.19 Personal history of other diseases of the digestive system; E78.5 Hyperlipidemia, unspecified
CPT/HCPCS: 00840; 36415; 64488; 71045; 74018; 74177; 76942; 80048; 80053; 80076; 81001; 83605; 83690; 83735; 85025; 86140; 87040; 87081; 87086; 87186; 93005; 97112; 97116; 97162; 97165; 97530; 97535; 99100; 99140; 99284; 99285; A9270; C9290; J0330; J0665; J1100; J1170; J1650; J2270; J2405; J2543; J2704; J2765; J3010; J3475; J3480; J3490; J7030; J7120; Q9967

== ENCOUNTER 2023-11-06 09:40 | Outpatient (CLI) | payer MEDICARE, SELFPAY | END 2023-11-06 09:41 | disposition home or self-care (01) | LOC: NFLDREF 11-07 05:52 | PROVIDERS: PCP Internal Medicine; Referring Provider Internal Medicine; Visit Provider Internal Medicine | DX: E78.5 Hyperlipidemia, unspecified (principal); M81.0 Age-related osteoporosis without current pathological fracture | CPT/HCPCS: 80061; 82306 ==

== ENCOUNTER 2024-01-19 09:00 | Outpatient (CLI) | payer MEDICARE, SELFPAY ==
--- OUTSIDE RECORDS SUMMARY | 2024-01-19 09:03 | XMS_ITS | Clinical Summary ---
Author Organization [facility] Address [place], [place] [address] Care Team Providers Care Manager Competitive Intelligence Name Role Phone Daylin Rosales MD Primary Care Provider [phone] Stella Padron MD Unavailable Allergies Active Allergy Reactions Criticality Noted Date [...] daily with meals. 0 04/17/2015 Active clindamycin 1 % gel 30 mg one time. Active Benzoyl Peroxide 2.5 % topical cream 60 mg once daily. Apply once daily to affected areas 12/14/2015 Active KETAMINE HCL (KETAMINE 8%-GABAPENTIN 6%-LIDOCAINE 2.5%) gelIndications:Neuropa thic pain Apply 0.3-1 mL topically to affected area(s) 4 times daily. 100 mL 05/28/2016 Active sennosides-docusate, 8.6-50 mg, (SENOKOT S) 8.6-50 mg tabletIndications:Heal thcare maintenance Take 3 tablets by mouth once [...] mg) by mouth once daily. 01/11/2021 Active Hospital, Clinic, or Other Facility Administered Medication Ordered Dose Route Frequency Start Date End Date Status onabotulinumtoxinA (BOTOX) injection 600 unitIndications:Spastic hemiparesis affecting dominant side (HC) 600 unit IM ONE TIME 01/15/2024 01/15/2024 Ended Active Problems Problem Noted Date Diagnosed Date Impaired functional mobility, balance, gait, and endurance 09/03/2016 Chronic headache disorder 02/06/2016 Overview (02/06/2016): Site of previous craniectomy Generalized anxiety disorder 02/06/2016 Recurrent boils 02/06/2016 Bladder dysfunction 07/10/2015 Impaired mobility and ADLs 04/02/2015 Spastic hemiparesis affecting dominant side 1209/2014 Spasticity 04/02/2015 Hemisensory loss 04/02/2015 Overview (04/02/2015): Right side Depression 04/02/2015 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 [address] [place] [phone] Stella Padron MD Procedure (Botox) 10/23/2023 Travel from Last 3 Months Social History [...] Sign Reading Time Taken Comments Blood Pressure 130/78 01/15/2024 12:55 PM CDT Pulse 74 01/15/2024 12:55 PM CDT Temperature 36.7 ??C (98.1 ??F) 08/29/2022 1 :35 PM CDT Respiratory Rate 16 01/11/2021 11:0 1 AM CDT Oxygen Saturation 94% 01/15/2024 12: 55 PM CDT Inhaled Oxygen Concentration - - Weight 83.9 kg (185 lb) 05/10/2021 10:3 6 AM GRAND SCRIBE Patient reported Height 170.2 cm (5' 7) 05/10/2021 10:3 6 AM GRAND SCRIBE Patient reported Body Mass Index 28.98 05/10/2021 10:36 AM GRAND SCRIBE Plan of Treatment Upcoming Encounters Date Type Department Care Team (Late st Contact Info) Description 04/15/2024 12:45 PM GRAND SCRIBE Procedure Only [facility] [address] [place] [phone] Stella Padron MD [address] [place], [place] [address] Health Maintenance Due Date Last Done Comments [...] age 18+ 05/10/2022 05/10/2021 COVID-19 vaccine series (2022- season) 2023 01/31/2022, 06/18/2020, 05/21/2020 Influenza for age 65+ 12/28/2023 Insurance Payer Benefit Plan / Group Subscriber ID Effective Dates Phone Address Type MEDICARE - PB USE ONLY MEDICARE PB ONLY [id number] 2020-Prese nt ATTN: CLAIMS [address] [place] [address] MEDICARE PPS HC MEDICARE PPS [id number] 2011-Pre se nt [address] [place] [address] [place]UE [place]OSS [place] BLUE CROSS MEDICARE ADVANTAGE MR [id number] 2023-Prese nt [address] [place] [address] MEDICARE - PB USE ONLY MEDICARE PB ONLY [id number] 2011-Prese nt ATTN: CLAIMS [address] [place] [address] Care Teams Manager Competitive Intelligence Relationship Specialty Start Date End Date Daylin Rosales MD [address] [place] [address] PCP - General Internal Medicine 04/03/15 Stella Padron MD [address] [place], [place] [phone] Physical Medicince Rehab Physical Medicine and Rehabilitation 08/20/18
--- NOTE | 2024-01-19 09:15 | CRLHL7_ITS ---
For Patients: As a result of the Century Cures Act, medical imaging exams and procedure reports are released immediately into your electronic medical record. You may view this report before your referring provider. If you have questions, please contact your health care provider. BILATERAL SCREENING MAMMOGRAM WITH COMPUTER-AIDED DETECTION AND TOMOSYNTHESIS TECHNIQUE: CC and MLO views were obtained. These mammographic images have been obtained using full-field digital technique. These mammographic images were interpreted with the benefit of computer-aided detection. Breast Tomosynthesis was used in this interpretation. COMPARISON FILM: 03/25/23, 01/17/22, 10/04/20. FINDINGS: There are scattered areas of fibroglandular density IMPRESSION: There is no radiographic evidence for malignancy. ASSESSMENT: BI-RADS Category 1: Negative RECOMMENDATION: Routine screening mammogram in 1 year. A lay language report of this examination will be provided to the patient. Bandar Rodriguez M.D. Diagnostic Radiologist [email or web address] TIRSO/Dictated by: Bandar Rodriguez MD @ 01/27/2024 11:57:00 AM (Electronically Signed)
== END 2024-01-19 09:01 | disposition home or self-care (01) ==
LOC: MAMMO 09:02
PROVIDERS: PCP Internal Medicine; Visit Provider Internal Medicine
DX: Z12.31 Encounter for screening mammogram for malignant neoplasm of breast (principal)
CPT/HCPCS: 77063; 77067

== ENCOUNTER 2024-03-15 09:44 | Outpatient (CLI) | payer MEDICARE, SELFPAY ==
--- OUTSIDE RECORDS SUMMARY | 2024-03-19 03:37 | XMS_ITS | Clinical Summary ---
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 05/26/2009 Arteriovenous malformation 10/28/2007 Encounters Date Type Department Care Team Description 01/15/2024 12:45 PM CDT - 01/15/2024 11:59 PM CDT Hospital Encounter [facility] [address] [place] [address] Stella Padron MD 01/15/2024 12:45 PM CDT Procedure Only [facility] [address] [place] [phone] Stella Padron MD Procedure (Botox) 01/15/2024 Travel from Last 3 Months Social History [...] 74 01/15/2024 12:55 PM CDT Temperature 36.7 C (98.1 F) 08/29/2022 1:35 PM CDT Respiratory Rate 16 01/11/2021 11:0 1 AM CDT Oxygen Saturation 94% 01/15/2024 12: 55 PM CDT Inhaled Oxygen Concentration - - Weight 83.9 kg (185 lb) 05/10/2021 10:3 6 AM ABRASIVE BAND WINDER Patient reported Height 170.2 cm (5' 7) 05/10/2021 10:3 6 AM ABRASIVE BAND WINDER Patient reported Body Mass Index 28.98 05/10/2021 10:36 AM ABRASIVE BAND WINDER Plan of Treatment Upcoming Encounters Date Type Department Care Team (Late st Contact Info) Description 04/15/2024 12:45 PM ABRASIVE BAND WINDER Procedure Only [facility] [address] [place] [phone] Stella Padron MD [address] [place], [place] [phone] Health Maintenance Due Date Last Done Comments [...] 05/10/2022 05/10/2021 COVID-19 vaccine series ( season) 2023 01/31/2022, 06/18/2020, 05/21/2020 Influenza for age 65+ 12/28/2023 Insurance Payer Benefit Plan / Group Subscriber ID Effective Dates Phone Address Type MEDICARE - PB USE ONLY MEDICARE PB ONLY [id number] 2020-Prese nt ATTN: CLAIMS [address] [place] [address] MEDICARE PPS HC MEDICARE PPS [id number] 2011-Pre se nt [address] [place] [address] BLUE CROSS MR BLUE CROSS MEDICARE ADVANTAGE MR [id number] 2023-Prese nt [address] [place] [address] MEDICARE - PB USE ONLY MEDICARE PB ONLY [id number] 2011-Prese nt ATTN: CLAIMS [address] [place] [address] Care Teams Truck Bench Mechanic Relationship Specialty Start Date End Date Daylin Rosales MD [address] [place] [address] PCP - General Internal Medicine 04/03/15 Stella Padron MD [facility] [place] [address] Physical Medicince Rehab Physical Medicine and Rehabilitation 08/20/18
--- OUTSIDE RECORDS SUMMARY | 2024-03-19 03:37 | XMS_ITS | Continuity of Care Document ---
Author Organization [facility] Address [address] [address] [place] [address] Phone Care Team Providers Care Brick And Tile Making Machine Operator Name Role Phone Alphonso GUADALUPE, Unavailable Unavailable Medications Medication Instructions Dosage Effective Dates (start - stop) Status Comments MiralaxBisacodylMagCit Colon Prep Use as directed - Active Advance Directives Directive Yes / No Effective Date File Name No Information Encounters Encounter Description Practice Location Reason(s) For Visit Diagnoses Date Provider Providers Copied on Encounter [facility], [address] [address], [place], [place], [id number], [place] tel:[phone] [facility] No Information 2 Alphonso GUADALUPE . [address] [facility], [place] [address], [place], [place], [id number] , [place]. tel:[phone] Referring Provider: Wanda Kent MD, [address] [place], [address]. tel:[phone] Family History Family Member Type Diagnosis Age At Onset No Information Payers Payer name Insurance type Covered republican ID Authoriza tion(s) No Information Social History Type Description Quantity Date Captured Comments Sex Female Smoking Status No Information Chief Complaint And Reason For Visit No Information Reason For Referral Reason For Referral No Information History Of Present Illness Encounter Date Complaint History Of Prese nt Illness No Information Functional Status Date Functional Assessmen t No Information Instructions Date Instruction Additional Infor mation No Information Assessments Type Assessment Date No Information Patient Care Teams Name Effective Dates (start - stop) Status Members No Information
== END 2024-03-15 09:45 | disposition home or self-care (01) ==
LOC: NFLDREF 03-19 03:35
PROVIDERS: PCP Internal Medicine; Referring Provider Internal Medicine; Visit Provider Internal Medicine
DX: M81.0 Age-related osteoporosis without current pathological fracture (principal)
CPT/HCPCS: 82306; 82310; 82565

== ENCOUNTER 2024-04-01 12:43 | Outpatient (RCR) | payer MEDICARE, SELFPAY ==
[2024-04-01 13:32] VITALS: BP 137/87; PULSE 78; RESP 18; TEMP 36.4; O2SAT 93
[2024-04-01] MEDS: ZOLEDRONIC ACID 5 mg/100 ml 100 ML 400 MG IVPB (13:42)
== END 2024-09-28 23:59 | disposition home or self-care (01) ==
LOC: CCIC 12:43
PROVIDERS: PCP Internal Medicine; Referring Provider Internal Medicine; Visit Provider Clinical Nurse Specialist
DX: M81.0 Age-related osteoporosis without current pathological fracture (principal)
CPT/HCPCS: 96365; J3489

== ENCOUNTER 2024-08-02 10:45 | Outpatient (CLI) | payer MEDICARE, SELFPAY | END 2024-08-02 10:46 | disposition home or self-care (01) | LOC: NFLDREF 08-06 07:55 | PROVIDERS: PCP Internal Medicine; Referring Provider Internal Medicine; Visit Provider Internal Medicine | DX: M81.0 Age-related osteoporosis without current pathological fracture (principal) | CPT/HCPCS: 82306 ==

== ENCOUNTER 2024-11-04 19:13 | Outpatient (CLI) | payer MEDICARE, SELFPAY | END 2024-11-04 19:14 | disposition home or self-care (01) | PROVIDERS: PCP Internal Medicine; Visit Provider Family Medicine | DX: S09.90XA Unspecified injury of head, initial encounter (principal); W22.8XXA Striking against or struck by other objects, initial encounter; Y92.9 Unspecified place or not applicable | CPT/HCPCS: A0998 ==

== ENCOUNTER 2024-11-18 14:36 | Outpatient (CLI) | payer MEDICARE, SELFPAY | END 2024-11-18 14:37 | disposition home or self-care (01) | PROVIDERS: PCP Internal Medicine; Visit Provider Internal Medicine | DX: G47.30 Sleep apnea, unspecified (principal); R53.81 Other malaise; R53.83 Other fatigue; Z79.899 Other long term (current) drug therapy | CPT/HCPCS: 80053; 82306; 82607; 84443; 87086 ==

== ENCOUNTER 2025-02-24 13:23 | Outpatient (CLI) | payer MEDICARE, MEDICAID, SELFPAY ==
--- NOTE | 2025-02-24 14:00 | CRLHL7_ITS ---
For Patients: As a result of the Century Cures Act, medical imaging exams and procedure reports are released immediately into your electronic medical record. You may view this report before your referring provider. If you have questions, please contact your health care provider. DXA BONE MINERAL DENSITY STUDY Reason for exam: Age-related osteoporosis. Current height (in): 67.5. Weight (lb): 175. Menopause age: 44. Ethnicity: White. 1. Have you had a previous hip or vertebral fracture? Yes. 2. Have you had any fractures during your adult life which did not result from significant trauma (e.g., auto accident)? Yes. 3. Did either of your parents have a hip fracture? Yes. 4. Do you smoke? No. 5. Have you ever taken Glucocorticoids? No. 6. Do you have rheumatoid arthritis? No. 7. Do you have secondary osteoporosis? Yes. 8. Do you drink 3 or more alcoholic drinks per day? No. 9. Are you being treated for osteoporosis? Yes. 10. Have you ever taken any of the following medications: Actonel, Evista, Fosamax, Miacalcin, Reclast, Boniva, Forteo, HRT (i.e. estrogen/hormone therapy), Protelos, Prolia, Vitamin D, Calcium, other ??? please specify. ANSWER: Yes, Fosamax (i.e., alendronate), Reclast (i.e., zoledronate), Vitamin D, and calcium. 11. Do you have any of the following medical conditions: Anorexia or bulimia, asthma or emphysema, end stage renal disease, hyperparathyroidism, any seizure disorders, cancer, inflammatory bowel diseases, hysterectomy, other ??? please specify. ANSWER: Stroke 2009. 12. What was your maximum height (inches)? 67.5. 13. Do you perform weight bearing exercise regularly? Yes. 14. Do you regularly consume dairy products? Yes. 15. Do you drink caffeinated beverages? Yes. 16. At what age did your period start? 17. 17. Are you premenopausal? No. 18. How many full-term pregnancies have you had? 1. 19. Have you ever missed your period for more than 6 months in a row (not including or menopause)? No. TECHNIQUE: Bone mineral density study was performed using the [employer]. FINDINGS: The results of the study expressed as bone mineral density (BMD) are as follows: Lumbar spine L1 to L3: BMD: 0.815 g/cm2. T-score: -1.8. Z-score: 0.4. Neck Left: BMD: 0.472 g/cm2. T-score: -3.8. Z-score: -1.8. Total Left: BMD: 0.663 g/cm2. T-score: -2.3. Z-score: -0.6. IMPRESSION: Osteoporosis. *Comparison exams done prior to 09/2019 were performed on different unit, erento. Bandar Rodriguze M.D. Diagnostic Radiologist [email or web address] JOAN/darren banks/Dictated by: Bandar Rodriguez MD @ 02/25/2025 11:57:00 AM (Electronically Signed)
== END 2025-02-24 13:24 | disposition home or self-care (01) ==
LOC: RAD 13:25
PROVIDERS: PCP Internal Medicine; Visit Provider Internal Medicine
DX: M81.0 Age-related osteoporosis without current pathological fracture (principal)
CPT/HCPCS: 77080

== ENCOUNTER 2025-03-31 11:00 | Outpatient (CLI) | payer MEDICARE, MEDICAID, SELFPAY | END 2025-03-31 11:01 | disposition home or self-care (01) | LOC: NFLDREF 04-05 10:20 | PROVIDERS: PCP Internal Medicine; Referring Provider Internal Medicine; Visit Provider Internal Medicine | DX: E78.5 Hyperlipidemia, unspecified (principal); M81.0 Age-related osteoporosis without current pathological fracture | CPT/HCPCS: 80048; 80061; 82306 ==